=== PATIENT | female | born 1945 | race Caucasian/White ===

== ENCOUNTER 2020-01-11 14:45 | Outpatient (CLI) | payer MEDICARE, SELFPAY ==
--- NOTE | ~2020-01-11 | US_ITS ---
EXAMINATION: US retroperitoneal comp DATE: 01/11/2020 15:21 INDICATION: Hypertension, abnormal kidney function TECHNIQUE: Multiple grayscale and Doppler ultrasound images of the kidneys were obtained. COMPARISON: None. FINDINGS: The right kidney measures 9.7 x 4.0 x 4.5 cm. The left kidney measures 9.7 x 4.8 x 4.7 cm a nd contains a cyst. The kidneys demonstrate normal parenchymal echogenicity. There is no hydronephros is. The bladder is normal. IMPRESSION: 1. Normal kidneys without hydronephrosis. Reviewed, dictated and finalized at location A.
== END 2020-01-11 14:46 | disposition home or self-care (01) ==
PROVIDERS: PCP Emergency Medicine; Visit Provider Internal Medicine Nephrology
DX: I10 Essential (primary) hypertension (principal); R94.4 Abnormal results of kidney function studies; I73.9 Peripheral vascular disease, unspecified
CPT/HCPCS: 76770

== ENCOUNTER 2020-12-24 14:21 | Outpatient (CLI) | payer MEDICARE, SELFPAY ==
--- NOTE | ~2020-12-24 | XR_ITS ---
XR wrist LT 2V DATE: 12/24/2020 14:38 INDICATION: Lateral wrist pain following a fall 5 days ago TECHNIQUE: AP and lateral views COMPARISON: None FINDINGS: There is a subtle linear lucency of the lower aspect of the distal radial metaphyseal abhishek x suggesting a nondisplaced fracture. No other fracture or dislocation is evident. Osteopenia. IMPRESSION: Probable subtle linear nondisplaced distal radial anterior metaphyseal cortical fracture Reviewed, dictated and finalized at location A. IMPRESSION: Probable subtle linear nondisplaced distal radial anterior metaphys eal cortical fracture
== END 2020-12-24 14:22 | disposition home or self-care (01) ==
PROVIDERS: PCP Emergency Medicine; Visit Provider Emergency Medicine
DX: M85.832 Other specified disorders of bone density and structure, left forearm (principal)
CPT/HCPCS: 73100

== ENCOUNTER 2021-09-23 17:58 | Emergency (ER) | payer MEDICARE, SELFPAY ==
[2021-09-23] VITALS (7 sets, daily range): BP systolic 191–293; BP diastolic 63–95; PULSE 52–56; RESP 12–17; TEMP 36.8; O2SAT 98–100
--- NOTE | ~2021-09-23 | XR_ITS ---
XR chest 2V DATE: 09/23/2021 18:33 INDICATION: Hypertension spike for 3 days. Headache. TECHNIQUE: PA and lateral views COMPARISON: 04/08/2018 PA and lateral chest FINDINGS: Cardiac megaly. Aortic calcification and ectasia and unfolding. No hilar or mediastinal enl argement. There is old pulmonary granulomatous disease. Moderate hyperinflation. No pulmonary infiltrate or consolidation, pleural effusion or pulmonary vasc ular congestion or pneumothorax. There is degenerative spurring of the thoracic and lumbar spine. IMPRESSION: Bilateral hyperinflation, suggesting COPD Cardiac megaly Aortic atherosclerosis Old pulmonary granulomatous disease Reviewed, dictated and finalized at location A. MATCHER AND FITTER
--- NOTE | 2021-09-23 18:08 | ECG_ITS ---
Measurements Intervals [place] Rate: 56 P: 54 [place]: 156 QRS: -8 QRSD: 83 T: 72 QT: 433 QTc: 419 Interpretive Statements SINUS BRADYCARDIA DELAYED R-WAVE PROGRESSION POSSIBLE LEFT ATRIAL ENLARGEMENT [-0.1mV P WAVE IN V1/V2] NONSPECIFIC T-WAVE ABNORMALITY ABNORMAL EKG NO PREVIOUS ECG AVAILABLE FOR COMPARISON Electronically Signed On 09-24-2021 9:02:28 SAND CARRIER by Paco Castañeda M.D.
[2021-09-23 18:32] LABS: Basophils Percent Auto 0.5 % (0.2-1.2); Eosinophils Absolute Auto 0.4 K/mm3 (0-0.3); Eosinophils Percent Auto 4.2 % (0-4.4); Hematocrit 31.8 % (37.0-47.0); Immature Granulocyte Absolute 0.03 K/mm3 (0.00-0.031); Immature Granulocyte Percent A 0.4 % (0-0.5); Immature Platelet Fraction Pct 7.5 % (0.9-11.2); Lymphocytes Absolute Auto 2.25 K/mm3 (0.9-3.2); Lymphocytes Percent Auto 26.5 % (18.3-44.2); Mean Corpuscular HGB Conc 31.4 g/dl (32-36); Mean Corpuscular Hemoglobin 28.5 pg (26-34); Mean Corpuscular Volume 90.6 fl (80-100); Mean Platelet Volume 11.7 fl (7.4-10.4); Monocytes Absolute Auto 0.8 K/mm3 (0.1-0.6); Monocytes Percent Auto 9.8 % (2.6-8.5); Neutrophils Percent Auto 58.6 % (45.5-73.1); Platelet Count Result 143 k/mm3 (150-375); Red Blood Count 3.51 M/mm3 (4.2-5.4); Red Cell Distribution Width 15.1 % (11.5-14.5); White Blood Count 8.5 K/mm3 (4.5-10.0)
[2021-09-23 18:41] LABS: Prothrombin Time 12.8 Seconds (11.1-14.7)
[2021-09-23 18:42] LABS: Partial Thromboplastin Time 29.7 SECONDS (22.3-36.8)
[2021-09-23 18:53] LABS: Alanine Aminotransferase 18 U/L (4-35); Albumin Level 4.3 g/dL (3.5-5.1); Alkaline Phosphatase 84 U/L (38-126); Anion Gap 9 mmol/L (8-16); Aspartate Amino Transferase 32 U/L (14-36); Bilirubin,Total 0.5 mg/dL (0.2-1.3); Blood Urea Nitrogen 42 mg/dL (7-17); Calcium 9.3 mg/dL (8.4-10.2); Carbon Dioxide 22 mmol/L (22-30); Chloride 104 mmol/L (98-107); Estimated CRCL calculation 20 ml/min; Estimated Glomerular Filt Rate 24; Glucose 100 mg/dL (65-110); Lipase 284 U/L (23-300); Sodium 135 mmol/L (137-145)
[2021-09-23 19:05] LABS: Troponin I < 0.012 ng/mL (0.000-0.034)
[2021-09-23] MEDS: ASPIRIN 81 MG CHEWABLE TABLET 324 MG PO (19:24)
--- NOTE | 2021-09-23 20:12 | ED.RECABL ---
HPI - Recheck/Abnormal Lab/Rx General Chief Complaint: Recheck/Abnormal Lab/Rx Stated Complaint: high BP Time Seen by Provider: 09/23/21 19:41 Source: patient History of Present Illness HPI narrative: Patient presents with elevated blood pressure. Reports she checked it because she felt tense inside and noticed it was greater than 200. Reports her blood pressure fluctuates quite a bit from the 130 systolic to the 180s systolic. She denies any recent changes to her medication and reports she is diligent about taking her blood pressure medication. She currently reports a posterior headache denies any focal numbness or weakness denies any changes in vision or hearing denies any chest pain or shortness of breath Related Data Allergies Allergy/AdvReac Type Severity Reaction Status Date / Time No Known Allergies Allergy Verified 04/22/21 14:41 Review of Systems Review of Systems: CONSTITUTIONAL: Denies fever, chills, or sweats. EYES: Denies visual changes, redness, or discharge. ENT: Denies rhinorrhea, congestion, sore throat, or otalgia. CARDIOVASCULAR: Denies chest pain, palpitations, or edema. RESPIRATORY: Denies cough or dyspnea. GASTROINTESTINAL: Denies abdominal pain, nausea, vomiting, or diarrhea. GENITOURINARY: Denies dysuria or hematuria. SKIN: Denies rash or itching. MUSCULOSKELETAL: Denies back pain, joint pain, or myalgia. NEUROLOGIC: Denies numbness, dizziness, or weakness. PSYCHIATRIC: Denies anxiety or depression. All systems reviewed & are unremarkable except as noted in HPI and below PMFSH Past Medical History Medical History CKD (chronic kidney disease) stage 4, GFR 15-29 ml/min HLD (hyperlipidemia) Hypertension Kidney disease Wrist fracture, left Surgical History Surgical History History of intravascular stent placement History of surgery Right leg artery surgery Family History Family History Father Cerebrovascular accident, Onset Age: 49 Other Asthma Diabetes mellitus Hypertension Kidney disorder Social History Social History Smoking packs per day: 2 Smoking cigarettes per day: 40.0 Years smoked: 15 Smoking pack-years: 30.00 Smoking end date: 07/26/13 Alcohol intake: current Drinks per week: 4 Substance use: never Substance use type: does not use Gender identity (if verbalized by the patient): Female Exam Narrative: GENERAL: Well-appearing, well-nourished, and in no acute distress. HEAD: Normocephalic, atraumatic. EYES: PERRLA and EOMI. ENT: Nares clear, no rhinorrhea or epistaxis. Mucous membranes moist. NECK: Supple. No masses. No JVD CHEST: Clear to auscultation. No respiratory distress. No wheezes rales or rhonchi HEART: Regular rate and rhythm. No murmur heard. Normal peripheral pulses. ABDOMEN: Soft, nontender, nondistended, normal active bowel sounds. EXTREMITIES: Normal range of motion. No edema. SKIN: Warm, dry, no rash. NEURO: Cranial nerves II through XII are intact patient on 5 out of 5 strength in all extremities sensation intact to light touch in all extremities alert and oriented x3. PSYCH: Normal mood and affect. Course Reevaluation(s) Reevaluation #1: Patient is resting comfortably results reviewed with patient. Patient prefers outpatient management of her symptoms will increase her medication have her follow-up with her primary care provider. Time: 21:34 Vital Signs Vital signs: Vital Signs Temperature 36.8 C 09/23/21 18:08 Pulse Rate 56 L 09/23/21 18:08 Respiratory Rate 16 09/23/21 18:08 Blood Pressure 293/95 H 09/23/21 18:08 Pulse Oximetry 100 09/23/21 18:08 Temperature 36.8 C 09/23/21 18:08 Pulse Rate 56 L 09/23/21 22:05 Respiratory Rate 17 09/23/21 22:05 Blood Pressure 197/6
[2021-09-23 20:26] LABS: Add Urine Microscopic? NO; Appearance Urine Clear (Clear); Bilirubin Urine Negative (Negative); Blood Urine Negative (Negative); Color Urine Colorless (Yellow); Glucose Urine UA Negative (Negative); Ketones Urine Negative (Negative); Leukocyte Esterase Ur Negative LEU/UL (Negative); Nitrate Urine Negative (Negative); Protein Urine Negative (Negative); Specific Grav Ur 1.003 (1.001-1.035); Urobilinogen Urine Negative mg/dL (<2.0)
[2021-09-23] MEDS: hydrALAZINE HCL 20 MG/ML VIAL 10 MG IV PUSH (20:33)
[2021-09-23 21:12] LABS: Troponin I < 0.012 ng/mL (0.000-0.034)
== END 2021-09-23 22:07 | disposition home or self-care (01) ==
PROVIDERS: Emergency Medicine; Emergency Provider Emergency Medicine; PCP Emergency Medicine
DX: I12.9 Hypertensive chronic kidney disease with stage 1 through stage 4 chronic kidney disease, or unspecified chronic kidney disease (principal); N18.4 Chronic kidney disease, stage 4 (severe); Z87.891 Personal history of nicotine dependence; J44.9 Chronic obstructive pulmonary disease, unspecified
CPT/HCPCS: 36415; 71046; 80053; 81003; 83690; 84484; 85025; 85055; 85610; 85730; 93005; 96374; 99284; A9270; J0360

== ENCOUNTER 2021-09-30 16:17 | Outpatient (CLI) | payer MEDICARE, SELFPAY ==
--- NOTE | ~2021-09-30 | MM_ITS ---
EXAMINATION: MM screening arthur BI w arash HISTORY: Screening TECHNIQUE: Craniocaudal and mediolateral oblique 3-D tomosynthesis images were obtained and synthetic 2-D images were generated. CAD analysis was submitted and interpreted. COMPARISON: Comparison to multiple prior studies sequentially, with oldest reviewed study dated 05/26. BREAST PARENCHYMAL COMPOSITION: The breasts are extremely dense, which lowers the sensitivity of mamm ography FINDINGS: There is no evidence of suspicious mass, calcification, or architectural distortion to sugg est malignancy in either breast. There has been no suspicious interval change. IMPRESSION: 1. No mammographic evidence of malignancy. 2. Recommend routine screening mammography in one year. BI-RADS Category 1: Negative Reviewed, dictated and finalized at location A. ED PIPE MAKER
== END 2021-09-30 16:18 | disposition home or self-care (01) ==
PROVIDERS: PCP Emergency Medicine; Visit Provider Emergency Medicine
DX: Z12.31 Encounter for screening mammogram for malignant neoplasm of breast (principal)
CPT/HCPCS: 77063; 77067

== ENCOUNTER 2021-10-08 09:24 | Emergency (ER) | payer MEDICARE, SELFPAY ==
--- NOTE | ~2021-10-08 | XR_ITS ---
EXAMINATION: XR chest 2V DATE: 10/08/2021 11:29 INDICATION: Hypertension TECHNIQUE: PA and lateral views of the chest were obtained. COMPARISON: Chest radiograph dated 09/23/2021 FINDINGS: Multiple bilateral calcified pulmonary nodules along with calcified hilar and mediastinal lymph nodes consistent with old granulomatous disease. No other airspace opacities, pulmonary edema, pleural eff usion or pneumothorax. Cardiomegaly. Mild thoracic spondylosis. IMPRESSION: 1. Cardiomegaly. Reviewed, dictated and finalized at location A. IMPRESSION: 1. Cardiomegaly.
[2021-10-08 09:26] VITALS: BP 222/86; PULSE 55; RESP 16; TEMP 36.6; O2SAT 100
[2021-10-08 09:49] VITALS: BP 211/73; PULSE 52; RESP 13; O2SAT 100
--- NOTE | 2021-10-08 11:08 | ECG_ITS ---
Measurements Intervals [place] Rate: 51 P: 50 [place]: 132 QRS: -12 QRSD: 81 T: 65 QT: 436 QTc: 403 Interpretive Statements SINUS BRADYCARDIA SHORT MN INTERVAL, NO DELTA WAVE SEEN COMPARED TO ECG 09/23/2021 18:13:57 NO SIGNIFICANT CHANGES Electronically Signed On 10-08-2021 13:15:18 CDT by Domi Arroyo M.D.
[2021-10-08 11:25] VITALS: BP 197/71; PULSE 52; RESP 18; O2SAT 100
[2021-10-08 11:32] LABS: Basophils Percent Auto 0.3 % (0.2-1.2); Eosinophils Absolute Auto 0.1 K/mm3 (0-0.3); Eosinophils Percent Auto 1.3 % (0-4.4); Hematocrit 33.5 % (37.0-47.0); Hemoglobin 10.4 g/dL (12.0-15.0); Immature Granulocyte Absolute 0.02 K/mm3 (0.00-0.031); Immature Granulocyte Percent A 0.2 % (0-0.5); Lymphocytes Absolute Auto 1.21 K/mm3 (0.9-3.2); Lymphocytes Percent Auto 14.1 % (18.3-44.2); Mean Corpuscular Hemoglobin 28.6 pg (26-34); Mean Platelet Volume 11.4 fl (7.4-10.4); Monocytes Absolute Auto 0.5 K/mm3 (0.1-0.6); Monocytes Percent Auto 5.9 % (2.6-8.5); Neutrophils Absolute Auto 6.7 K/mm3 (1.3-6.7); Neutrophils Percent Auto 78.2 % (45.5-73.1); Platelet Count Result 180 k/mm3 (150-375); Red Blood Count 3.64 M/mm3 (4.2-5.4); Red Cell Distribution Width 15.5 % (11.5-14.5); White Blood Count 8.6 K/mm3 (4.5-10.0)
[2021-10-08 11:41] LABS: Alanine Aminotransferase 23 U/L (4-35); Albumin Level 4.4 g/dL (3.5-5.1); Alkaline Phosphatase 83 U/L (38-126); Anion Gap 8 mmol/L (8-16); Aspartate Amino Transferase 34 U/L (14-36); Bilirubin,Total 0.4 mg/dL (0.2-1.3); Blood Urea Nitrogen 38 mg/dL (7-17); Calcium 9.8 mg/dL (8.4-10.2); Carbon Dioxide 26 mmol/L (22-30); Chloride 107 mmol/L (98-107); Estimated CRCL calculation 20 ml/min; Estimated Glomerular Filt Rate 24; Glucose 115 mg/dL (65-110); Lipase 315 U/L (23-300); Potassium 4.8 mmol/L (3.4-5.0); Sodium 141 mmol/L (137-145)
[2021-10-08 11:45] LABS: INR 0.9; Prothrombin Time 11.9 Seconds (11.1-14.7)
[2021-10-08 11:55] LABS: Troponin I < 0.012 ng/mL (0.000-0.034)
[2021-10-08 13:12] VITALS: BP 215/74; PULSE 52; RESP 16; O2SAT 100
[2021-10-08] MEDS: hydrALAZINE HCL 20 MG/ML VIAL 10 MG IV PUSH (13:13)
[2021-10-08 13:54] VITALS: BP 183/67; PULSE 60; RESP 18; O2SAT 100
--- NOTE | 2021-10-08 14:33 | ED.GENADULT ---
HPI - General Adult General Chief complaint: Recheck/Abnormal Lab/Rx Stated complaint: HTN Time Seen by Provider: 10/08/21 11:09 Source: patient Mode of arrival: ambulatory Limitations: no limitations History of Present Illness HPI narrative: 76-year-old with a history of hypertension and CKD here with complaints of elevated blood pressure for last few days. Patient states that she has been taking all her medications as prescribed. She presently denies any headache, chest pain, blurred vision. Onset (ago): day(s) (1) Exacerbating factors: none Related Data Allergies Allergy/AdvReac Type Severity Reaction Status Date / Time No Known Allergies Allergy Verified 10/08/21 09:26 Review of Systems Review of Systems: All systems reviewed & are unremarkable except as noted in HPI and below Constitutional: Constitutional: Reports no additional constitutional complaints Eyes: Eyes: Reports no additional eye complaints ENT: Reports system reviewed and no additional complaints, except as documented Cardiovascular: Cardiovascular: Reports no additional cardiovascular complaints Respiratory: Respiratory: Reports no additional respiratory complaints Gastrointestinal: Gastrointestinal: Reports no additional gastrointestinal complaints Musculoskeletal: Musculoskeletal: Reports no additional musculoskeletal complaints Integumentary/Breasts: Skin/Breast: Reports system reviewed and no additional complaints, except as docu Neurologic: Reports system reviewed and no additional complaints, except as documented PMFSH Past Medical History Medical History CKD (chronic kidney disease) stage 4, GFR 15-29 ml/min HLD (hyperlipidemia) Hypertension Kidney disease Wrist fracture, left Surgical History Surgical History History of intravascular stent placement History of surgery Right leg artery surgery Family History Family History Father Cerebrovascular accident, Onset Age: 49 Other Asthma Diabetes mellitus Hypertension Kidney disorder Social History Social History Smoking packs per day: 2 Smoking cigarettes per day: 40.0 Years smoked: 15 Smoking pack-years: 30.00 Smoking end date: 07/26/13 Alcohol intake: current Drinks per week: 4 Substance use: never Substance use type: does not use Gender identity (if verbalized by the patient): Female Exam Narrative: GENERAL: Well-appearing, well-nourished, and in no acute distress. HEAD: Normocephalic, atraumatic. EYES: PERRLA and EOMI. NECK: Supple. CHEST: Clear to auscultation. No respiratory distress. HEART: Regular rate and rhythm. No murmur heard. Normal peripheral pulses. ABDOMEN: Soft, nontender, nondistended, normal active bowel sounds. EXTREMITIES: Normal range of motion. No edema. SKIN: Warm, dry, no rash. NEURO: No focal deficits. Alert and oriented x3. PSYCH: Normal mood and affect. Course Course Emergency Course: Patient presently is asymptomatic however her blood pressure was 222/86 after repeated checks I did give her IV hydralazine 10 mg which brought her blood pressure down to 176/72. She states she is feeling much better. Informed her to take her home medications, follow-up with her primary doctor. discussed with Dr. Brennan recommended to increase the dose of Losartan to 100 mg daily and will follow up in the office in 2 days. Vital Signs Vital signs: Vital Signs Temperature 36.6 C 10/08/21 09:26 Pulse Rate 55 L 10/08/21 09:26 Respiratory Rate 16 10/08/21 09:26 Blood Pressure 222/86 H 10/08/21 09:26 Pulse Oximetry 100 10/08/21 09:26 Temperature 36.6 C 10/08/21 09:26 Pulse Rate 60 10/08/21 13:54 Respiratory Rate 18 10/08/21 13:54 Blood Pressure 183/67 H 10/08/21 13:54 Pulse Oxi
[2021-10-08 14:41] LABS: Troponin I < 0.012 ng/mL (0.000-0.034)
[2021-10-08 14:53] VITALS: BP 182/61; PULSE 60; RESP 18; O2SAT 100
== END 2021-10-08 15:09 | disposition home or self-care (01) ==
PROVIDERS: Emergency Medicine; Emergency Provider Family Medicine; PCP Emergency Medicine
DX: I12.9 Hypertensive chronic kidney disease with stage 1 through stage 4 chronic kidney disease, or unspecified chronic kidney disease (principal); N18.4 Chronic kidney disease, stage 4 (severe); R00.1 Bradycardia, unspecified; F17.210 Nicotine dependence, cigarettes, uncomplicated; E78.5 Hyperlipidemia, unspecified
CPT/HCPCS: 36415; 71046; 80053; 83690; 84484; 85025; 85610; 85730; 93005; 96374; 99284; J0360

== ENCOUNTER 2022-06-20 20:05 | Inpatient (IN) | payer MEDICARE, SELFPAY ==
[2022-06-20] VITALS (9 sets, daily range): BP systolic 200–233; BP diastolic 74–107; PULSE 69–87; RESP 18–31; TEMP 36.6; O2SAT 90–96
--- NOTE | ~2022-06-20 | XR_ITS ---
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 RESULT: Lines, tubes, and devices: None. Lungs and pleura: Increased diffuse reticular opacities. Increased streaky bibasilar opacities. Cardiomediastinal silhouette: Stable. Other: No acute osseous or upper abdominal finding. IMPRESSION: Interstitial pulmonary edema, with bibasilar atelectasis. Reviewed, dictated and finalized at location K. M [employer] TURBINE ASSEMBLER
--- NOTE | 2022-06-20 20:39 | ECG_ITS ---
Measurements Intervals [place] Rate: 71 P: 51 [place]: 147 QRS: -16 QRSD: 79 T: 75 QT: 385 QTc: 419 Interpretive Statements SINUS RHYTHM POSSIBLE LEFT ATRIAL ENLARGEMENT NONSPECIFIC ST & T-WAVE ABNORMALITY- ANTEROLAT/HIGH LAT LEADS BASELINE ARTIFACT- II, AVF, V4-V5 BORDERLINE ECG COMPARED TO ECG 10/08/2021 11:52:52 SIN[address] NOW PRESENT ST-T WAVE ABNORMALITY NOW PRESENT Electronically Signed On 06-20-2022 22:15:10 ELECTRONIC PUBLISHER by Richard Padilla D.O.
--- NOTE | 2022-06-20 20:46 | ED.URI ---
HPI - URI/Sore Throat General Chief Complaint: Upper Respiratory Infection Stated Complaint: URI, dyspnea Time Seen by Provider: 06/20/22 20:42 History of Present Illness HPI Narrative: Patient is a 77-year-old female with a history of hypertension, CKD presenting with dyspnea. Patient states that she has had cold symptoms for the last several days. Today she was able to go to work but she felt increasingly short of breath throughout the day. By the time she got home she felt like she could not even walk around without getting extremely winded. States that she still has a cough and nasal congestion. She denies any chest pain. No leg swelling. No headache, abdominal pain, nausea or vomiting, diarrhea, dysuria. Related Data Home Medications Medication Instructions Recorded Confirmed aspirin 81 mg chewable tablet 81 mg PO DAILY 06/21/22 06/21/22 atorvastatin 20 mg tablet 20 mg PO DAILY 06/21/22 06/21/22 cholecalciferol (vitamin D3) 50 50 mcg PO DAILY 06/21/22 06/21/22 mcg (2,000 unit) tablet (Vitamin D3) nebivolol 20 mg tablet (Bystolic) 20 mg PO DAILY 06/21/22 06/21/22 Allergies Allergy/AdvReac Type Severity Reaction Status Date / Time No Known Allergies Allergy Verified 06/21/22 00:59 Review of Systems Review of Systems: All systems reviewed & are unremarkable except as noted in HPI and below PMFSH Past Medical History Medical History CKD (chronic kidney disease) stage 4, GFR 15-29 ml/min HLD (hyperlipidemia) Hypertension Kidney disease Wrist fracture, left Surgical History Surgical History History of intravascular stent placement History of surgery Right leg artery surgery Family History Family History Father Cerebrovascular accident, Onset Age: 49 History of blood clots Kidney disorder Hypertension Mother Asthma Diabetes mellitus Sibling Congestive heart failure Social History Social History Smoking packs per day: 2 Smoking cigarettes per day: 40.0 Years smoked: 25 Smoking pack-years: 50.00 Smoking status: Former smoker Tobacco type: cigarettes Second hand tobacco smoke exposure: No Smoking end date: 07/26/13 Alcohol intake: current Drinks per week: 4 Substance use: former Substance use type: marijuana Lack of Transportation: No Lack of Food: Never True Current Housing: I Have Housing Concerned About Future Housing: No Difficulty Paying Gas/Electric Bills: No Difficulty Paying for Meds: No Currently Unemployed: No Education: High School Diploma/GED Difficulty w/ Childcare or Family Care: No Gender identity (if verbalized by the patient): Female Spiritual care concerns: No Exam Narrative: GENERAL: Well-appearing, well-nourished, and in no acute distress. HEAD: Normocephalic, atraumatic. EYES: PERRLA and EOMI. ENT: Nares clear, no rhinorrhea or epistaxis. Mucous membranes moist. NECK: Supple. CHEST: Clear to auscultation. No respiratory distress. Tachypneic HEART: Regular rate and rhythm. No murmur heard. Normal peripheral pulses. ABDOMEN: Soft, nontender, nondistended, normal active bowel sounds. EXTREMITIES: Normal range of motion. No edema. SKIN: Warm, dry, no rash. NEURO: No focal deficits. Alert and oriented x3. PSYCH: Normal mood and affect. Course Vital Signs Vital signs: Vital Signs Temperature 97.8 F 06/20/22 20:07 Pulse Rate 80 06/20/22 20:07 Respiratory Rate 18 06/20/22 20:07 Blood Pressure 200/107 H 06/20/22 20:07 Pulse Oximetry 93 06/20/22 20:07 Oxygen Delivery Room Air 06/20/22 20:07 Temperature 98.5 F 06/21/22 21:39 Pulse Rate 91 06/21/22 21:39 Respiratory Rate 16 06/21/22 21:39 Blood Pressure 179/80 H 06/21/22 21:39 Pulse Oximetry 93 06/21/22 2
[2022-06-20 21:07] LABS: Basophils Percent Auto 0.3 % (0.2-1.2); Eosinophils Absolute Auto 0.3 K/mm3 (0-0.3); Hematocrit 29.2 % (37.0-47.0); Immature Granulocyte Absolute 0.06 K/mm3 (0.00-0.031); Immature Granulocyte Percent A 0.4 % (0-0.5); Lymphocytes Absolute Auto 1.46 K/mm3 (0.9-3.2); Lymphocytes Percent Auto 9.9 % (18.3-44.2); Mean Corpuscular HGB Conc 30.8 g/dl (32-36); Mean Corpuscular Hemoglobin 27.8 pg (26-34); Mean Corpuscular Volume 90.1 fl (80-100); Mean Platelet Volume 10.8 fl (7.4-10.4); Monocytes Absolute Auto 1.2 K/mm3 (0.1-0.6); Monocytes Percent Auto 8.1 % (2.6-8.5); Neutrophils Absolute Auto 11.7 K/mm3 (1.3-6.7); Neutrophils Percent Auto 79.3 % (45.5-73.1); Platelet Count Result 247 k/mm3 (150-375); Red Blood Count 3.24 M/mm3 (4.2-5.4); Red Cell Distribution Width 15.9 % (11.5-14.5); White Blood Count 14.8 K/mm3 (4.5-10.0)
[2022-06-20] MEDS: SODIUM CHLORIDE 0.9% IV 1,000 ML 999 ML IV CONT (21:07)
[2022-06-20 21:17] LABS: Alanine Aminotransferase 47 U/L (6-35); Albumin Level 3.9 g/dL (3.5-5.1); Alkaline Phosphatase 129 U/L (38-126); Anion Gap 7 mmol/L (8-16); Aspartate Amino Transferase 91 U/L (14-36); Bilirubin,Total 0.6 mg/dL (0.2-1.3); Blood Urea Nitrogen 25 mg/dL (7-17); Calcium 8.8 mg/dL (8.4-10.2); Carbon Dioxide 23 mmol/L (22-30); Chloride 109 mmol/L (98-107); Estimated CRCL calculation 26 ml/min; Estimated Glomerular Filt Rate 34; Glucose 146 mg/dL (65-110); Potassium 3.7 mmol/L (3.4-5.0); Sodium 139 mmol/L (137-145)
--- NOTE | 2022-06-20 21:24 | PC.NURSE ---
Liborio Sutton instructed this tech to walk with a pulse ox. started at 93% and dropped to 89 by the time pt got back to room. Pt. states that walking does make her increasingly short of breath. LIBORIO Sutton notified.
[2022-06-20 21:44] LABS: Influenza A QL RT-PCR Negative (Negative); Influenza B QL RT-PCR Negative (Negative); RSV RNA, RT-PCR Negative (Negative); SARS-CoV-2 RNA PCR Negative
[2022-06-20 21:48] LABS: Troponin I 0.122 ng/mL (0.000-0.034)
[2022-06-20] MEDS: hydrALAZINE HCL 20 MG/ML VIAL IV PUSH (21:56)
[2022-06-20 22:10] LABS: NT Pro B Type Natriuretic Pept 8220 pg/mL (5-100)
--- NOTE | 2022-06-20 22:11 | PM.IMHP ---
H&P: HPI History of Present Illness Date/Time: 06/20/22 22:11 Chief Complaint: Shortness of breath. [facility] Past Medical History Medical History CKD (chronic kidney disease) stage 4, GFR 15-29 ml/min HLD (hyperlipidemia) Hypertension Kidney disease Wrist fracture, left Surgical History Surgical History History of intravascular stent placement History of surgery Right leg artery surgery Family History Family History (Updated 06/21/22 @ 01:25 by Coretta Phillips RN) Father Cerebrovascular accident, Onset Age: 49 History of blood clots Kidney disorder Hypertension Mother Asthma Diabetes mellitus Sibling Congestive heart failure Social History Social History Smoking packs per day: 2 Smoking cigarettes per day: 40.0 Years smoked: 25 Smoking pack-years: 50.00 Smoking status: Former smoker Tobacco type: cigarettes Second hand tobacco smoke exposure: No Smoking end date: 07/26/13 Alcohol intake: current Drinks per week: 4 Substance use: former Substance use type: marijuana Lack of Transportation: No Lack of Food: Never True Current Housing: I Have Housing Concerned About Future Housing: No Difficulty Paying Gas/Electric Bills: No Difficulty Paying for Meds: No Currently Unemployed: No Education: High School Diploma/GED Difficulty w/ Childcare or Family Care: No Gender identity (if verbalized by the patient): Female Spiritual care concerns: No Meds Home Medications and Allergies Home Medications Medication Instructions Recorded Confirmed Type amlodipine 10 mg tablet (Norvasc) 10 mg PO DAILY #90 tabs 10/21/21 06/21/22 Rx clopidogrel 75 mg tablet 75 mg PO DAILY #90 tabs 05/19/22 06/21/22 Rx losartan 100 mg tablet 100 mg PO DAILY #90 tabs 05/19/22 06/21/22 Rx aspirin 81 mg chewable tablet 81 mg PO DAILY 06/21/22 06/21/22 History atorvastatin 20 mg tablet 20 mg PO DAILY 06/21/22 06/21/22 History cholecalciferol (vitamin D3) 50 50 mcg PO DAILY 06/21/22 06/21/22 History mcg (2,000 unit) tablet (Vitamin D3) nebivolol 20 mg tablet (Bystolic) 20 mg PO DAILY 06/21/22 06/21/22 History Allergies Allergy/AdvReac Type Severity Reaction Status Date / Time No Known Allergies Allergy Verified 06/21/22 00:59 Vital Signs Vital Signs - 24 hr 06/20/22 20:07 06/20/22 20:17 06/20/22 20:20 Temperature 97.8 F Pulse Rate 80 81 Respiratory Rate 18 31 H Blood Pressure 200/107 H Pulse Oximetry 93 90 93 Oxygen Delivery Room Air Room Air 06/20/22 20:39 06/20/22 21:32 Temperature Pulse Rate 69 Respiratory Rate 30 H Blood Pressure 233/80 H 223/83 H Pulse Oximetry 95 Oxygen Delivery H&P: Results Labs Labs: Short CBC 06/20/22 Range/Units 21:01 WBC 14.8 H (4.5-10.0) K/mm3 Hgb 9.0 L (12.0-15.0) g/dL Hct 29.2 L (37.0-47.0) % Plt Count 247 (150-375) k/mm3 BMP 06/20/22 21:01 Sodium 139 Potassium 3.7 Chloride 109 H Carbon Dioxide 23 BUN 25 H D Creatinine 1.50 H Glucose 146 H Calcium 8.8 Cardiac Enzymes 06/20/22 Range/Units 21:01 Troponin I 0.122 H* (0.000-0.034) ng/mL Liver Function 06/20/22 Range/Units 21:01 Total Bilirubin 0.6 (0.2-1.3) mg/dL AST 91 H (14-36) U/L ALT 47 H (6-35) U/L Alkaline Phosphatase 129 H (38-126) U/L Albumin 3.9 (3.5-5.1) g/dL Assessment and Plan Assessment and plan (1) CKD (chronic kidney disease) stage 4, GFR 15-29 ml/min: Code(s): N18.4 - Chronic kidney disease, stage 4 (severe) Status: Acute (2) Hypertension: Qualifiers: Hypertension type: primary hypertension Qualified Code(s): I10 - Essential (primary) hypertension Code(s): I10 - Essential (primary) hypertension Status: Acute (3) CHF (conge
[2022-06-20] MEDS: ASPIRIN 81 MG CHEWABLE TABLET 324 MG PO (22:23)
[2022-06-20] MEDS: LOSARTAN POTASSIUM 100 MG TABLET PO (22:24)
[2022-06-20] MEDS: amLODIPine BESYLATE 5 MG TABLET 10 MG PO (22:24)
[2022-06-20] MEDS: NEBIVOLOL HCL 5 MG TABLET 20 MG PO (22:25)
[2022-06-21] VITALS (26 sets, daily range): BP systolic 168–209; BP diastolic 61–86; PULSE 71–91; RESP 16–26; TEMP 36.7–37.1; O2SAT 92–99; BMI 28.3
--- NOTE | 2022-06-21 00:52 | ADMGEN ---
This patient, Veronica Bowles, was admitted to IMU Room 214-01 on 06/21/22 at 0050. Patient/family oriented to hospital policies and general routines including ID bracelet, bed and alarms, visiting hours, pain management, procedures, bathroom and other care routines, personal items, smoking policy, room service/diet, and visiting hours. Information on how to activate the Rapid Response Team has been discussed. Patient/Family are encouraged to report perceived risks to care and to ask questions if they do not understand what they are told or what they should do.
--- NOTE | 2022-06-21 02:46 | PM.IMHP ---
H&P: HPI History of Present Illness Date/Time: 06/21/22 02:46 Chief Complaint: shortness of breath Narrative: this is a 77-year-old female with past medical history significant for COPD / emphysema, former smoker, hypertension, chronic kidney disease, dyslipidemia, peripheral arterial disease, coronary artery disease. patient presents to the emergency room due to shortness of breath, cough productive of sputum which is yellowish which is different to her usual patient used to be a smoker but quit a number of years ago, patient denies any fevers, rigors, chills, nausea, vomiting, abdominal pain, diarrhea denies chest pain, palpitations, no leg swelling, no PND, no orthopnea, has had progressively worsening shortness of breath for the last 3 days with productive cough of sputum mentioned above. Preliminary workup was significant for presentation to emergency room with a systolic blood pressure in the 200s, brain natriuretic peptide of 8000, creatinine of 1.5, patient tested negative for COVID-19, influenza A, influenza B, and RSV, a chest x-ray showed interstitial edema. Patient is been admitted for further evaluation management and treatment. Review of Systems Review of Systems: Shortness of breath, cough productive of yellowish sputum. Constitutional: Constitutional: Reports fatigue, Reports fever(s), Reports lethargy, Denies night sweats, Reports poor appetite and Denies weakness Eyes: Eyes: Denies change in vision ENT: Denies dysphagia, Denies vertigo, Denies dizziness and Denies odynophagia Cardiovascular: Cardiovascular: Denies chest pain, Denies irregular heart rhythm, Denies leg edema, Denies lightheadedness and Denies palpitations Respiratory: Respiratory: Reports change in phlegm color, Reports chest congestion, Reports cough, Reports excessive phlegm production, Reports dyspnea, Reports dyspnea on exertion and Reports wheezing Gastrointestinal: Gastrointestinal: Denies abdominal pain, Denies dyspepsia, Denies heartburn, Denies diarrhea, Denies nausea and Denies vomiting Genitourinary: Genitourinary: Denies dysuria Musculoskeletal: Musculoskeletal: Reports myalgias Integumentary/Breasts: Skin/Breast: Denies rash Neurologic: Denies focal weakness and Denies Sensory deficit (Neuro) Psychiatric: Psychiatric: Reports no additional psychiatric complaints and Reports as per HPI Endocrine: Endocrine: Denies cold intolerance, Denies flushing, Denies heat intolerance, Denies polyphagia, Denies polydipsia and Denies palpitations Hematologic/Lymphatic: Hematologic/Lymphatic: Reports no additional hematologic/lymphatic complaints and Reports as per HPI Allergic/Immunologic: Allergic/Immunologic: Reports no additional allergic/immunologic complaints and Reports as per HPI [facility] Past Medical History Medical History CKD (chronic kidney disease) stage 4, GFR 15-29 ml/min HLD (hyperlipidemia) Hypertension Kidney disease Wrist fracture, left Surgical History Surgical History History of intravascular stent placement History of surgery Right leg artery surgery Family History Family History (Updated 06/21/22 @ 01:25 by Coretta Phillips RN) Father Cerebrovascular accident, Onset Age: 49 History of blood clots Kidney disorder Hypertension Mother Asthma Diabetes mellitus Sibling Congestive heart failure Social History Social History Smoking packs per day: 2 Smoking cigarettes per day: 40.0 Years smoked: 25 Smoking pack-years: 50.00 Smoking status: Former smoker Tobacco type: cigarettes Second hand tobacco smoke exposure: No Smoking end date: 07/26/13 Alcohol intake: current Drinks per week: 4 Substance use: former Substance use type: marijuana Lack of Transportation: No Lack of Food: Never True Curre
[2022-06-21 02:51] LABS: Troponin I 0.762 ng/mL (0.000-0.034)
[2022-06-21] MEDS: cefTRIAXone 2 GM in SODIUM CHLORIDE 0.9% IV 100 ML 200 ML IVPB ×2 (03:28→20:41)
[2022-06-21] MEDS: hydrALAZINE HCL 20 MG/ML VIAL 10 MG IV PUSH (03:28)
[2022-06-21] MEDS: IPRATROPIUM BR 0.02% INH SOLN 0.5 MG/2.5 ML VIAL INHALATION ×5 (04:55→19:56)
[2022-06-21] MEDS: ALBUTEROL SULFATE NEB 2.5 MG/3 ML INH INHALATION ×5 (04:55→19:56)
[2022-06-21] MEDS: methylPREDNISolone SOD SUCC 125 MG VIAL 60 MG IV PUSH ×3 (05:44→16:45)
[2022-06-21 05:45] LABS: Troponin I 0.727 ng/mL (0.000-0.034)
[2022-06-21 08:59] LABS: Hematocrit 29.5 % (37.0-47.0); Hemoglobin 9.1 g/dL (12.0-15.0); Mean Corpuscular HGB Conc 30.8 g/dl (32-36); Mean Corpuscular Hemoglobin 27.4 pg (26-34); Mean Corpuscular Volume 88.9 fl (80-100); Mean Platelet Volume 10.3 fl (7.4-10.4); Platelet Count Result 239 k/mm3 (150-375); Red Blood Count 3.32 M/mm3 (4.2-5.4); Red Cell Distribution Width 15.8 % (11.5-14.5); White Blood Count 17.3 K/mm3 (4.5-10.0)
[2022-06-21 09:11] LABS: Alanine Aminotransferase 41 U/L (6-35); Alkaline Phosphatase 137 U/L (38-126); Anion Gap 11 mmol/L (8-16); Aspartate Amino Transferase 52 U/L (14-36); Bilirubin,Total 0.6 mg/dL (0.2-1.3); Blood Urea Nitrogen 21 mg/dL (7-17); Calcium 9.5 mg/dL (8.4-10.2); Carbon Dioxide 18 mmol/L (22-30); Chloride 111 mmol/L (98-107); Estimated CRCL calculation 37 ml/min; Estimated Glomerular Filt Rate 44; Glucose 190 mg/dL (65-110); Magnesium 1.9 mg/dL (1.6-2.3); Potassium 3.4 mmol/L (3.4-5.0); Sodium 140 mmol/L (137-145)
--- NOTE | 2022-06-21 09:28 | ECG_ITS ---
Measurements Intervals [place] Rate: 87 P: 56 CO: 143 QRS: -15 QRSD: 84 T: 64 QT: 370 QTc: 447 Interpretive Statements SINUS RHYTHM WITH SINUS ARRHYTHMIA DELAYED PRECORDIAL R/S TRANSITION NONSPECIFIC ST & T-WAVE ABNORMALITY- DIFFUSE LEADS BORDERLINE ECG COMPARED TO ECG 06/20/2022 20:48:25 SINUS ARRHYTHMIA NOW PRESENT Electronically Signed On 06-21-2022 15:53:45 FARM ADVISER by Richard Padilla D.O.
[2022-06-21 10:03] LABS: Troponin I 0.485 ng/mL (0.000-0.034)
--- NOTE | 2022-06-21 11:01 | PM.CNCAR ---
Assessment and Plan Assessment and plan (1) CHF (congestive heart failure), NYHA class II: Code(s): I50.9 - Heart failure, unspecified Status: Acute (2) Elevated troponin: Code(s): R77.8 - Other specified abnormalities of plasma proteins Status: Acute Plan Elevated troponins and mild pulmonary edema in the setting of hypertensive emergency with SBP in the 220s on presentation is without ischemic changes. This does not appear to be a picture of ACS. She also does have reproducible chest wall tenderness upon palpation. She needs blood pressure control. Recommend continuing Amlodipine 10mg, Losartan 100mg. She is on Bystolic 20mg at home, which can be uptitrated to maximum dose of 40mg daily. Given pulmonary edema, agree with IV Lasix. TTE has been ordered, which will be done tomorrow; will follow up on the results. She is also being treated for a COPD exacerbation. History of Present Illness History of Present Illness Consult date/time: 06/21/22 11:01 Requesting physician: Allison Jordan MD Consult reason: congestive heart failure and Other (Elevated troponin) Reason For Visit: hypertensive emergency Narrative: We are being consulted for elevated troponin. Patient is a 77-year-old female with a history of hypertension, hyperlipidemia, CKD, peripheral vascular disease, COPD who presented who presented to the ER for shortness of breath with productive cough. She began having flu-like symptoms about a week ago. On admission yesterday, she did not report chest pain, but states she began having chest tightness this morning. BP on admission was as high as 233/80. This AM 206/67. ED evaluation shows WBC of 17. Troponin trend of 0.122 --> 0.762 --> 0.727 --> 0.485. NT pro BNP elevated at 8,220. CXR showing interstitial pulmonary edema. EKG on admission showing sinus rhythm with nonspecific STTW changes. Repeat EKG this AM is without significant changes. Review of Systems Review of Systems: 12-point ROS obtained. Negative, unless stated in HPI. [facility] Past Medical History Medical History CKD (chronic kidney disease) stage 4, GFR 15-29 ml/min HLD (hyperlipidemia) Hypertension Kidney disease Wrist fracture, left Surgical History Surgical History History of intravascular stent placement History of surgery Right leg artery surgery Family History Family History Father Cerebrovascular accident, Onset Age: 49 History of blood clots Kidney disorder Hypertension Mother Asthma Diabetes mellitus Sibling Congestive heart failure Social History Social History Smoking packs per day: 2 Smoking cigarettes per day: 40.0 Years smoked: 25 Smoking pack-years: 50.00 Smoking status: Former smoker Tobacco type: cigarettes Second hand tobacco smoke exposure: No Smoking end date: 07/26/13 Alcohol intake: current Drinks per week: 4 Substance use: former Substance use type: marijuana Lack of Transportation: No Lack of Food: Never True Current Housing: I Have Housing Concerned About Future Housing: No Difficulty Paying Gas/Electric Bills: No Difficulty Paying for Meds: No Currently Unemployed: No Education: High School Diploma/GED Difficulty w/ Childcare or Family Care: No Gender identity (if verbalized by the patient): Female Spiritual care concerns: No Meds Home Medications and Allergies Home Medications Medication Instructions Recorded Confirmed Type amlodipine 10 mg tablet (Norvasc) 10 mg PO DAILY #90 tabs 10/21/21 06/21/22 Rx clopidogrel 75 mg tablet 75 mg PO DAILY #90 tabs 05/19/22 06/21/22 Rx losartan 100 mg tablet 100 mg PO DAILY #90 tabs 05/19/22 06/21/22 Rx aspirin 81 mg chewable tablet 81 mg PO DAILY 06/21/22 06/21/22 History atorva
[2022-06-21] MEDS: NEBIVOLOL HCL 5 MG TABLET 20 MG PO ×2 (11:36→12:46)
[2022-06-21] MEDS: FUROSEMIDE INJ 40 MG/4 ML VIAL IV PUSH (11:36)
[2022-06-21] MEDS: ATORVASTATIN 20 MG TABLET PO (11:37)
[2022-06-21] MEDS: ASPIRIN 81 MG CHEWABLE TABLET PO (11:37)
[2022-06-21] MEDS: amLODIPine BESYLATE 5 MG TABLET 10 MG PO (11:37)
[2022-06-21] MEDS: LOSARTAN POTASSIUM 100 MG TABLET PO (11:38)
[2022-06-21] MEDS: CLOPIDOGREL BISULFATE 75 MG TABLET PO (11:38)
[2022-06-21] MEDS: CHOLECALCIFEROL 1,000 UNITS TABLET 2000 UNITS PO (11:38)
[2022-06-21] MEDS: traMADol HCL (*CRX) 50 MG TABLET PO ×2 (11:52→20:44)
[2022-06-21] MEDS: POTASSIUM CHLORIDE 20 MEQ TABLET 40 MEQ PO (11:52)
[2022-06-21] MEDS: hydrALAZINE 10 MG TABLET PO ×3 (12:46→20:40)
--- NOTE | 2022-06-21 13:17 | PC.NURSE ---
This patient, Veronica Bowles, was transferred to [facility] on 06/21/22 at 1314. Personal belongings sent with patient. Report given to Yumiko HELMS. Appropriate documentation sent with patient.
--- NOTE | 2022-06-21 16:06 | PM.IMPN ---
Progress Note: A&P Assessment and Plan (1) CHF (congestive heart failure), NYHA class II: Code(s): I50.9 - Heart failure, unspecified Status: Acute Assessment and Plan: admit to IMU aggressive diuresis echocardiogram in a.m. cardiology consult daily intake and output daily weights fluid restriction to 1500 cc daily 06/21/2022 interval history: 77-year-old female presented emergency department with shortness of upon arrival her systolic blood pressure was 220 and has elevated tropes, patient seen by commercial loan processor does not suspect acute coronary syndrome, commended blood pressure control, currently patient is on amlodipine 10 mg q.day, losartan 100 mg q.day and Bystolic 20 mg q.day commercial loan processor up the dose to 40 mg q.day, upon arrival patient BNP was 8000 and patient is being diuresed with IV Lasix, patient also has history COPD and contributing shortness of breath patient is being treated with methylprednisone and bronchodilator, will continue to monitor will have PT OT evaluate the patient. (2) Hypertension: Qualifiers: Hypertension type: primary hypertension Qualified Code(s): I10 - Essential (primary) hypertension Code(s): I10 - Essential (primary) hypertension Status: Acute Assessment and Plan: uncontrolled resume home meds cultures normalization of blood pressure hydralazine IV p.r.n. for systolic above 190 continue to monitor (3) COPD exacerbation: Code(s): J44.1 - Chronic obstructive pulmonary disease with (acute) exacerbation Status: Acute Assessment and Plan: patient with a change in sputum quality started on antibiotics breathing treatments systemic steroids (4) CKD (chronic kidney disease) stage 4, GFR 15-29 ml/min: Code(s): N18.4 - Chronic kidney disease, stage 4 (severe) Status: Acute Assessment and Plan: BUN and creatinine at patient's baseline continue to monitor daily BMP Subjective Date/time seen: 06/21/22 16:06 ?shortness of breath HPI-Narrative: ?this is a 77-year-old female with past medical history significant for COPD / emphysema, former smoker, hypertension, chronic kidney disease, dyslipidemia, peripheral arterial disease, coronary artery disease. patient presents to the emergency room due to shortness of breath, cough productive of sputum which is yellowish which is different to her usual patient used to be a smoker but quit a number of years ago,? patient denies any fevers, rigors, chills, nausea, vomiting, abdominal pain, diarrhea denies chest pain, palpitations, no leg swelling, no PND, no orthopnea, has had progressively worsening shortness of breath for the last 3 days with productive cough of sputum mentioned above.? Preliminary workup was significant for presentation to emergency room with a systolic blood pressure in the 200s, brain natriuretic peptide of 8000, creatinine of 1.5, patient tested negative for COVID-19, influenza A, influenza B, and RSV,? a chest x-ray showed interstitial edema.? Patient is been admitted for further evaluation management and treatment. 06/21/2022 interval history: 77-year-old female presented emergency department with shortness of upon arrival her systolic blood pressure was 220 and has elevated tropes, patient seen by commercial loan processor does not suspect acute coronary syndrome, commended blood pressure control, currently patient is on amlodipine 10 mg q.day, losartan 100 mg q.day and Bystolic 20 mg q.day commercial loan processor up the dose to 40 mg q.day, upon arrival patient BNP was 8000 and patient is being diuresed with IV Lasix, patient also has history COPD and contributing shortness of breath patient is being treated with methylprednisone and bronchodilator, will continue to monitor will have PT OT evaluate the patient. Review of Systems Review of Systems: 12-point ROS obtained. Negative, unless stated in HPI. Constitutional: Constitutional: Reports fatigue, Reports fever(s),
[2022-06-22] VITALS (16 sets, daily range): BP systolic 145–178; BP diastolic 56–69; PULSE 68–92; RESP 16–18; TEMP 36.3–36.9; O2SAT 92–99
--- NOTE | 2022-06-22 | ECHO_ITS ---
Patient Info Name: Veronica Bowles Age: 77 years : 1945 Gender: Female Ht: 65 in Wt: 170 lbs BSA: 1.90 m2 HR: 81 bpm BP: 178 / 66 mmHg Heart Rhythm: Sinus Rhythm Technical Quality: Good Exam Date: 06/22/2022 11:55 AM Exam Location: [facility] Patient Status: Inpatient Admit Date: 06/20/2022 Staff Ordering Physician: Genie Anaya MD Basket Sorter: Emeli Cook RDCS Attending Provider: Genie Anaya MD Referring Physician: Jaclyn SANTANA; Exam Type: CA echo doppler color flow Study Info Indications - CHF Complete two-dimensional, color flow and Doppler transthoracic echocardiogram is performed. Strain analysis performed. Summary 1. Complete two-dimensional, color flow and Doppler transthoracic echocardiogram is performed. 2. Strain analysis performed. 3. Left ventricular chamber dimension is normal. 4. Left ventricular systolic function is normal, estimated at 65-70%. 5. There is mildly increased left ventricular wall thickness. 6. The left ventricular diastolic function is grade II diastolic dysfunction. 7. Global longitudinal strain is normal at -19 %. 8. Left atrial chamber dimension is moderately enlarged. 9. There is mild mitral valve regurgitation. 10. There is mild tricuspid valve regurgitation. 11. Mild pulmonary hypertension, estimated pulmonary arterial systolic pressure is 43 mmHg. 12. There is mild pulmonic regurgitation. Left Ventricle Left ventricular chamber dimension is normal. Left ventricular systolic function is normal, estimated at 65-70%. There is mildly increased left ventricular wall thickness. The left ventricular diastolic function is grade II diastolic dysfunction. Global longitudinal strain is normal at -19 %. Right Ventricle Right ventricular chamber dimension is normal. Right ventricular systolic function is normal. Left Atria Left atrial chamber dimension is moderately enlarged. Right Atria Right atrial chamber dimension is normal. Atrial Septum Intact interatrial septum visualized by color flow imaging. Aortic Valve The aortic valve is trileaflet. There is mild aortic valve sclerosis. There is no aortic valve stenosis. There is trace aortic valve regurgitation. Pulmonic Valve The pulmonic valve is normal. There is no pulmonic valve stenosis. There is mild pulmonic regurgitation. Mitral Valve The mitral valve has normal leaflets. There is no mitral valve stenosis. There is mild mitral valve regurgitation. Tricuspid Valve The tricuspid valve leaflets are normal. There is no significant tricuspid valve stenosis. There is mild tricuspid valve regurgitation. Mild pulmonary hypertension, estimated pulmonary arterial systolic pressure is 43 mmHg. Pericardium/Pleural The pericardium appears normal. There is trivial pericardial effusion. Inferior Vena Cava Normal inferior vena cava with <50% collapse upon inspiration consistent with elevated right atrial pressure, 10 mmHg. Aorta The aortic root size at the sinus of Valsalva is normal. The prox ascending aorta size is normal. Left Ventricular Outflow Tract Name Value Normal LVOT 2D LVOT Diameter 2.0 cm LVO
[2022-06-22] MEDS: methylPREDNISolone SOD SUCC 125 MG VIAL 60 MG IV PUSH ×3 (00:53→12:36)
[2022-06-22] MEDS: ALBUTEROL SULFATE NEB 2.5 MG/3 ML INH INHALATION ×6 (00:58→21:20)
[2022-06-22] MEDS: IPRATROPIUM BR 0.02% INH SOLN 0.5 MG/2.5 ML VIAL INHALATION ×6 (00:58→21:20)
[2022-06-22 07:16] LABS: Hematocrit 26.2 % (37.0-47.0); Hemoglobin 8.3 g/dL (12.0-15.0); Mean Corpuscular HGB Conc 31.7 g/dl (32-36); Mean Corpuscular Hemoglobin 27.2 pg (26-34); Mean Corpuscular Volume 85.9 fl (80-100); Mean Platelet Volume 10.6 fl (7.4-10.4); Platelet Count Result 268 k/mm3 (150-375); Red Blood Count 3.05 M/mm3 (4.2-5.4); Red Cell Distribution Width 16.1 % (11.5-14.5); White Blood Count 17.3 K/mm3 (4.5-10.0)
[2022-06-22 07:40] LABS: Anion Gap 11 mmol/L (8-16); Blood Urea Nitrogen 32 mg/dL (7-17); Calcium 9.6 mg/dL (8.4-10.2); Carbon Dioxide 20 mmol/L (22-30); Chloride 109 mmol/L (98-107); Estimated CRCL calculation 25 ml/min; Estimated Glomerular Filt Rate 27; Glucose 153 mg/dL (65-110); Magnesium 1.9 mg/dL (1.6-2.3); Potassium 3.6 mmol/L (3.4-5.0); Sodium 140 mmol/L (137-145)
--- NOTE | 2022-06-22 08:34 | PM.PNCARD ---
Progress Note: A&P Assessment and Plan (1) CHF (congestive heart failure), NYHA class II: Code(s): I50.9 - Heart failure, unspecified Status: Acute (2) Elevated troponin: Code(s): R77.8 - Other specified abnormalities of plasma proteins Status: Acute Plan Elevated troponins and mild pulmonary edema in the setting of hypertensive emergency with SBP in the 220s on presentation is without ischemic changes. This does not appear to be a picture of ACS. She also does have reproducible chest wall tenderness upon palpation. BP improving but not yet at goal. Continue BP control TTE showed normal LVSF, EF 65 - 70&, grade II diastolic dysfunction. No significant valvular abnormalities. Cardiology will sign off please do not hesitate to contact us with any questions. Subjective Date/time seen: 06/22/22 08:34 Cardiology follow up for chest pain Not having any chest pain today. Feels better overall with less wheezing. does complain of productive cough. Review of Systems Review of Systems: All systems reviewed & are unremarkable except as noted in HPI and below Exam Const: General: comfortable and no acute distress HENMT: Mouth: Yes moist mucous membranes Eyes: General: appearance normal, both eyes and all related structures Sclera: sclerae normal Neck: Neck: supple Resp: Effort & Inspection: normal respiratory effort Auscultation: clear to auscultation bilaterally Cardio: Rate: regular rate Rhythm: regular rhythm Heart sounds: no murmurs Skin: General skin exam: normal color Neuro: Speech: normal speech Extrem: General: normal to inspection Psych: Mental Status: mental status grossly normal Affect: normal affect Objective Data Vital Signs Vital Signs: Vital Signs - 24 hr 06/21/22 08:39 06/21/22 09:20 06/21/22 09:20 Temperature Pulse Rate 84 73 Respiratory Rate 16 24 H 24 H Blood Pressure 206/67 H Pulse Oximetry 94 94 Oxygen Delivery Room Air Fraction of Inspired Oxygen 06/21/22 09:21 06/21/22 11:36 06/21/22 12:46 Temperature Pulse Rate 78 80 Respiratory Rate Blood Pressure 188/63 H Pulse Oximetry Oxygen Delivery Fraction of Inspired Oxygen 06/21/22 12:48 06/21/22 13:04 06/21/22 14:00 Temperature 36.7 C Pulse Rate 73 76 88 Respiratory Rate 16 16 20 Blood Pressure 182/64 H Pulse Oximetry 94 Oxygen Delivery Fraction of Inspired Oxygen 06/21/22 15:50 06/21/22 16:03 06/21/22 19:59 Temperature Pulse Rate 80 76 76 Respiratory Rate 16 16 18 Blood Pressure Pulse Oximetry 96 Oxygen Delivery Room Air Fraction of Inspired Oxygen 06/21/22 19:59 06/21/22 21:39 06/22/22 00:59 Temperature 36.9 C Pulse Rate 76 91 79 Respiratory Rate 18 16 18 Blood Pressure 179/80 H Pulse Oximetry 93 Oxygen Delivery Fraction of Inspired Oxygen 06/22/22 01:18 06/22/22 04:04 06/22/22 04:12 Temperature Pulse Rate 80 78 81 Respiratory Rate 18 18 18 Blood Pressure Pulse Oximetry Oxygen Delivery Fraction of Inspired Oxygen 06/22/22 06:06 06/22/22 07:50 06/22/22 07:55 Temperature 36.3 C L Pulse Rate 92 79 81 Respiratory Rate 16 18 Blood Pressure 178/66 H Pulse Oximetry 92 99 Oxygen Delivery Room Air Fraction of Inspired Oxygen 06/22/22 08:04 Temperature Pulse Rate 82 Respiratory Rate 18 Blood Pressure Pulse Oximetry Oxygen Delivery Fraction of Inspired Oxygen Intake/Output Intake/Output: Intake & Output 06/19/22 06/20/22 06/21/22 06/22/22 23:59 23:59 23:59 23:59 Intake Total 1000 620 200 Output Total 700 Balance 1000 -80 200 Meds/Results Medications: Active Medications Generic Name Dose Route Start Last Admin Trade Name Freq PRN Reason Stop Dose Admin Albuterol 2.5 mg 06/21/22 04:00 06/22/22 07:53 Albuterol Sulfate Neb 2.5 Mg/3 Ml Inh INHALATION 2.5 mg Q4HRT PUNEET Administration Amlodipine Besylate 10 mg 11
[2022-06-22] MEDS: NEBIVOLOL HCL 5 MG TABLET 40 MG PO (08:49)
[2022-06-22] MEDS: FUROSEMIDE INJ 40 MG/4 ML VIAL IV PUSH (08:49)
[2022-06-22] MEDS: hydrALAZINE 10 MG TABLET PO ×4 (08:50→20:13)
[2022-06-22] MEDS: LOSARTAN POTASSIUM 100 MG TABLET PO (08:50)
[2022-06-22] MEDS: amLODIPine BESYLATE 5 MG TABLET 10 MG PO (08:50)
[2022-06-22] MEDS: CHOLECALCIFEROL 1,000 UNITS TABLET 2000 UNITS PO (08:50)
[2022-06-22] MEDS: CLOPIDOGREL BISULFATE 75 MG TABLET PO (08:50)
[2022-06-22] MEDS: ASPIRIN 81 MG CHEWABLE TABLET PO (08:50)
[2022-06-22] MEDS: ATORVASTATIN 20 MG TABLET PO (08:51)
--- NOTE | 2022-06-22 13:28 | P.CDI_ITS ---
CDI Query Clarified Diagnosis Clarified Diagnosis: CHF noted on problem list. BNP elevated on 06/20/22 Patient with complaints of dyspnea. Patient receiving IV Lasix. Please specify type and acuity of heart failure if known. * Acute * Chronic * Acute on Chronic * Unknown * Systolic * Diastolic * Combined Systolic and Diastolic * Unknown <Allie Flores RN - Last Filed: 06/22/22 13:32> Provider Comments Patient had acute on chronic diastolic congestive heart failure with grade 3 diastolic dysfunction <Edy Ramsey MD - Last Filed: 07/13/22 15:26>
--- NOTE | 2022-06-22 16:03 | PM.IMPN ---
Progress Note: A&P Assessment and Plan (1) CHF (congestive heart failure), NYHA class II: Code(s): I50.9 - Heart failure, unspecified Status: Acute Assessment and Plan: admit to IMU aggressive diuresis echocardiogram in a.m. cardiology consult daily intake and output daily weights fluid restriction to 1500 cc daily 06/22/2022 interval history: 77-year-old female presented emergency department with shortness of breath upon arrival her systolic blood pressure was 220 and has elevated tropes, patient was seen by tower switch operator does not suspect acute coronary syndrome, recommended blood pressure control, currently patient is on amlodipine 10 mg q.day, losartan 100 mg q.day and Bystolic 20 mg q.day tower switch operator up the dose to 40 mg q.day, upon arrival patient BNP was 8000 and patient is being diuresed with IV Lasix, cardiac echo showed preserved LV function with ejection fraction of 65% and grade 3 diastolic dysfunction, patient also has history COPD and contributing shortness of breath patient is being treated with methylprednisone and bronchodilator, will stop the methylprednisone and tapered to prednisone as patient's symptoms are improving will continue to monitor will have PT OT evaluate the patient. (2) Hypertension: Qualifiers: Hypertension type: primary hypertension Qualified Code(s): I10 - Essential (primary) hypertension Code(s): I10 - Essential (primary) hypertension Status: Acute Assessment and Plan: uncontrolled resume home meds cultures normalization of blood pressure hydralazine IV p.r.n. for systolic above 190 continue to monitor (3) COPD exacerbation: Code(s): J44.1 - Chronic obstructive pulmonary disease with (acute) exacerbation Status: Acute Assessment and Plan: patient with a change in sputum quality started on antibiotics breathing treatments systemic steroids (4) CKD (chronic kidney disease) stage 4, GFR 15-29 ml/min: Code(s): N18.4 - Chronic kidney disease, stage 4 (severe) Status: Acute Assessment and Plan: BUN and creatinine at patient's baseline continue to monitor daily BMP Subjective Date/time seen: 06/22/22 16:03 06/22/2022 interval history: 77-year-old female presented emergency department with shortness of breath upon arrival her systolic blood pressure was 220 and has elevated tropes, patient was seen by tower switch operator does not suspect acute coronary syndrome, recommended blood pressure control, currently patient is on amlodipine 10 mg q.day, losartan 100 mg q.day and Bystolic 20 mg q.day tower switch operator up the dose to 40 mg q.day, upon arrival patient BNP was 8000 and patient is being diuresed with IV Lasix, cardiac echo showed preserved LV function with ejection fraction of 65% and grade 3 diastolic dysfunction, patient also has history COPD and contributing shortness of breath patient is being treated with methylprednisone and bronchodilator, will stop the methylprednisone and tapered to prednisone as patient's symptoms are improving will continue to monitor will have PT OT evaluate the patient. Exam Narrative: Patient is comfortable, NAD HEENT: eyes are clear and none icteric LUNGS: normal respiratory effort ABD: not distended Lower extremities: no edema SKIN: nonjaundiced Neuro: grossly intact. Objective Data Vital Signs Vital Signs: Vital Signs - 24 hr 06/21/22 19:59 06/21/22 19:59 06/21/22 21:39 Temperature 98.5 F Pulse Rate 76 76 91 Respiratory Rate 18 18 16 Blood Pressure 179/80 H Pulse Oximetry 96 93 Oxygen Delivery Room Air Fraction of Inspired Oxygen 06/22/22 00:59 06/22/22 01:18 06/22/22 04:04 Temperature Pulse Rate 79 80 78 Respiratory Rate 18 18 18 Blood Pressure Pulse Oximetry Oxygen Delivery Fraction of Inspired Oxygen 06/22/22 04:12 06/22/22 06:06 06/22/22 07:50 Temperature 97.4 F L Pulse Rate 81 92 79 Respiratory
[2022-06-22] MEDS: cefTRIAXone 2 GM in SODIUM CHLORIDE 0.9% IV 100 ML 200 ML IVPB (20:15)
--- NOTE | 2022-06-23 01:53 | PCRCNOTE ---
Window of time for administration has passed. See next scheduled administration.
[2022-06-23 04:46] VITALS: PULSE 77; RESP 18
[2022-06-23] MEDS: ALBUTEROL SULFATE NEB 2.5 MG/3 ML INH INHALATION ×2 (04:46→11:37)
[2022-06-23] MEDS: IPRATROPIUM BR 0.02% INH SOLN 0.5 MG/2.5 ML VIAL INHALATION ×2 (04:46→11:37)
[2022-06-23 04:56] VITALS: PULSE 79; RESP 18
[2022-06-23 06:00] VITALS: BP 160/69; PULSE 77; RESP 16; TEMP 36.9; O2SAT 97
[2022-06-23 06:11] LABS: Hematocrit 25.8 % (37.0-47.0); Mean Corpuscular Hemoglobin 26.8 pg (26-34); Mean Corpuscular Volume 86.6 fl (80-100); Mean Platelet Volume 10.4 fl (7.4-10.4); Platelet Count Result 275 k/mm3 (150-375); Red Blood Count 2.98 M/mm3 (4.2-5.4); Red Cell Distribution Width 16.2 % (11.5-14.5); White Blood Count 20.3 K/mm3 (4.5-10.0)
[2022-06-23 06:22] LABS: Anion Gap 9 mmol/L (8-16); Blood Urea Nitrogen 47 mg/dL (7-17); Calcium 9.4 mg/dL (8.4-10.2); Carbon Dioxide 22 mmol/L (22-30); Chloride 109 mmol/L (98-107); Estimated CRCL calculation 22 ml/min; Estimated Glomerular Filt Rate 23; Glucose 131 mg/dL (65-110); Potassium 3.8 mmol/L (3.4-5.0); Sodium 140 mmol/L (137-145)
[2022-06-23] MEDS: ATORVASTATIN 20 MG TABLET PO (08:45)
[2022-06-23] MEDS: FUROSEMIDE INJ 40 MG/4 ML VIAL IV PUSH (08:45)
[2022-06-23] MEDS: hydrALAZINE 10 MG TABLET PO (08:45)
[2022-06-23] MEDS: CHOLECALCIFEROL 1,000 UNITS TABLET 2000 UNITS PO (08:45)
[2022-06-23] MEDS: predniSONE 20 MG TABLET 60 MG PO (08:45)
[2022-06-23] MEDS: NEBIVOLOL HCL 5 MG TABLET 40 MG PO (08:46)
[2022-06-23] MEDS: amLODIPine BESYLATE 5 MG TABLET 10 MG PO (08:46)
[2022-06-23] MEDS: CLOPIDOGREL BISULFATE 75 MG TABLET PO (08:46)
[2022-06-23] MEDS: ASPIRIN 81 MG CHEWABLE TABLET PO (08:46)
[2022-06-23] MEDS: LOSARTAN POTASSIUM 100 MG TABLET PO (09:02)
--- NOTE | 2022-06-23 11:00 | PM.DS ---
DS: Admitting Diagnosis Discharge Date 06/23/2022 Admitting Diagnosis short of breath DS: Discharge Diagnosis Discharge Diagnosis (1) CHF (congestive heart failure), NYHA class II: Code(s): I50.9 - Heart failure, unspecified Status: Acute Assessment and Plan: admit to IMU aggressive diuresis echocardiogram in a.m. cardiology consult daily intake and output daily weights fluid restriction to 1500 cc daily 06/22/2022 interval history: 77-year-old female presented emergency department with shortness of breath upon arrival her systolic blood pressure was 220 and has elevated tropes, patient was seen by construction foreman does not suspect acute coronary syndrome, recommended blood pressure control, currently patient is on amlodipine 10 mg q.day, losartan 100 mg q.day and Bystolic 20 mg q.day construction foreman up the dose to 40 mg q.day, upon arrival patient BNP was 8000 and patient is being diuresed with IV Lasix, cardiac echo showed preserved LV function with ejection fraction of 65% and grade 3 diastolic dysfunction, patient also has history COPD and contributing shortness of breath patient is being treated with methylprednisone and bronchodilator, will stop the methylprednisone and tapered to prednisone as patient's symptoms are improving will continue to monitor will have PT OT evaluate the patient. (2) Hypertension: Qualifiers: Hypertension type: primary hypertension Qualified Code(s): I10 - Essential (primary) hypertension Code(s): I10 - Essential (primary) hypertension Status: Acute Assessment and Plan: uncontrolled resume home meds cultures normalization of blood pressure hydralazine IV p.r.n. for systolic above 190 continue to monitor (3) COPD exacerbation: Code(s): J44.1 - Chronic obstructive pulmonary disease with (acute) exacerbation Status: Acute Assessment and Plan: patient with a change in sputum quality started on antibiotics breathing treatments systemic steroids (4) CKD (chronic kidney disease) stage 4, GFR 15-29 ml/min: Code(s): N18.4 - Chronic kidney disease, stage 4 (severe) Status: Acute Assessment and Plan: BUN and creatinine at patient's baseline continue to monitor daily BMP DS: Summary Hospital Course Reason for hospitalization: ?shortness of breath Narrative: ?this is a 77-year-old female with past medical history significant for COPD / emphysema, former smoker, hypertension, chronic kidney disease, dyslipidemia, peripheral arterial disease, coronary artery disease. patient presents to the emergency room due to shortness of breath, cough productive of sputum which is yellowish which is different to her usual patient used to be a smoker but quit a number of years ago,? patient denies any fevers, rigors, chills, nausea, vomiting, abdominal pain, diarrhea denies chest pain, palpitations, no leg swelling, no PND, no orthopnea, has had progressively worsening shortness of breath for the last 3 days with productive cough of sputum mentioned above.? Preliminary workup was significant for presentation to emergency room with a systolic blood pressure in the 200s, brain natriuretic peptide of 8000, creatinine of 1.5, patient tested negative for COVID-19, influenza A, influenza B, and RSV,? a chest x-ray showed interstitial edema.? Patient is been admitted for further evaluation management and treatment. Hospital Course: 7-year-old female presented emergency department with shortness of breath upon arrival her systolic blood pressure was 220 and has elevated tropes, patient was seen by construction foreman does not suspect acute coronary syndrome, recommended blood pressure control,? currently patient is on amlodipine 10 mg q.day, losartan 100 mg q.day and Bystolic 20 mg q.day construction foreman up the dose to 40 mg q.day, upon arrival patient BNP was 8000 and patient is being diuresed with IV Lasix,? cardiac echo showed preserved LV funct
[2022-06-23 11:37] VITALS: PULSE 64; RESP 18
[2022-06-23 11:40] VITALS: PULSE 64; RESP 18; O2SAT 97
[2022-06-23 11:47] VITALS: PULSE 70; RESP 18
== END 2022-06-23 12:50 | disposition home or self-care (01) | DRG 291 ==
LOC: ANHED 20:42 → ANHIMU 06-21 00:16 → ANH3MEDSUR 06-21 12:44
PROVIDERS: Admitting Provider Internal Medicine; Emergency Provider Emergency Medicine; PCP Emergency Medicine; Visit Provider Family Medicine
DX: I13.0 Hypertensive heart and chronic kidney disease with heart failure and stage 1 through stage 4 chronic kidney disease, or unspecified chronic kidney disease (principal); I50.33 Acute on chronic diastolic (congestive) heart failure; I16.1 Hypertensive emergency; J44.1 Chronic obstructive pulmonary disease with (acute) exacerbation; N18.4 Chronic kidney disease, stage 4 (severe); Z20.822 Contact with and (suspected) exposure to COVID-19; E78.5 Hyperlipidemia, unspecified; I73.9 Peripheral vascular disease, unspecified; Z95.820 Peripheral vascular angioplasty status with implants and grafts; Z87.891 Personal history of nicotine dependence
CPT/HCPCS: 36415; 71045; 80048; 80053; 83735; 83880; 84484; 85025; 85027; 87637; 93005; 93306; 94640; 96361; 96374; 99285; A9270; J0360; J0456; J0696; J1940; J2930; J7030; J7512

== ENCOUNTER 2022-07-30 21:21 | Observation (INO) | payer MEDICARE, SELFPAY ==
[2022-07-30 21:26] VITALS: BP 210/108; PULSE 64; RESP 16; TEMP 36.7; O2SAT 99
[2022-07-30 23:38] LABS: Basophils Percent Auto 0.5 % (0.2-1.2); Eosinophils Absolute Auto 0.2 K/mm3 (0-0.3); Eosinophils Percent Auto 2.1 % (0-4.4); Hematocrit 34.7 % (37.0-47.0); Hemoglobin 10.6 g/dL (12.0-15.0); Immature Granulocyte Absolute 0.02 K/mm3 (0.00-0.031); Immature Granulocyte Percent A 0.3 % (0-0.5); Lymphocytes Absolute Auto 1.41 K/mm3 (0.9-3.2); Lymphocytes Percent Auto 19.3 % (18.3-44.2); Mean Corpuscular HGB Conc 30.5 g/dl (32-36); Mean Corpuscular Hemoglobin 27.2 pg (26-34); Mean Platelet Volume 10.3 fl (7.4-10.4); Monocytes Absolute Auto 0.8 K/mm3 (0.1-0.6); Neutrophils Absolute Auto 4.9 K/mm3 (1.3-6.7); Neutrophils Percent Auto 66.8 % (45.5-73.1); Platelet Count Result 248 k/mm3 (150-375); Red Cell Distribution Width 15.9 % (11.5-14.5); White Blood Count 7.3 K/mm3 (4.5-10.0)
[2022-07-31] VITALS (9 sets, daily range): BP systolic 161–241; BP diastolic 59–87; PULSE 53–66; RESP 12–20; TEMP 36.5–36.6; O2SAT 97–100; BMI 25.8
[2022-07-31 00:07] LABS: Anion Gap 5 mmol/L (8-16); Blood Urea Nitrogen 39 mg/dL (7-17); Calcium 9.7 mg/dL (8.4-10.2); Carbon Dioxide 25 mmol/L (22-30); Chloride 107 mmol/L (98-107); Estimated CRCL calculation 20 ml/min; Estimated Glomerular Filt Rate 24; Glucose 98 mg/dL (65-110); Potassium 4.5 mmol/L (3.4-5.0); Sodium 137 mmol/L (137-145)
[2022-07-31 00:15] LABS: Troponin I 0.017 ng/mL (0.000-0.034)
--- NOTE | 2022-07-31 01:04 | ED.RECABL ---
HPI - Recheck/Abnormal Lab/Rx General Chief Complaint: Recheck/Abnormal Lab/Rx Stated Complaint: blood pressure 220/110 Time Seen by Provider: 07/31/22 00:51 History of Present Illness HPI narrative: This is a 77-year-old female with past medical history of chronic kidney disease, peripheral vascular disease and hypertension, presenting the emergency department with elevated blood pressure. Patient states she took her blood pressure medications as normal. She was checking blood pressures at home which are elevated. She had it rechecked at a fire department and was 220/110. She denies headache, change/loss of vision, chest pain, difficulty breathing or other symptoms. Related Data Home Medications Medication Instructions Recorded Confirmed aspirin 81 mg chewable tablet 81 mg PO DAILY 06/21/22 06/21/22 atorvastatin 20 mg tablet 20 mg PO DAILY 06/21/22 06/21/22 cholecalciferol (vitamin D3) 50 50 mcg PO DAILY 06/21/22 06/21/22 mcg (2,000 unit) tablet (Vitamin D3) Allergies Allergy/AdvReac Type Severity Reaction Status Date / Time No Known Allergies Allergy Verified 07/13/22 13:58 Review of Systems Review of Systems: CONSTITUTIONAL: Denies fever, chills, or sweats. EYES: Denies visual changes, redness, or discharge. ENT: Denies rhinorrhea, congestion, sore throat, or otalgia. CARDIOVASCULAR: Denies chest pain, palpitations, or edema. RESPIRATORY: Denies cough or dyspnea. GASTROINTESTINAL: Denies abdominal pain, nausea, vomiting, or diarrhea. GENITOURINARY: Denies dysuria or hematuria. SKIN: Denies rash or itching. MUSCULOSKELETAL: Denies back pain, joint pain, or myalgia. NEUROLOGIC: Denies headache, numbness, dizziness, or weakness. PSYCHIATRIC: Denies anxiety or depression. [facility] Past Medical History Medical History CKD (chronic kidney disease) stage 4, GFR 15-29 ml/min HLD (hyperlipidemia) Hypertension Kidney disease Wrist fracture, left Surgical History Surgical History History of intravascular stent placement History of surgery Right leg artery surgery Family History Family History Father Cerebrovascular accident, Onset Age: 49 History of blood clots Kidney disorder Hypertension Mother Asthma Diabetes mellitus Sibling Congestive heart failure Social History Social History Smoking packs per day: 2 Smoking cigarettes per day: 40.0 Years smoked: 25 Smoking pack-years: 50.00 Smoking status: Former smoker Tobacco type: cigarettes Second hand tobacco smoke exposure: No Smoking end date: 07/26/13 Alcohol intake: current Drinks per week: 4 Substance use: former Substance use type: marijuana Lack of Transportation: No Lack of Food: Never True Current Housing: I Have Housing Concerned About Future Housing: No Difficulty Paying Gas/Electric Bills: No Difficulty Paying for Meds: No Currently Unemployed: No Education: High School Diploma/GED Difficulty w/ Childcare or Family Care: No Gender identity (if verbalized by the patient): Female Spiritual care concerns: No Exam Narrative: GENERAL: Well-developed, well-nourished, and in no acute distress. HEAD: Normocephalic, atraumatic. EYES: PERRLA and EOMI. ENT: Nares clear, no rhinorrhea or epistaxis. Mucous membranes moist. Oropharynx without tonsillar hypertrophy exudate or other lesions. NECK: Supple. No adenopathy or masses. No carotid bruits or JVD CHEST: Clear to auscultation. No respiratory distress. No wheezes rales or rhonchi HEART: Regular rate and rhythm. No murmur heard. Normal peripheral pulses. ABDOMEN: Soft, nontender, nondistended, normal active bowel sounds. EXTREMITIES: Normal range of motion. No edema. SKIN: Warm, dry, no rash. NEURO: No
[2022-07-31] MEDS: amLODIPine BESYLATE 5 MG TABLET PO ×2 (01:11→08:43)
--- NOTE | 2022-07-31 01:22 | ECG_ITS ---
Measurements Intervals [place] Rate: 52 P: 52 MT: 161 QRS: -36 QRSD: 84 T: 79 QT: 449 QTc: 419 Interpretive Statements SINUS BRADYCARDIA LEFT AXIS DEVIATION LEFT VENTRICULAR HYPERTROPHY AND ST-T CHANGE BORDERLINE R WAVE PROGRESSION, ANTERIOR LEADS BASELINE ARTIFACT- I, II, III, AVR, AVL, AVF BORDERLINE ECG COMPARED TO ECG 06/21/2022 09:42:45 SINUS BRADYCARDIA NOW PRESENT LEFT-AXIS DEVIATION NOW PRESENT LEFT VENTRICULAR HYPERTROPHY NOW PRESENT Electronically Signed On 07-31-2022 8:06:57 MOVIE THEATER MANAGER by Richard Padilla D.O.
[2022-07-31] MEDS: hydrALAZINE HCL 20 MG/ML VIAL 10 MG IV PUSH ×4 (01:24→14:19)
[2022-07-31 02:53] LABS: Troponin I 0.031 ng/mL (0.000-0.034)
[2022-07-31] MEDS: hydrALAZINE HCL 50 MG TABLET 100 MG PO (03:50)
--- NOTE | 2022-07-31 06:11 | ECG_ITS ---
Measurements Intervals [place] Rate: 56 P: 30 ME: 151 QRS: -33 QRSD: 80 T: 76 QT: 447 QTc: 435 Interpretive Statements SINUS BRADYCARDIA WITH MARKED SINUS ARRHYTHMIA LEFT AXIS DEVIATION LEFT VENTRICULAR HYPERTROPHY WITH ST-T CHANGE BORDERLINE R WAVE PROGRESSION, ANTERIOR LEADS BORDERLINE ECG COMPARED TO ECG 07/31/2022 01:22:29 SINUS ARRHYTHMIA NOW PRESENT Electronically Signed On 07-31-2022 9:38:17 VACATION GUIDE by Richard Padilla D.O.
[2022-07-31 06:12] LABS: Troponin I 0.043 ng/mL (0.000-0.034)
[2022-07-31 08:16] LABS: Influenza A QL RT-PCR Negative (Negative); Influenza B QL RT-PCR Negative (Negative); SARS-CoV-2 RNA PCR Negative
--- NOTE | 2022-07-31 08:21 | PC.NURSE ---
heart healthy breakfast tray ordered
[2022-07-31] MEDS: ASPIRIN 81 MG CHEWABLE TABLET (08:43)
--- NOTE | 2022-07-31 12:45 | PM.IMHP ---
H&P: HPI History of Present Illness Date/Time: 07/31/22 12:45 Chief Complaint: Elevated blood pressure Narrative: This is a 77-year-old female patient who has a history of chronic kidney disease, peripheral vascular disease with stents and hypertension. The patient tells me that her blood pressure is always high. Patient takes her blood pressure medication Fedder prescribed on a daily basis. The patient stated she checked her blood pressures last night and they were elevated she had recheck to the fire department and her blood pressure was 220/110. She denied any headaches or dizziness no visual changes. No chest pain or difficulty breathing. Her H&H is 10.6 and 34.7 which is her baseline. Her creatinine is 2 which is her baseline as well. Her initial troponins were nonreactive. The last 1 was 0.043. The patient denies any chest pain. She was negative for influenza A/B and COVID. Patient's EKG was read as sinus bradycardia with marked sinus arrhythmia. Chest x-ray was read as interstitial pulmonary edema with bibasilar atelectasis. The patient was given hydralazine 5 times. She was given Norvasc 2 times and an aspirin as well. The patient is being admitted to observation status on the date of service of 07/31/2022. Review of Systems Review of Systems: See HPI All systems reviewed & are unremarkable except as noted in HPI and below Constitutional: Constitutional: Reports as per HPI and Reports no additional constitutional complaints Eyes: Eyes: Reports as per HPI and Reports no additional eye complaints ENT: Reports system reviewed and no additional complaints, except as documented and Reports Normal hearing present Cardiovascular: Cardiovascular: Reports no additional cardiovascular complaints Respiratory: Respiratory: Reports no additional respiratory complaints and Reports no additional respiratory complaints Gastrointestinal: Gastrointestinal: Reports as per HPI and Reports no additional gastrointestinal complaints Musculoskeletal: Musculoskeletal: Reports no additional musculoskeletal complaints Integumentary/Breasts: Skin/Breast: Reports system reviewed and no additional complaints, except as docu and Reports as per HPI Neurologic: Reports system reviewed and no additional complaints, except as documented, Reports as per HPI and Reports Normal hearing present Psychiatric: Psychiatric: Reports no additional psychiatric complaints and Reports as per HPI Endocrine: Endocrine: Reports no additional endocrine complaints Hematologic/Lymphatic: Hematologic/Lymphatic: Reports no additional hematologic/lymphatic complaints Allergic/Immunologic: Allergic/Immunologic: Reports no additional allergic/immunologic complaints PMFSH Past Medical History Medical History (Updated 07/31/22 @ 13:59 by Rohini Hart NP) Anxiety Breast cancer screening by mammogram CHF (congestive heart failure), NYHA class II Chronic GERD CKD (chronic kidney disease) stage 4, GFR 15-29 ml/min Close exposure to COVID-19 virus HLD (hyperlipidemia) HLD (hyperlipidemia) Hypertension Kidney disease Peripheral vascular disease Wrist fracture, left Wrist pain Wrist pain Surgical History Surgical History H/O cataract extraction History of intravascular stent placement History of surgery Right leg artery surgery Family History Family History Father Cerebrovascular accident, Onset Age: 49 History of blood clots Kidney disorder Hypertension Mother Asthma Diabetes mellitus Sibling Congestive heart failure Social History Social History (Updated 07/31/22 @ 13:45 by Rohini Hart NP) Social History: She lives with her son and she is . 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 Sh
[2022-07-31 14:08] LABS: Troponin I 0.018 ng/mL (0.000-0.034)
--- NOTE | 2022-07-31 17:14 | PC.NURSE ---
heart healthy dinner diet ordered
--- NOTE | 2022-07-31 17:26 | ECG_ITS ---
Measurements Intervals [place] Rate: 56 P: 15 MA: 168 QRS: -33 QRSD: 81 T: 84 QT: 443 QTc: 428 Interpretive Statements SINUS BRADYCARDIA WITH SINUS ARRHYTHMIA LEFT AXIS DEVIATION BORDERLINE R WAVE PROGRESSION, ANTERIOR LEADS BORDERLINE ST-T WAVE ABNORMALITY- HIGH LATERAL LEADS BORDERLINE ECG COMPARED TO ECG 07/31/2022 09:19:59 NO SIGNIFICANT CHANGES Electronically Signed On 08-01-2022 9:42:28 MAINTENANCE PORTER by Richard Padilla D.O.
[2022-07-31] MEDS: hydrALAZINE 10 MG TABLET PO ×2 (17:50→22:43)
--- NOTE | 2022-07-31 19:06 | PM.CNCAR ---
Assessment and Plan Assessment and plan (1) Hypertension, uncontrolled: Code(s): I10 - Essential (primary) hypertension Status: Acute Assessment and Plan: Her blood pressure is improving on a regimen of losartan 100 mg daily, amlodipine 10 mg daily, Bystolic 40 mg daily, clonidine 0.1 mg q.12 hours, and 10 mg of hydralazine Q 6 hours. Unsure if she has ever has workup for pheochromocytoma, we can work her up for this Due to her resistant hypertension. Will order 24 hour urine metanephrine and catecholamines and plasma metanephrines if available. We will follow-up on these results. Cardiology will follow along on an as-needed basis. Please do not hesitate to contact us with any questions. Thank you. History of Present Illness History of Present Illness Consult date/time: 07/31/22 19:06 Reason For Visit: Hypertensive Emergency Narrative: This is a patient with longstanding [id number] hypertension who presented to the emergency department after attempting to take her blood pressure at home but the reading was too high for the machine to register. She states that her primary care doctor had recently made some adjustments to her antihypertensive regimen. When she arrived in the emergency department here her systolic blood pressure was 210 mmHg. Review of Systems Review of Systems: All systems reviewed & are unremarkable except as noted in HPI and below PMFSH Past Medical History Medical History (Updated 07/31/22 @ 13:59 by Rohini Hart NP) Anxiety Breast cancer screening by mammogram CHF (congestive heart failure), NYHA class II Chronic GERD CKD (chronic kidney disease) stage 4, GFR 15-29 ml/min Close exposure to COVID-19 virus HLD (hyperlipidemia) HLD (hyperlipidemia) Hypertension Kidney disease Peripheral vascular disease Wrist fracture, left Wrist pain Wrist pain Surgical History Surgical History H/O cataract extraction History of intravascular stent placement History of surgery Right leg artery surgery Family History Family History Father Cerebrovascular accident, Onset Age: 49 History of blood clots Kidney disorder Hypertension Mother Asthma Diabetes mellitus Sibling Congestive heart failure Social History Social History (Updated 07/31/22 @ 13:45 by Rohini Hart NP) Social History: She lives with her son and she is . 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 She has no power vice president education. Code status full code Smoking packs per day: 2 Smoking cigarettes per day: 40.0 Years smoked: 25 Smoking pack-years: 50.00 Smoking status: Former smoker Tobacco type: cigarettes Second hand tobacco smoke exposure: No Smoking end date: 07/26/13 Alcohol intake: current Drinks per week: 4 Substance use: former Substance use type: marijuana Lack of Transportation: No Lack of Food: Never True Current Housing: I Have Housing Concerned About Future Housing: No Difficulty Paying Gas/Electric Bills: No Difficulty Paying for Meds: No Currently Unemployed: No Education: High School Diploma/GED Difficulty w/ Childcare or Family Care: No Gender identity (if verbalized by the patient): Female Spiritual care concerns: No Meds Home Medications and Allergies Home Medications Medication Instructions Recorded Confirmed Type amlodipine 10 mg tablet (Norvasc) 10 mg PO DAILY #90 tabs 10/21/21 06/21/22 Rx clopidogrel 75 mg tablet 75 mg PO DAILY #90 tabs 05/19/22 06/21/22 Rx losartan 100 mg tablet 100 mg PO DAILY #90 tabs 05/19/22 06/21/22 Rx aspirin 81 mg chewable tablet 81 mg PO DAILY 06/21/22 06/21/22 History atorvastatin 20 mg tablet 20 mg PO DAILY 06/21/22 06/21/22 History
--- NOTE | 2022-07-31 19:32 | PC.NURSE ---
report received from Steven HELMS including history and physical and plan of care
[2022-07-31] MEDS: cloNIDine HCL 0.1 MG TABLET PO (22:14)
--- NOTE | 2022-07-31 22:25 | ADMGEN ---
This patient, Veronica Bowles, was admitted to Medical Room 249-01. Patient/family oriented to hospital policies and general routines including ID bracelet, bed and alarms, visiting hours, pain management, procedures, bathroom and other care routines, personal items, smoking policy, room service/diet, and visiting hours. Information on how to activate the Rapid Response Team has been discussed. Patient/Family are encouraged to report perceived risks to care and to ask questions if they do not understand what they are told or what they should do.
[2022-08-01] VITALS (7 sets, daily range): BP systolic 128–177; BP diastolic 46–76; PULSE 48–56; RESP 18; TEMP 36.6; O2SAT 97–98
[2022-08-01 06:02] LABS: Basophils Percent Auto 0.3 % (0.2-1.2); Eosinophils Absolute Auto 0.2 K/mm3 (0-0.3); Eosinophils Percent Auto 3.1 % (0-4.4); Hemoglobin 9.9 g/dL (12.0-15.0); Immature Granulocyte Absolute 0.03 K/mm3 (0.00-0.031); Immature Granulocyte Percent A 0.5 % (0-0.5); Lymphocytes Absolute Auto 1.64 K/mm3 (0.9-3.2); Lymphocytes Percent Auto 28.5 % (18.3-44.2); Mean Corpuscular HGB Conc 30.9 g/dl (32-36); Mean Corpuscular Hemoglobin 27.3 pg (26-34); Mean Corpuscular Volume 88.4 fl (80-100); Mean Platelet Volume 10.6 fl (7.4-10.4); Monocytes Absolute Auto 0.8 K/mm3 (0.1-0.6); Monocytes Percent Auto 14.6 % (2.6-8.5); Platelet Count Result 224 k/mm3 (150-375); Red Blood Count 3.62 M/mm3 (4.2-5.4); Red Cell Distribution Width 16.6 % (11.5-14.5); White Blood Count 5.8 K/mm3 (4.5-10.0)
[2022-08-01 06:25] LABS: Alanine Aminotransferase 19 U/L (6-35); Albumin Level 3.4 g/dL (3.5-5.1); Alkaline Phosphatase 75 U/L (38-126); Anion Gap 2 mmol/L (8-16); Aspartate Amino Transferase 30 U/L (14-36); Bilirubin,Total 0.5 mg/dL (0.2-1.3); Blood Urea Nitrogen 25 mg/dL (7-17); Calcium 8.9 mg/dL (8.4-10.2); Carbon Dioxide 25 mmol/L (22-30); Chloride 113 mmol/L (98-107); Estimated CRCL calculation 22 ml/min; Estimated Glomerular Filt Rate 27; Glucose 86 mg/dL (65-110); Magnesium 2.2 mg/dL (1.6-2.3); Potassium 4.2 mmol/L (3.4-5.0); Sodium 140 mmol/L (137-145)
[2022-08-01] MEDS: CHOLECALCIFEROL 1,000 UNITS TABLET 2000 UNITS PO (08:58)
[2022-08-01] MEDS: amLODIPine BESYLATE 5 MG TABLET 10 MG PO (08:59)
[2022-08-01] MEDS: FLUTICASONE PROPIONATE 0.05% NA SPR 16 GM BTL (*BKC) 1 SPRAY NASAL (08:59)
[2022-08-01] MEDS: hydrALAZINE 10 MG TABLET PO ×2 (08:59→12:24)
[2022-08-01] MEDS: LOSARTAN POTASSIUM 100 MG TABLET PO (08:59)
[2022-08-01] MEDS: ATORVASTATIN 20 MG TABLET PO ×2 (08:59→09:00)
[2022-08-01] MEDS: CLOPIDOGREL BISULFATE 75 MG TABLET PO (09:00)
[2022-08-01] MEDS: cloNIDine HCL 0.1 MG TABLET PO (09:00)
[2022-08-01] MEDS: ASPIRIN 81 MG ENTERIC TABLET PO (09:00)
[2022-08-01] MEDS: FUROSEMIDE 40 MG TABLET PO (09:00)
[2022-08-01] MEDS: NEBIVOLOL HCL 5 MG TABLET 40 MG PO (09:01)
[2022-08-01 09:02] LABS: Thyroid Stimulating Hormone Reflex 0.736 uIU/mL (0.465-4.68)
--- NOTE | 2022-08-01 14:45 | PM.DS ---
DS: Admitting Diagnosis Discharge Date August 01, 2022 Admitting Diagnosis hypertensive emergency DS: Discharge Diagnosis Discharge Diagnosis (1) Hypertensive emergency: Code(s): I16.1 - Hypertensive emergency Status: Acute Assessment and Plan: -the patient stated that her blood pressure is a leads elevated and has led to chronic renal failure. -the patient has had several doses of hydralazine. She is also on clonidine which I will continue with that -continue with Lasix -continue Bystolic -continue with Norvasc -continue with losartan -continue clonidine -added routine hydralazine. (2) CHF (congestive heart failure): Code(s): I50.9 - Heart failure, unspecified Status: Acute Assessment and Plan: -continue with Bystolic, losartan and Lasix. -echo 06/22/2022. ?1. Complete two-dimensional, color flow and Doppler transthoracic echocardiogram is performed. ? 2. Strain analysis performed. ? 3. Left ventricular chamber dimension is normal. ? 4. Left ventricular systolic function is normal, estimated at 65-70%. ? 5. There is mildly increased left ventricular wall thickness. ? 6. The left ventricular diastolic function is grade II diastolic dysfunction. ? 7. Global longitudinal strain is normal at -19 %. ? 8. Left atrial chamber dimension is moderately enlarged. ? 9. There is mild mitral valve regurgitation. ? 10. There is mild tricuspid valve regurgitation. ? 11. Mild pulmonary hypertension, estimated pulmonary arterial systolic pressure is 43 mmHg. ? 12. There is mild pulmonic regurgitation. (3) Elevated troponin: Code(s): R77.8 - Other specified abnormalities of plasma proteins Status: Acute Assessment and Plan: -the patient has no complaints of chest pain. -elevated BP and CKD are likely causes (4) CKD (chronic kidney disease) stage 4, GFR 15-29 ml/min: Code(s): N18.4 - Chronic kidney disease, stage 4 (severe) Status: Acute Assessment and Plan: -the patient is her baseline. (5) Chronic GERD: Code(s): K21.9 - Gastro-esophageal reflux disease without esophagitis Status: Acute Assessment and Plan: PPI while in the hospital. (6) HLD (hyperlipidemia): Qualifiers: Hyperlipidemia type: mixed hyperlipidemia Qualified Code(s): E78.2 - Mixed hyperlipidemia Code(s): E78.5 - Hyperlipidemia, unspecified Status: Acute Assessment and Plan: -continue with atorvastatin (7) Peripheral vascular disease: Code(s): I73.9 - Peripheral vascular disease, unspecified Status: Acute Assessment and Plan: -the patient has had peripheral bypass -continue with aspirin and Plavix. DS: Summary Hospital Course Reason for hospitalization: elevated blood pressure reading of 220/110 Hospital Course: patient had asymptomatic home blood pressure reading in the 220/110 range. She had a recheck to the fire department. She him to the hospital because the elevated blood pressure. She was asymptomatic. She had no chest pain or increased shortness of breath and no mental status changes or headache or visual changes. No focal weakness or numbness. She was treated with hydralazine IV and amlodipine p.o.. Blood pressure improved to the 170s over 70s by the morning of discharge in 120s systolic on the afternoon of discharge. She was asymptomatic during hospitalization. Telemetry showed sinus rhythm with sinus arrhythmia. Hydralazine q.i.d. was added to her regimen. She tolerated this well without orthostatic dizziness. Initial chest x-ray did show pulmonary vascular congestion however the patient was not short of breath noted she require oxygen. Electrocardiogram showed no ischemic abnormalities and showed sinus arrhythmia. Creatinine was relatively stable at 1.8 and hemoglobin 9.9 consistent with her known chronic kidney disease stage 3 and anemia of chronic kidney disease. Urine for catecholamines was colle
== END 2022-08-01 15:17 | disposition home or self-care (01) ==
LOC: ANHED 07-31 07:23 → ANH2MED 08-01 14:56 → ANHIMU 08-03 13:52
PROVIDERS: Emergency Medicine; Nurse Practitioner; Admitting Provider Hospitalist; Emergency Provider Preventive Medicine Aerospace Medicine; PCP Emergency Medicine; Visit Provider Internal Medicine
DX: I16.1 Hypertensive emergency (principal); I13.0 Hypertensive heart and chronic kidney disease with heart failure and stage 1 through stage 4 chronic kidney disease, or unspecified chronic kidney disease; N18.4 Chronic kidney disease, stage 4 (severe); I50.9 Heart failure, unspecified; R77.8 Other specified abnormalities of plasma proteins; K21.9 Gastro-esophageal reflux disease without esophagitis; E78.5 Hyperlipidemia, unspecified; I73.9 Peripheral vascular disease, unspecified; F10.90 Alcohol use, unspecified, uncomplicated; F12.90 Cannabis use, unspecified, uncomplicated; Z20.822 Contact with and (suspected) exposure to COVID-19; R00.1 Bradycardia, unspecified; R94.31 Abnormal electrocardiogram [ECG] [EKG]; Z95.820 Peripheral vascular angioplasty status with implants and grafts; Z87.891 Personal history of nicotine dependence; Z79.82 Long term (current) use of aspirin; Z79.51 Long term (current) use of inhaled steroids; Z79.02 Long term (current) use of antithrombotics/antiplatelets; Z79.899 Other long term (current) drug therapy; Z82.49 Family history of ischemic heart disease and other diseases of the circulatory system
CPT/HCPCS: 36415; 80048; 80053; 83735; 84443; 84484; 85025; 87636; 93005; 96374; 96376; 99285; A9270; G0378; J0360

== ENCOUNTER 2022-08-19 10:56 | Outpatient (CLI) | payer MEDICARE, SELFPAY ==
[2022-08-19 20:09] LABS: Hepatitis C Virus Antibody Negative (Negative)
[2022-08-25 10:43] LABS: PRA 0.75 ng/mL/h (0.25-5.82)
== END 2022-08-19 10:57 | disposition home or self-care (01) ==
LOC: ANHGOSHLAB 11:01
PROVIDERS: PCP Internal Medicine; Visit Provider Internal Medicine
DX: I12.9 Hypertensive chronic kidney disease with stage 1 through stage 4 chronic kidney disease, or unspecified chronic kidney disease (principal); N18.4 Chronic kidney disease, stage 4 (severe)
CPT/HCPCS: 36415; 82088; 84244; 86803

== ENCOUNTER 2022-08-27 08:20 | Outpatient (NON) | payer MEDICARE, SELFPAY ==
[2022-08-31 14:53] LABS: Metanephrine, Total Urine 587 mcg/24 h (224-832); Metanephrine, Urine 129 mcg/24 h (90-315); Normetanephrine, Urine 458 mcg/24 h (122-676)
[2022-09-01 16:52] LABS: Calculated Total (E+NE) 18 mcg/24 h (26-121); Dopamine, 24hr Urine 67 mcg/24 h (52-480); Norepinephrine, 24hr Urine 18 mcg/24 h (15-100)
== END 2022-08-27 08:21 | disposition home or self-care (01) ==
LOC: ANHGOSHLAB 08:22
PROVIDERS: PCP Internal Medicine; Visit Provider Internal Medicine
DX: I12.9 Hypertensive chronic kidney disease with stage 1 through stage 4 chronic kidney disease, or unspecified chronic kidney disease (principal); N18.4 Chronic kidney disease, stage 4 (severe)
CPT/HCPCS: 82384; 83835

== ENCOUNTER 2022-09-03 07:50 | Outpatient (CLI) | payer MEDICARE, SELFPAY ==
--- NOTE | ~2022-09-03 | US_ITS ---
EXAMINATION: US retroperitoneal duplex ltd DATE: 09/03/2022 08:55 INDICATION: Hypertension. TECHNIQUE: Multiple grayscale, color Doppler, and pulsed Doppler images of the kidneys and renal chin feli were obtained. COMPARISON: Kidney ultrasound 01/11/2020 FINDINGS: The aorta peak systolic velocity was not measured. The right renal artery peak systolic velocity is 1 23 cm/s in the proximal segment, 57 cm/s in the mid segment, and 47 cm/s in the distal segment. The l eft renal artery peak systolic velocity is not measured in the proximal segment, 109 cm/s in the mid segment, and 46 cm/s in the distal segment. There is a 2.2 cm cyst in left kidney. IMPRESSION: 1. No Doppler evidence of renal artery stenosis. Reviewed, dictated and finalized at location A. MEL CUTTER HELPER
--- NOTE | ~2022-09-03 | US_ITS ---
Ultrasound of the Abdominal Aorta INDICATION: Cardiovascular disorder, abdominal aortic aneurysm TECHNIQUE: Grayscale, color Doppler, and pulsed Doppler images of the aorta and common iliac arteries were obtained. COMPARISON: None. FINDINGS: Maximum vascular dimensions are as follows: Proximal aorta: 2.0 cm Mid aorta: 1.5 cm Distal aorta: 1.4 cm Right common iliac artery: 0.7 cm Left common iliac artery: 0.7 cm There is no evidence of abdominal aortic aneurysm. There is probable mild atherosclerotic calcificati on of the aorta. IMPRESSION: No abdominal aortic aneurysm. Reviewed, dictated and finalized at location . ING MECHANIC
== END 2022-09-03 07:51 | disposition home or self-care (01) ==
PROVIDERS: PCP Internal Medicine; Visit Provider Internal Medicine
DX: I73.9 Peripheral vascular disease, unspecified (principal); N18.4 Chronic kidney disease, stage 4 (severe); I12.9 Hypertensive chronic kidney disease with stage 1 through stage 4 chronic kidney disease, or unspecified chronic kidney disease; Z13.6 Encounter for screening for cardiovascular disorders; Z87.891 Personal history of nicotine dependence
CPT/HCPCS: 76706; 93976

== ENCOUNTER 2022-11-25 21:25 | Observation (INO) | payer MEDICARE, SELFPAY ==
[2022-11-25] VITALS (16 sets, daily range): BP systolic 125–163; BP diastolic 53–72; PULSE 55–74; RESP 12–19; TEMP 36.6; O2SAT 94–100
--- NOTE | ~2022-11-25 | NM_ITS ---
EXAMINATION: NM sterling stress w perfusion DATE: 11/26/2022 16:29 INDICATION: Chest pain. TECHNIQUE: Rest images were obtained following intravenous administration of 10.2 mCi Tc99m tetrofosm in (Myoview). The patient was infused intravenously with Lexiscan (regadenoson). Then, 33.1 mCi Tc99m tetrofosmin (Myoview) was administered intravenously, and stress images were obtained. Data was rm nstructed into short axis and horizontal and vertical long axis SPECT images. Gated SPECT images were also obtained. COMPARISON: None. FINDINGS: There is no definite reversible or fixed perfusion abnormality to suggest ischemia or infar ction. There is no segmental wall motion abnormality. Left ventricular ejection fraction measures 6 8%. IMPRESSION: 1. No definite ischemia or infarct. 2. Normal left ventricular ejection fraction measuring 68%. Reviewed, dictated and finalized at location A.
--- NOTE | ~2022-11-25 | XR_ITS ---
EXAMINATION: XR chest 2V Exam Date/Time: 11/25/2022 21:30 CDT HISTORY: chest pain FOR 1 DAY, NO OTHER COMPLAINTS Comparison: 06/20/2022. RESULT: Lines, tubes, and devices: None. Lungs and pleura: Multiple calcified granulomas. Senescent changes. Cardiomediastinal silhouette: Stable. Calcified hilar nodes. Dilated central pulmonary arteries as c an be seen with pulmonary arterial hypertension. Other: No acute osseous or upper abdominal finding. IMPRESSION: No acute cardiopulmonary process. Reviewed, dictated and finalized at location K.
--- NOTE | 2022-11-25 21:26 | ECG_ITS ---
Measurements Intervals [place] Rate: 66 P: 68 [place]: 168 QRS: -17 QRSD: 92 T: 77 QT: 406 QTc: 427 Interpretive Statements SINUS RHYTHM DELAYED PRECORDIAL R/S TRANSITION NONSPECIFIC ST & T-WAVE ABNORMALITY- DIFFUSE LEADS BORDERLINE ECG COMPARED TO ECG 07/31/2022 21:37:00 SINUS RHYTHM NOW PRESENT Electronically Signed On 11-26-2022 13:44:11 CDT by Richard Padilla D.O.
[2022-11-25 21:42] LABS: Basophils Percent Auto 0.4 % (0.2-1.2); Eosinophils Absolute Auto 0.3 K/mm3 (0-0.3); Eosinophils Percent Auto 2.8 % (0-4.4); Hematocrit 33.6 % (37.0-47.0); Hemoglobin 10.8 g/dL (12.0-15.0); Immature Granulocyte Absolute 0.04 K/mm3 (0.00-0.031); Immature Granulocyte Percent A 0.4 % (0-0.5); Lymphocytes Absolute Auto 2.88 K/mm3 (0.9-3.2); Lymphocytes Percent Auto 25.8 % (18.3-44.2); Mean Corpuscular HGB Conc 32.1 g/dl (32-36); Mean Corpuscular Hemoglobin 28.3 pg (26-34); Mean Platelet Volume 10.5 fl (7.4-10.4); Monocytes Absolute Auto 1.2 K/mm3 (0.1-0.6); Monocytes Percent Auto 11.1 % (2.6-8.5); Neutrophils Absolute Auto 6.7 K/mm3 (1.3-6.7); Neutrophils Percent Auto 59.5 % (45.5-73.1); Platelet Count Result 258 k/mm3 (150-375); Red Blood Count 3.82 M/mm3 (4.2-5.4); Red Cell Distribution Width 15.4 % (11.5-14.5); White Blood Count 11.2 K/mm3 (4.5-10.0)
[2022-11-25 21:52] LABS: Alanine Aminotransferase 22 U/L (6-35); Albumin Level 4.9 g/dL (3.5-5.1); Alkaline Phosphatase 99 U/L (38-126); Anion Gap 13 mmol/L (8-16); Aspartate Amino Transferase 33 U/L (14-36); Bilirubin,Total 0.6 mg/dL (0.2-1.3); Blood Urea Nitrogen 74 mg/dL (7-17); Calcium 10.1 mg/dL (8.4-10.2); Carbon Dioxide 25 mmol/L (22-30); Chloride 101 mmol/L (98-107); Estimated CRCL calculation 13 ml/min; Estimated Glomerular Filt Rate 15; Glucose 118 mg/dL (65-110); Lipase 504 U/L (23-300); Potassium 3.6 mmol/L (3.4-5.0); Sodium 139 mmol/L (137-145)
[2022-11-25 21:53] LABS: Prothrombin Time 13.1 Seconds (11.1-14.7)
[2022-11-25 21:54] LABS: Partial Thromboplastin Time 29.6 SECONDS (22.3-36.8)
[2022-11-25 22:04] LABS: Troponin I 0.017 ng/mL (0.000-0.034)
[2022-11-26] VITALS (33 sets, daily range): BP systolic 130–178; BP diastolic 50–66; PULSE 50–76; RESP 11–24; TEMP 36.6–37.1; O2SAT 95–100; BMI 20.3
--- NOTE | 2022-11-26 | ECHO_ITS ---
Patient Info Name: Veronica Bowles Age: 77 years : 1945 Gender: Female Ht: 65 in Wt: 122 lbs BSA: 1.59 m2 HR: 52 bpm BP: 178 / 66 mmHg Technical Quality: Good Exam Date: 11/26/2022 1:39 PM Exam Location: [facility] Patient Status: Inpatient Admit Date: 11/26/2022 Staff Ordering Physician: Richard Padilla DO Ceo: Vicky Gallagher RDCS Attending Provider: Genie Anaya MD Referring Physician: Randy CAMPOS; Exam Type: CA echo doppler color flow Study Info Indications R07.9 - Chest pain, unspecified Complete two-dimensional, color flow and Doppler transthoracic echocardiogram is performed. Summary 1. Complete two-dimensional, color flow and Doppler transthoracic echocardiogram is performed. 2. Left ventricular chamber dimension is normal. 3. Left ventricular systolic function is normal, estimated at 60-65%. 4. The left ventricular diastolic function is grade I diastolic dysfunction. 5. E/e' 15 is elevated. 6. Global longitudinal strain is normal at -21.8%. 7. Left atrial chamber dimension is moderately enlarged. 8. Right atrial chamber dimension is mildly enlarged. 9. There is mild aortic valve sclerosis. 10. There is trace tricuspid valve regurgitation. 11. No pulmonary hypertension, estimated pulmonary arterial systolic pressure is 36 mmHg. 12. There is trace pulmonic regurgitation. Left Ventricle E/e' 15 is elevated. Global longitudinal strain is normal at -21.8%. Left ventricular chamber dimension is normal. Left ventricular systolic function is normal, estimated at 60-65%. The left ventricular diastolic function is grade I diastolic dysfunction. Right Ventricle Right ventricular chamber dimension is normal. Right ventricular systolic function is normal. Left Atria Left atrial chamber dimension is moderately enlarged. Right Atria Right atrial chamber dimension is mildly enlarged. Aortic Valve The aortic valve is trileaflet. There is mild aortic valve sclerosis. There is no aortic valve stenosis. There is no aortic valve regurgitation. Pulmonic Valve There is trace pulmonic regurgitation. Mitral Valve There is no mitral valve stenosis. There is no mitral valve regurgitation. Tricuspid Valve There is trace tricuspid valve regurgitation. No pulmonary hypertension, estimated pulmonary arterial systolic pressure is 36 mmHg. Pericardium/Pleural There is no pericardial effusion. Inferior Vena Cava Normal inferior vena cava with >50% collapse upon inspiration consistent with normal right atrial pressure, 5 mmHg. Aorta The aortic root size at the sinus of Valsalva is normal. Left Ventricular Outflow Tract Name Value Normal LVOT 2D LVOT Diameter 2.0 cm LVOT Doppler LVOT Peak Gradient 10 mmHg LVOT Mean Gradient 5 mmHg LVOT VTI 38 cm LVOT VTI/AV VTI Ratio 0.9 LVOT Stroke Volume 119 ml LVOT CO 18.2 l/min LVOT CI 11.4 l/min/m2 Pulmonic Valve Name
[2022-11-26 01:31] LABS: Troponin I 0.026 ng/mL (0.000-0.034)
--- NOTE | 2022-11-26 02:15 | ED.GENADULT ---
HPI - General Adult General Chief complaint: Chest Pain Stated complaint: chest pain Time Seen by Provider: 11/25/22 21:55 History of Present Illness HPI narrative: This is a 77-year-old female with history of vascular disease presenting with chest pain. Originally she had chest pain approximately 2 nights ago that lasted for 15 minutes. It then reoccurred tonight and is scribed as a pressure in the center for chest that radiates up to her jaw. It is 7/10 in intensity and lasted approximately 1 hour before it resolved. She has never experienced pain like this before there were no exacerbating or alleviating factors. It is not associated with vomiting diaphoresis or exertion. She has no fever chills productive cough. Latin Dance Instructor is Dr. Jorge. Related Data Home Medications Medication Instructions Recorded Confirmed aspirin 81 mg chewable tablet 81 mg PO DAILY 06/21/22 09/22/22 cholecalciferol (vitamin D3) 50 50 mcg PO DAILY 06/21/22 09/22/22 mcg (2,000 unit) tablet (Vitamin D3) Allergies Allergy/AdvReac Type Severity Reaction Status Date / Time No Known Allergies Allergy Verified 11/25/22 21:46 [facility] Past Medical History Medical History Anxiety Breast cancer screening by mammogram CHF (congestive heart failure), NYHA class II Chronic GERD CKD (chronic kidney disease) stage 4, GFR 15-29 ml/min Close exposure to COVID-19 virus Essential hypertension HLD (hyperlipidemia) HLD (hyperlipidemia) Hypertension Kidney disease Peripheral vascular disease Wrist fracture, left Wrist pain Wrist pain Surgical History Surgical History H/O cataract extraction History of intravascular stent placement History of surgery Right leg artery surgery Family History Family History Father Cerebrovascular accident, Onset Age: 49 History of blood clots Kidney disorder Hypertension Mother Asthma Diabetes mellitus Sibling Congestive heart failure Social History Social History Social History: She lives with her son and she is . 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 She has no power finance attorney. Code status full code Smoking packs per day: 2 Smoking cigarettes per day: 40.0 Years smoked: 25 Smoking pack-years: 50.00 Smoking status: Former smoker Tobacco type: cigarettes Second hand tobacco smoke exposure: No Smoking end date: 07/26/13 Alcohol intake: current Drinks per week: 4 Substance use: former Substance use type: marijuana Lack of Transportation: No Lack of Food: Never True Current Housing: I Have Housing Concerned About Future Housing: No Difficulty Paying Gas/Electric Bills: No Difficulty Paying for Meds: No Currently Unemployed: No Education: High School Diploma/GED Difficulty w/ Childcare or Family Care: No Gender identity (if verbalized by the patient): Female Spiritual care concerns: No Exam Narrative: APPEARANCE: No apparent distress. Head: atraumatic. EYES: EOMI, NOSE: Atraumatic NECK: Trachea midline RESPIRATORY: No increased rate of breathing, clear to auscultation CARDIOVASCULAR: RRR, no peripheral edema ABDOMINAL: Non-distended, soft nontender no guarding or rebound MUSCULOSKELETAl: No obvious deformities NEURO: Alert. Moving 4/4 extremities SKIN:: Warm, dry. Normal color PSYCHIATRIC: Normal affect Course Vital Signs Vital signs: Vital Signs Temperature 98 F 11/25/22 21:37 Pulse Rate 74 11/25/22 21:37 Respiratory Rate 18 11/25/22 21:37 Blood Pressure 163/58 H 11/25/22 21:37 Pulse Oximetry 98 11/25/22 21:37 Oxygen Delivery Room Air 11/25/22
[2022-11-26] MEDS: SODIUM CHLORIDE 0.9% IV 1,000 ML 999 ML IV CONT (02:51)
--- NOTE | 2022-11-26 03:30 | PM.IMHP ---
H&P: HPI History of Present Illness Date/Time: 11/26/22 03:30 Chief Complaint: Chest pain Narrative: This is a 77-year-old female with past medical history significant for chronic kidney disease, GERD, hypertension, peripheral neuropathy, dyslipidemia, diastolic dysfunction. Patient presents to the emergency room due to chest pain localized to the retrosternal area with radiation to the neck and jaw rates it at 7 and to of 10 in intensity, patient denies any accompanying symptoms no lightheadedness, no syncope no near syncope, no nausea, no vomiting, no palpitations, no shortness of breath, no cough, no sputum production. Patient has been in her usual state of health. Preliminary workup was significant for BUN 59 creatinine 3.1 a chest x-ray was reported as: EXAMINATION:? XR chest 2V Exam Date/Time:? 11/25/2022 21:30 CDT HISTORY: chest pain FOR 1 DAY, NO OTHER COMPLAINTS ? Comparison:? 06/20/2022. RESULT: Lines, tubes, and devices:? None. Lungs and pleura:? Multiple calcified granulomas. Senescent changes. Cardiomediastinal silhouette:? Stable. Calcified hilar nodes. Dilated central pulmonary arteries as can be seen with pulmonary arterial hypertension. Other:? No acute osseous or upper abdominal finding. ? IMPRESSION: No acute cardiopulmonary process. Patient is being placed in observation for further evaluation management and treatment. Review of Systems Review of Systems: Retrosternal chest pain Constitutional: Constitutional: Denies chills, Denies fever(s), Denies malaise, Denies night sweats, Denies poor appetite and Denies weakness Eyes: Eyes: Denies change in vision ENT: Denies dysphagia and Denies odynophagia Cardiovascular: Cardiovascular: Reports chest pain, Reports chest pain at rest, Denies leg edema, Denies lightheadedness, Reports radiating jaw, neck or arm pain, Denies palpitations and Denies dyspnea Respiratory: Respiratory: Denies cough and Denies excessive phlegm production Gastrointestinal: Gastrointestinal: Denies abdominal pain, Denies dyspepsia, Denies heartburn, Denies diarrhea, Denies nausea and Denies vomiting Genitourinary: Genitourinary: Denies dysuria Musculoskeletal: Musculoskeletal: Denies back pain, Denies joint swelling and Denies muscle weakness Integumentary/Breasts: Skin/Breast: Denies rash Neurologic: Denies focal weakness and Denies Sensory deficit (Neuro) Psychiatric: Psychiatric: Reports no additional psychiatric complaints and Reports as per HPI Endocrine: Endocrine: Denies cold intolerance, Denies flushing, Denies heat intolerance, Denies polyphagia, Denies polydipsia and Denies palpitations Hematologic/Lymphatic: Hematologic/Lymphatic: Reports no additional hematologic/lymphatic complaints and Reports as per HPI Allergic/Immunologic: Allergic/Immunologic: Reports no additional allergic/immunologic complaints and Reports as per HPI PMFSH Past Medical History Medical History Anxiety Breast cancer screening by mammogram CHF (congestive heart failure), NYHA class II Chronic GERD CKD (chronic kidney disease) stage 4, GFR 15-29 ml/min Close exposure to COVID-19 virus Essential hypertension HLD (hyperlipidemia) HLD (hyperlipidemia) Hypertension Kidney disease Peripheral vascular disease Wrist fracture, left Wrist pain Wrist pain Surgical History Surgical History H/O cataract extraction History of intravascular stent placement History of surgery Right leg artery surgery Family History Family History Father Cerebrovascular accident, Onset Age: 49 History of blood clots Kidney disorder Hypertension Mother Asthma Diabetes mellitus Sibling Congestive heart failure Social History Social History Social History: She lives
--- NOTE | 2022-11-26 04:11 | EST_ITS ---
Patient Info Name: Veronica Bowles Age: 77 years : 1945 Gender: Female Ht: 65 in Wt: 137 lbs BSA: 1.69 m2 HR: 52 bpm BP: 160 / 71 mmHg Heart Rhythm: Sinus Rhythm Exam Date: 11/26/2022 3:19 PM Exam Location: [facility] Patient Status: Inpatient Admit Date: 11/26/2022 Staff Ordering Physician: Genie Anaya MD Attending Provider: Genie Anaya MD Exercise Technologist: Rosie Pedroza CT Exam Type: CA stress sterling w NM Study Info Indications R07.89 - Other chest pain A regadenoson stress test was performed. Summary 1. 1. Negative lexiscan stress test for ischemic ST changes by ECG criteria. 2. 2. Baseline hypertension. 3. 3. Nuclear scan to follow and will be reported separately. Please correlate with it. 4. 4. Patient informed of the above results. Protocol: Lexiscan Stress ECG Details Stage: REST Duration (min): 1 min : 57 sec HR (bpm): 52 SBP (mmHg): 160 DBP (mmHg): 71 Stage: REST Duration (min): 15 min : 39 sec HR (bpm): 54 SBP (mmHg): 160 DBP (mmHg): 71 Stage: STAGE 1 Duration (min): 0 min : 59 sec HR (bpm): 67 SBP (mmHg): 178 DBP (mmHg): 52 Stage: RECOVERY Duration (min): 1 min : 0 sec HR (bpm): 74 SBP (mmHg): 178 DBP (mmHg): 52 Stage: RECOVERY Duration (min): 2 min : 0 sec HR (bpm): 65 SBP (mmHg): 178 DBP (mmHg): 52 Stage: RECOVERY Duration (min): 3 min : 0 sec HR (bpm): 65 SBP (mmHg): 178 DBP (mmHg): 52 Stage: RECOVERY Duration (min): 3 min : 27 sec HR (bpm): 64 SBP (mmHg): 139 DBP (mmHg): 56 Rest HR: 54 bpm Peak HR: 74 bpm Rest Sys BP: 160 mmHg Peak Sys BP: 178 mmHg Max Pred HR: 145 bpm % Max Pred HR: 51 % Target HR: 123 bpm Max RPP: 13,172 bpm*mmHg Termination Reason: Completed protocol Cardiac Symptoms: Shortness of breath Total Time: 1 min : 0 sec Rest Gallagher BP: 71 mmHg Peak Gallagher BP: 52 mmHg Total Dose: 0.4 mg Resting ECG Sinus bradycardia. Stress ECG No ST changes. Arrhythmias None. Report Signatures
[2022-11-26 08:58] LABS: Troponin I 0.025 ng/mL (0.000-0.034)
--- NOTE | 2022-11-26 09:40 | PM.IMPN ---
Progress Note: A&P Assessment and Plan (1) Chest pain radiating to jaw: Code(s): R07.9 - Chest pain, unspecified Status: Acute Assessment and Plan: Lexiscan stress test in a.m. Cardiology consult H/o longstanding refractory hypertension, followed by cardio + nephrology (2) Acute kidney injury superimposed on chronic kidney disease: Code(s): N17.9 - Acute kidney failure, unspecified; N18.9 - Chronic kidney disease, unspecified Status: Acute Assessment and Plan: Significant bump in creatinine, 3.1, unsure of etiology, repeat pending, check FeNA (3) Benign hypertension with chronic kidney disease: Code(s): I12.9 - Hypertensive chronic kidney disease with stage 1 through stage 4 chronic kidney disease, or unspecified chronic kidney disease Status: Acute (4) Chronic kidney disease, stage IV (severe): Code(s): N18.4 - Chronic kidney disease, stage 4 (severe) Status: Acute Assessment and Plan: Baseline creatinine unknown, was 1.8 in Jul 2022 (5) PAD (peripheral artery disease): Code(s): I73.9 - Peripheral vascular disease, unspecified Status: Acute (6) Chronic GERD: Code(s): K21.9 - Gastro-esophageal reflux disease without esophagitis Status: Acute Assessment and Plan: On no meds at home, tums and H2 blockers as needed Plan DVT prophylaxis with SCDs GI prophylaxis not indicated Code status full code Subjective Date/time seen: 11/26/22 09:40 Interval history: No overnight events noted. No chest pain or shortness of breath. No nausea, vomiting or diarrhea. No fevers or chills. Review of Systems Review of Systems: 12 point review of systems was assessed and was negative except as noted in the HPI Exam Narrative: General: No acute distress, alert and oriented per baseline HEENT: Atraumatic, normocephalic, mucous membranes moist CV: Regular rate and rhythm, S1, S2 Lungs: Clear to auscultation bilaterally, no rales or crackles noted, no wheezes, good air entry Abdomen: Soft, nontender, nondistended Extremities: Normal to inspection Skin: No rashes noted, no lesions or wounds seen Psych: Euthymic, normal affect Objective Data Vital Signs Vital Signs: Vital Signs - 24 hr 11/25/22 21:37 11/25/22 21:47 11/25/22 21:59 Temperature 98 F Pulse Rate 74 68 62 Respiratory Rate 18 16 14 Blood Pressure 163/58 H 162/72 H Pulse Oximetry 98 100 98 Oxygen Delivery Room Air 11/25/22 22:00 11/25/22 22:01 11/25/22 22:15 Temperature Pulse Rate 62 64 60 Respiratory Rate 14 15 15 Blood Pressure 142/54 H Pulse Oximetry 98 98 98 Oxygen Delivery 11/25/22 22:16 11/25/22 22:33 11/25/22 22:50 Temperature Pulse Rate 64 58 L 58 L Respiratory Rate 17 13 13 Blood Pressure 137/54 L Pulse Oximetry 97 96 96 Oxygen Delivery 11/25/22 23:00 11/25/22 23:01 11/25/22 23:20 Temperature Pulse Rate 58 L 58 L 57 L Respiratory Rate 14 16 13 Blood Pressure 125/53 L Pulse Oximetry 96 97 94 Oxygen Delivery 11/25/22 23:31 11/25/22 23:33 11/25/22 23:45 Temperature Pulse Rate 55 L 55 L 61 Respiratory Rate 13 13 19 Blood Pressure 131/56 L Pulse Oximetry 95 95 99 Oxygen Delivery 11/25/22 23:46 11/26/22 00:01 11/26/22 00:02 Temperature Pulse Rate 60 58 L 76 Respiratory Rate 12 19 16 Blood Pressure 157/64 H 144/59 H Pulse Oximetry 98 98 100 Oxygen Delivery 11/26/22 00:46 11/26/22 01:00 11/26/22 01:29 Temperature Pulse Rate 65 54 L 52 L Respiratory Rate 24 H 13 12 Blood Pressure 130/50 L Pulse Oximetry 98 97 Oxygen Delivery 11/26/22 01:36 11/26/22 01:45 11/26/22 02:00 Temperature Pulse Rate 51 L 51 L 57 L Respiratory Rate 13 14 17 Blood Pressure Pulse Oximetry 97 97 98 Oxygen Delivery 11/26/22 02:19 11/26/22 02:31 11/26/22 02:35 Temperature Pulse Rate 56 L 55 L 55 L Respiratory Rate 12 11 L 1
[2022-11-26 10:49] LABS: Basophils Percent Auto 0.6 % (0.2-1.2); Eosinophils Absolute Auto 0.2 K/mm3 (0-0.3); Hematocrit 33.2 % (37.0-47.0); Hemoglobin 10.6 g/dL (12.0-15.0); Immature Granulocyte Absolute 0.02 K/mm3 (0.00-0.031); Immature Granulocyte Percent A 0.3 % (0-0.5); Lymphocytes Absolute Auto 1.46 K/mm3 (0.9-3.2); Lymphocytes Percent Auto 20.6 % (18.3-44.2); Mean Corpuscular HGB Conc 31.9 g/dl (32-36); Mean Corpuscular Hemoglobin 28.3 pg (26-34); Mean Corpuscular Volume 88.8 fl (80-100); Mean Platelet Volume 10.8 fl (7.4-10.4); Monocytes Absolute Auto 0.6 K/mm3 (0.1-0.6); Monocytes Percent Auto 8.3 % (2.6-8.5); Neutrophils Absolute Auto 4.8 K/mm3 (1.3-6.7); Neutrophils Percent Auto 67.2 % (45.5-73.1); Platelet Count Result 252 k/mm3 (150-375); Red Blood Count 3.74 M/mm3 (4.2-5.4); Red Cell Distribution Width 15.4 % (11.5-14.5); White Blood Count 7.1 K/mm3 (4.5-10.0)
[2022-11-26 11:08] LABS: Alanine Aminotransferase 21 U/L (6-35); Albumin Level 4.1 g/dL (3.5-5.1); Alkaline Phosphatase 85 U/L (38-126); Anion Gap 8 mmol/L (8-16); Aspartate Amino Transferase 29 U/L (14-36); Bilirubin,Total 0.5 mg/dL (0.2-1.3); Blood Urea Nitrogen 59 mg/dL (7-17); Calcium 9.5 mg/dL (8.4-10.2); Carbon Dioxide 27 mmol/L (22-30); Chloride 106 mmol/L (98-107); Estimated CRCL calculation 17 ml/min; Estimated Glomerular Filt Rate 20; Glucose 96 mg/dL (65-110); Sodium 141 mmol/L (137-145)
[2022-11-26] MEDS: CHOLECALCIFEROL 1,000 UNITS TABLET 2000 UNITS PO (11:53)
[2022-11-26] MEDS: ATORVASTATIN 20 MG TABLET PO (11:54)
[2022-11-26] MEDS: cloNIDine HCL 0.1 MG TABLET PO ×2 (11:54→17:38)
[2022-11-26] MEDS: amLODIPine BESYLATE 5 MG TABLET 10 MG PO (11:55)
[2022-11-26] MEDS: CLOPIDOGREL BISULFATE 75 MG TABLET PO (11:56)
[2022-11-26] MEDS: FUROSEMIDE 40 MG TABLET PO (11:56)
[2022-11-26] MEDS: ASPIRIN 81 MG CHEWABLE TABLET PO (11:56)
[2022-11-26] MEDS: hydrALAZINE HCL 25 MG TABLET PO ×2 (11:57→17:38)
[2022-11-26] MEDS: NEBIVOLOL HCL 5 MG TABLET BY MOUTH (11:59)
[2022-11-26 12:27] LABS: Creatinine Urine 65.9 mg/dL
[2022-11-26 12:31] LABS: Sodium Urine Random 73 meq/L
--- NOTE | 2022-11-26 14:20 | PC.NURSE ---
DOWN VIA WC FOR STRESS TEST.
--- NOTE | 2022-11-26 14:21 | PM.CNNEP ---
Assessment and Plan Assessment and plan (1) BELEN (acute kidney injury): Code(s): N17.9 - Acute kidney failure, unspecified Status: Acute Assessment and Plan: suspect volume depletion/mild dehydration s/p 1 liter of IVFs in ER and creatinine better by AM labs follow trend of repeat labs and UOP (2) Chronic kidney disease, stage IV (severe): Code(s): N18.4 - Chronic kidney disease, stage 4 (severe) Status: Chronic Assessment and Plan: baseline creatinine runs around 1.6 - 2.0mg/dl however, she has fluctuated to extremes in the past due to hypertension, severe vascular disease, and age-related change (3) Chest pain: Code(s): R07.9 - Chest pain, unspecified Status: Acute Assessment and Plan: as noted by symptoms on presentation Cardiology consulted stress test this AM (4) Essential hypertension: Code(s): I10 - Essential (primary) hypertension Status: Chronic Assessment and Plan: notoriously difficult to control at baseline work-up for secondary causes has been negative (although I do not think PAVAN has been ruled out) could consider changing amlodipine to nifedipine XL but will defer this to the outpatient setting follow trend of hemodynamics I will continue the follow up patient with you while she remains hospitalized to make further recommendations during her hospital course. Thank you for allowing me to participate in the care of this patient. History of Present Illness Reason for Consult Consult date: 11/26/22 Reason for consult: acute renal failure (on chronic kidney disease) Chief Complaint Chief complaint: Chest Pain, BELEN History of Present Illness Narrative: The patient is a 77-year-old female with extensive past medical history as outlined below who presented to [facility] Emergency room with complaints of chest pain. The patient reports that she had chest pain approximately 2 nights ago that lasted about 15 minutes. It seems to resolve on its own without any specific intervention. This same chest pain occurred once again the evening of admission which she described as a pressure sensation in the center of the chest that radiated up to her jaw. The pain was 7/10 in intensity and lasted about an hour before eventually resolved. No reported exacerbating or alleviating factors and she reports that she has never had chest pain like this before. No apparent associated nausea, vomiting, diaphoresis, shortness of breath, fevers, chills, palpitations, dizziness, or lightheadedness. Given these constellation of symptoms, she presented to the emergency room for further assessment. Workup and evaluation emergency room demonstrated the patient be hemodynamically stable if not hypertensive and in no acute distress. Routine blood tests were only significant for an elevated BUN and creatinine above her baseline chronic kidney disease. EKG did not show any significant ischemic changes and her initial troponin was within normal limits. Given her risk factors for coronary artery disease as well as her elevated creatinine above baseline, she received a L of IV fluids in the emergency room and was subsequent admitted [facility] for further evaluation and therapy. Renal consultation was requested due to her acute kidney injury on top of her baseline kidney disease. The patient is well familiar to me as I take care of her outpatient management of her chronic kidney disease. Her baseline creatinine normally runs around 1.6 - 2.0 mg/dL although she has fluctuated to extremes in the past. Her outpatient evaluation with regard to her chronic kidney disease has led to the conclusion that the etiology of her renal insufficiency is secondary to her hypertension, severe peripheral vascular disease, and age-related change. Interestingly, her repeat labs this morning show improvement in her renal function without any significant changes
--- NOTE | 2022-11-26 14:26 | PM.CNCAR ---
Assessment and Plan Assessment and plan (1) Chest pain radiating to jaw: Code(s): R07.9 - Chest pain, unspecified Status: Acute Assessment and Plan: SC r/o by serial troponin and EKG. Obtain Lexiscan myoview stress test and echo. If both tests are unremarkable no further cardiac workup is needed. (2) Essential hypertension: Code(s): I10 - Essential (primary) hypertension Status: Acute Assessment and Plan: Stable. (3) HLD (hyperlipidemia): Qualifiers: Hyperlipidemia type: unspecified Qualified Code(s): E78.5 - Hyperlipidemia, unspecified Code(s): E78.5 - Hyperlipidemia, unspecified Status: Acute Assessment and Plan: On Atorvastatin. (4) PAD (peripheral artery disease): Code(s): I73.9 - Peripheral vascular disease, unspecified Status: Acute Assessment and Plan: Stable. (5) Diastolic dysfunction: Code(s): I51.89 - Other ill-defined heart diseases Status: Acute Assessment and Plan: Stable. (6) Acute kidney injury superimposed on chronic kidney disease: Code(s): N17.9 - Acute kidney failure, unspecified; N18.9 - Chronic kidney disease, unspecified Status: Acute Assessment and Plan: Monitor. History of Present Illness History of Present Illness Consult date/time: 11/26/22 14:26 Reason For Visit: Chest Pain, BELEN Narrative: 77 yr old woman who is my regular cardiology patient and a patient of Dr. Brennan presents to ER with chest pain. She has a history of PAD, hypertension, dyslipidemia, COPD, CKD stage IV, diastolic dysfunction, PAD (now followed by [facility] vascular), former smoking. Reports she went to bed last night and had chest pressure intermittently so she drove to ER. Currently no chest pain. She is limited at walking 1 block due to right leg pain. Denies chest pain, sob, orthopnea, PND, edema, dizziness, palpitations. 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 in 2007 in [place] vascular. Echo/MUGA:: 06/22/22 Echo: EF 65-70%, mild LVH, grade II diastolic dysfunction, mod LAE, mild MR/TR, RVSP 43 mmHg. Electrophysiology:: 07/31/22 EKG: Sinus bradycardia at 56 bpm, LAD, BRWP, borderline ST-T wave in high lateral leads. Review of Systems Review of Systems: All systems reviewed & are unremarkable except as noted in HPI and below Constitutional: Constitutional: Reports as per HPI, Denies chills and Denies fever(s) Cardiovascular: Cardiovascular: Reports as per HPI, Reports chest pain, Denies irregular heart rhythm, Denies leg edema and Denies lightheadedness Respiratory: Respiratory: Reports as per HPI and Reports dyspnea on exertion Gastrointestinal: Gastrointestinal: Reports as per HPI and Denies abdominal pain Genitourinary: Genitourinary: Reports as per HPI and Denies dysuria Musculoskeletal: Musculoskeletal: Reports as per HPI Neurologic: Reports as per HPI, Denies dizziness and Denies syncope PMF Past Medical History Medical History Anxiety Breast cancer screening by mammogram CHF (congestive heart failure), NYHA class II Chronic GERD CKD (chronic kidney disease) stage 4, GFR 15-29 ml/min Close exposure to COVID-19 virus Essential hypertension HLD (hyperlipidemia) HLD (hyperlipidemia) Hypertension Kidney disease Peripheral vascular disease Wrist fracture, left Wrist pain Wrist pain Surgical History Surgical History H/O cataract extraction History of intravascular stent placement History of surgery Right leg artery surgery Family History Family History Father Cerebrovascular accident, Onset Age: 49 History of blood clots Kidney disorder Hypertension Mother Asthma Diabetes mellitus Sibling Congestive h
--- NOTE | 2022-11-26 14:50 | PC.NURSE ---
DR. MAYNARD CAME BY TO SEE PT, BUT SHE IS OFF UNIT IN STRESS TEST. WILL NOTIFY HIM WHEN PT. RETURNS TO UNIT FROM STRESS TEST.
--- NOTE | 2022-11-26 16:15 | PC.NURSE ---
RETURNS TO [facility] 2 FROM STRESS TEST. WILL NOTIFY DR. MAYNARD THAT PT. HAS RETURNED.
--- NOTE | 2022-11-26 16:59 | PC.NURSE ---
DR. MAYNARD HERE TO SEE PT AT BEDSIDE.
--- NOTE | 2022-11-26 17:05 | PC.NURSE ---
NOTIFIED DR. JOHNSON OF RESULTS OF BOTH PARTS OF LEXISCAN NUCLEAR STRESS TEST. GAVE CONDITION UPDATE. OK FOR DISCHARGE HOME FROM HIS STANDPOINT. NOTIFIED OF DR. MAYNARD'S VISIT.
--- NOTE | 2022-11-26 17:10 | PC.NURSE ---
HOSPITALIST, DR. BETH, HERE TO SEE PT AT BEDSIDE. UPDATED ON RESULTS OF TESTING TODAY. UPDATED ON DR. MAYNARD'S AND DR. JOHNSON'S VISITS. PLAN FOR DISCHARGE HOME FROM HOSPITALIST. SHE WILL UPDATE DR. MAYNARD OF SUCH.
[2022-11-26] MEDS: SODIUM CHLORIDE 0.9% IV 500 ML 50 ML IV CONT (17:44)
--- NOTE | 2022-11-26 17:45 | PC.NURSE ---
PT. STATES HER RIDE WILL NOT BE HERE UNTIL ABOUT 1930. IVF'S STARTED ORDERED BY DR. MAYNARD TO RUN UNTIL DISCHARGED.
--- NOTE | 2022-11-26 18:00 | PM.DS ---
DS: Admitting Diagnosis Discharge Date 11/26/22 Admitting Diagnosis chest pain DS: Discharge Diagnosis Discharge Diagnosis (1) Chest pain radiating to jaw: Code(s): R07.9 - Chest pain, unspecified Status: Acute Assessment and Plan: Lexiscan stress test in a.m. Cardiology consult H/o longstanding refractory hypertension, followed by cardio + nephrology (2) Acute kidney injury superimposed on chronic kidney disease: Code(s): N17.9 - Acute kidney failure, unspecified; N18.9 - Chronic kidney disease, unspecified Status: Acute Assessment and Plan: Significant bump in creatinine, 3.1, unsure of etiology, repeat pending, check FeNA (3) Benign hypertension with chronic kidney disease: Code(s): I12.9 - Hypertensive chronic kidney disease with stage 1 through stage 4 chronic kidney disease, or unspecified chronic kidney disease Status: Acute (4) Chronic kidney disease, stage IV (severe): Code(s): N18.4 - Chronic kidney disease, stage 4 (severe) Status: Chronic Assessment and Plan: Baseline creatinine unknown, was 1.8 in Jul 2022 (5) PAD (peripheral artery disease): Code(s): I73.9 - Peripheral vascular disease, unspecified Status: Acute (6) Chronic GERD: Code(s): K21.9 - Gastro-esophageal reflux disease without esophagitis Status: Acute Assessment and Plan: On no meds at home, tums and H2 blockers as needed Plan DVT prophylaxis with SCDs GI prophylaxis not indicated Code status full code DS: Summary Hospital Course Hospital Course: 77-year-old female with past medical history significant for chronic kidney disease, GERD, hypertension, peripheral neuropathy, dyslipidemia, diastolic dysfunction.? Patient presents to the emergency room due to chest pain localized to the retrosternal area with radiation to the neck and jaw rates it at? 7 and to of 10 in intensity, patient denies any accompanying symptoms no lightheadedness, no syncope no near syncope, no nausea, no vomiting, no palpitations, no shortness of breath, no cough, no sputum production.? Patient has been in her usual state of health. Nephrology was consulted and thought patient had prerenal acute kidney injury which improved with IV fluid administration. Cardiology was consulted and recommended discharge after Lexiscan stress test came back negative for ischemia. Please see above and med rec for details. Time Spent with Patient Time attestation: Total time spent providing and/or coordinating discharge services: Exam Narrative: General: No acute distress, alert and oriented per baseline HEENT: Atraumatic, normocephalic, mucous membranes moist CV: Regular rate and rhythm, S1, S2 Lungs: Clear to auscultation bilaterally, no rales or crackles noted, no wheezes, good air entry Abdomen: Soft, nontender, nondistended Extremities: Normal to inspection Skin: No rashes noted, no lesions or wounds seen Psych: Euthymic, normal affect DS: Data Data Completed and Pending Labs on day of discharge: Labs from last 24 hours 11/26/22 11/26/22 11/26/22 12:09 10:18 08:22 WBC 7.1 RBC 3.74 L Hgb 10.6 L Hct 33.2 L MCV 88.8 MCH 28.3 MCHC 31.9 L RDW 15.4 H Plt Count 252 MPV 10.8 H Immature Gran % (Auto) 0.3 Neut % (Auto) 67.2 Lymph % (Auto) 20.6 [place] % (Auto) 8.3 Eos % (Auto) 3.0 Baso % (Auto) 0.6 Lymph # (Auto) 1.46 [place] # (Auto) 0.6 Eos # (Auto) 0.2 Baso # (Auto) 0.0 Abs Immat Gran (auto) 0.02 Absolute Neuts (auto) 4.8 Absolute Nucleated RBC 0.0 Nucleated RBC % 0.0 PT INR APTT Sodium 141 Potassium 4.0 Chloride 106 Carbon Dioxide 27 Anion Gap 8 BUN 59 H D Creatinine 2.40 H Estim Creat Clear Calc 17 Estimated GFR 20 L Glucose 96 Calcium 9.5 Total Bilirubin 0.5 AST 29 ALT 21 Alkaline Phosphatase 85
--- NOTE | 2022-11-26 19:25 | PC.NURSE ---
DISCHARGE INSTRUCTIONS, LAB ORDERS, FOLLOW UP CARE DISCUSSED W/ PT. QUESTIONS ANSWERED TO SATISFACTION. V/U OF ALL. DISCHARGE PACKET GIVEN. IV SITE DISCONTINUED AND ALL MONITORING EQUIPMENT REMOVED. TOLERATED WELL. UP TO BATHROOM AND DRESSING FOR DISCHARGE HOME.
--- NOTE | 2022-11-26 19:45 | PC.NURSE ---
DISCHARGED HOME, OUT VIA WC TO FRONT LOBBY TO WAIT FOR ARRIVAL OF FAMILY ON WAY. ALL BELONGINGS AND DISCHARGE PACKET IN POSSESSION. VOICES NO C/O. NO DISTRESS NOTED. DENIES PAIN.
== END 2022-11-26 19:45 | disposition home or self-care (01) ==
LOC: ANHED 11-26 02:34 → ANHCPC 11-26 10:54 → ANHIMU 11-27 11:01
PROVIDERS: Emergency Medicine; Admitting Provider Internal Medicine; Emergency Provider Emergency Medicine; PCP Internal Medicine; Visit Provider Student in an Organized Health Care Education/Training Program
DX: R07.9 Chest pain, unspecified (principal); I13.0 Hypertensive heart and chronic kidney disease with heart failure and stage 1 through stage 4 chronic kidney disease, or unspecified chronic kidney disease; I50.9 Heart failure, unspecified; N18.4 Chronic kidney disease, stage 4 (severe); F41.9 Anxiety disorder, unspecified; I73.9 Peripheral vascular disease, unspecified; E78.5 Hyperlipidemia, unspecified; K21.9 Gastro-esophageal reflux disease without esophagitis; I35.8 Other nonrheumatic aortic valve disorders; G62.9 Polyneuropathy, unspecified; F10.90 Alcohol use, unspecified, uncomplicated; Z87.891 Personal history of nicotine dependence; Z79.82 Long term (current) use of aspirin; Z79.02 Long term (current) use of antithrombotics/antiplatelets; Z79.899 Other long term (current) drug therapy; Z84.1 Family history of disorders of kidney and ureter; Z82.49 Family history of ischemic heart disease and other diseases of the circulatory system
CPT/HCPCS: 36415; 71046; 78452; 80053; 82570; 83690; 84300; 84484; 85025; 85610; 85730; 93005; 93017; 93306; 96360; 96361; 99285; A9270; A9502; G0378; J2785; J7030; J7040

== ENCOUNTER 2022-11-30 12:38 | Outpatient (CLI) | payer MEDICARE, SELFPAY ==
[2022-11-30 18:38] LABS: Anion Gap 10 mmol/L (8-16); Blood Urea Nitrogen 69 mg/dL (7-17); Calcium 9.8 mg/dL (8.4-10.2); Carbon Dioxide 28 mmol/L (22-30); Chloride 98 mmol/L (98-107); Estimated Glomerular Filt Rate 16; Glucose 118 mg/dL (65-110); Potassium 3.5 mmol/L (3.4-5.0); Sodium 136 mmol/L (137-145)
[2022-11-30 18:47] LABS: Albumin Level 4.5 g/dL (3.5-5.1); Anion Gap 11 mmol/L (8-16); Blood Urea Nitrogen 69 mg/dL (7-17); Calcium 9.8 mg/dL (8.4-10.2); Carbon Dioxide 26 mmol/L (22-30); Chloride 98 mmol/L (98-107); Estimated Glomerular Filt Rate 16; Glucose 116 mg/dL (65-110); Phosphorus 4.6 mg/dL (2.5-4.5); Potassium 3.5 mmol/L (3.4-5.0); Sodium 135 mmol/L (137-145)
[2022-11-30 18:50] LABS: Parathyroid Intact 118.1 pg/mL (7.5-53.5)
[2022-11-30 19:02] LABS: Vitamin D 25 Hydroxy 87.3 ng/mL
[2022-11-30 19:04] LABS: Creatinine Urine 77.7 mg/dL; Total Protein Urine Random 9 mg/dL; Ur Ttl Prot Creatinine Ratio 0.12 mg/mg (0-0.20)
== END 2022-11-30 12:39 | disposition home or self-care (01) ==
LOC: ANHGOSHLAB 12:39
PROVIDERS: Internal Medicine Nephrology; PCP Internal Medicine; Visit Provider Student in an Organized Health Care Education/Training Program
DX: I12.9 Hypertensive chronic kidney disease with stage 1 through stage 4 chronic kidney disease, or unspecified chronic kidney disease (principal); N25.81 Secondary hyperparathyroidism of renal origin; N18.4 Chronic kidney disease, stage 4 (severe); E55.9 Vitamin D deficiency, unspecified; N17.9 Acute kidney failure, unspecified
CPT/HCPCS: 36415; 80048; 80069; 82306; 82570; 83970; 84156

== ENCOUNTER 2023-01-13 10:22 | Outpatient (CLI) | payer MEDICARE, SELFPAY ==
[2023-01-13 20:27] LABS: Albumin Level 3.7 g/dL (3.5-5.1); Anion Gap 2 mmol/L (8-16); Blood Urea Nitrogen 42 mg/dL (7-17); Calcium 9.3 mg/dL (8.4-10.2); Carbon Dioxide 30 mmol/L (22-30); Chloride 106 mmol/L (98-107); Estimated Glomerular Filt Rate 24; Glucose 91 mg/dL (65-110); Phosphorus 3.8 mg/dL (2.5-4.5); Sodium 138 mmol/L (137-145)
== END 2023-01-13 10:23 | disposition home or self-care (01) ==
LOC: ANHGOSHLAB 10:23
PROVIDERS: PCP Internal Medicine; Visit Provider Internal Medicine Nephrology
DX: N18.4 Chronic kidney disease, stage 4 (severe) (principal)
CPT/HCPCS: 36415; 80069

== ENCOUNTER 2023-02-24 08:54 | Outpatient (CLI) | payer MEDICARE, SELFPAY ==
[2023-02-24 19:16] LABS: Alanine Aminotransferase 22 U/L (6-35); Alkaline Phosphatase 83 U/L (38-126); Anion Gap 7 mmol/L (8-16); Aspartate Amino Transferase 68 U/L (14-36); Bilirubin,Total 0.4 mg/dL (0.2-1.3); Blood Urea Nitrogen 56 mg/dL (7-17); Calcium 9.7 mg/dL (8.4-10.2); Carbon Dioxide 27 mmol/L (22-30); Chloride 105 mmol/L (98-107); Cholesterol 177 mg/dL (0-200); Estimated Glomerular Filt Rate 17; Glucose 81 mg/dL (65-110); HDL Direct 80 mg/dL; Potassium 4.3 mmol/L (3.4-5.0); Sodium 139 mmol/L (137-145); Triglycerides 58 mg/dL (<150)
[2023-02-24 19:34] LABS: LDL Cholesterol Direct 40 mg/dL
== END 2023-02-24 08:55 | disposition home or self-care (01) ==
LOC: ANHGOSHLAB 08:55
PROVIDERS: PCP Internal Medicine; Visit Provider Internal Medicine Cardiovascular Disease
DX: E78.5 Hyperlipidemia, unspecified (principal)
CPT/HCPCS: 36415; 80053; 80061

== ENCOUNTER 2023-04-12 12:55 | Outpatient (CLI) | payer MEDICARE, SELFPAY ==
[2023-04-12 20:26] LABS: Albumin Level 4.1 g/dL (3.5-5.1); Anion Gap 7 mmol/L (8-16); Blood Urea Nitrogen 47 mg/dL (7-17); Carbon Dioxide 29 mmol/L (22-30); Chloride 95 mmol/L (98-107); Estimated Glomerular Filt Rate 20; Glucose 133 mg/dL (65-110); Phosphorus 4.3 mg/dL (2.5-4.5); Sodium 131 mmol/L (137-145)
[2023-04-12 20:33] LABS: Creatinine Urine 59.1 mg/dL; Total Protein Urine Random 13 mg/dL; Ur Ttl Prot Creatinine Ratio 0.22 mg/mg (0-0.20)
== END 2023-04-12 12:56 | disposition home or self-care (01) ==
PROVIDERS: PCP Internal Medicine; Visit Provider Internal Medicine Nephrology
DX: I12.9 Hypertensive chronic kidney disease with stage 1 through stage 4 chronic kidney disease, or unspecified chronic kidney disease (principal); N18.4 Chronic kidney disease, stage 4 (severe)
CPT/HCPCS: 36415; 80069; 82570; 84156

== ENCOUNTER 2023-05-28 08:23 | Outpatient (CLI) | payer MEDICARE, SELFPAY ==
[2023-05-28 18:42] LABS: Alanine Aminotransferase 19 U/L (6-35); Alkaline Phosphatase 83 U/L (38-126); Anion Gap 7 mmol/L (8-16); Aspartate Amino Transferase 49 U/L (14-36); Bilirubin,Total 0.5 mg/dL (0.2-1.3); Blood Urea Nitrogen 47 mg/dL (7-17); Calcium 9.9 mg/dL (8.4-10.2); Carbon Dioxide 30 mmol/L (22-30); Chloride 102 mmol/L (98-107); Cholesterol 205 mg/dL (0-200); Estimated Glomerular Filt Rate 18; Glucose 92 mg/dL (65-110); HDL Direct 87 mg/dL; Potassium 3.8 mmol/L (3.4-5.0); Sodium 139 mmol/L (137-145); Triglycerides 110 mg/dL (<150)
[2023-05-28 18:53] LABS: LDL Cholesterol Direct 48 mg/dL
== END 2023-05-28 08:24 | disposition home or self-care (01) ==
LOC: ANHGOSHLAB 08:24
PROVIDERS: PCP Internal Medicine; Visit Provider Internal Medicine Cardiovascular Disease
DX: E78.5 Hyperlipidemia, unspecified (principal)
CPT/HCPCS: 36415; 80053; 80061

== ENCOUNTER 2023-08-23 13:42 | Outpatient (CLI) | payer MEDICARE, SELFPAY ==
[2023-08-23 18:51] LABS: Parathyroid Intact 191.2 pg/mL (7.5-53.5)
[2023-08-23 19:16] LABS: Albumin Level 4.4 g/dL (3.5-5.1); Anion Gap 11 mmol/L (8-16); Blood Urea Nitrogen 54 mg/dL (7-17); Calcium 9.8 mg/dL (8.4-10.2); Carbon Dioxide 26 mmol/L (22-30); Chloride 99 mmol/L (98-107); Estimated Glomerular Filt Rate 20; Glucose 98 mg/dL (65-110); Phosphorus 4.5 mg/dL (2.5-4.5); Potassium 4.1 mmol/L (3.4-5.0); Sodium 136 mmol/L (137-145)
[2023-08-23 19:46] LABS: Vitamin D 25 Hydroxy 65.7 ng/mL
[2023-08-23 19:59] LABS: Creatinine Urine 149.4 mg/dL; Total Protein Urine Random 8 mg/dL; Ur Ttl Prot Creatinine Ratio 0.05 mg/mg (0-0.20)
== END 2023-08-23 13:43 | disposition home or self-care (01) ==
LOC: ANHGOSHLAB 13:44
PROVIDERS: PCP Internal Medicine; Visit Provider Internal Medicine Nephrology
DX: I12.9 Hypertensive chronic kidney disease with stage 1 through stage 4 chronic kidney disease, or unspecified chronic kidney disease (principal); N18.4 Chronic kidney disease, stage 4 (severe); N25.81 Secondary hyperparathyroidism of renal origin; E55.9 Vitamin D deficiency, unspecified
CPT/HCPCS: 36415; 80069; 82306; 82570; 83970; 84156

== ENCOUNTER 2023-10-28 19:35 | Emergency (ER) | payer MEDICARE, SELFPAY ==
--- NOTE | ~2023-10-28 | XR_ITS ---
EXAMINATION: XR toe 3rd RT min 2V DATE: 10/28/2023 21:54 INDICATION: Swelling at the right third toe TECHNIQUE: Dorsal plantar, lateral and 2 oblique views of the right third were obtained. COMPARISON: None FINDINGS: Bone alignment is normal. There is prominent osteolysis involving the central portion of the third mi ddle phalanx suspicious for osteomyelitis. There is an indistinct cortical margin at the dorsal aspec t of the tuft of the distal phalanx and could not exclude additional osteomyelitis. No fractures. Mil d polyarticular osteoarthritis at multiple joints in the visualized mid and forefoot. There are promi nent soft tissue swelling of the third digit. No evident soft tissue gas or radiopaque foreign bodies . IMPRESSION: Prominent osteolysis involving the right third middle phalanx consistent with osteomyelitis. 2. Possible additional osteolysis/osteomyelitis at the tuft of the distal phalanx. Reviewed, dictated and finalized at location A. IMPRESSION: Prominent osteolysis involving the right third middle phalanx consistent with o steomyelitis. 2. Possible additional osteolysis/osteomyelitis at the tuft of the distal phala nx.
[2023-10-28 19:39] VITALS: BP 174/55; PULSE 59; RESP 20; TEMP 36.1; O2SAT 99
--- NOTE | 2023-10-28 20:58 | ED.LOWEXIN ---
HPI - Extremity Injury (Lower) General Chief Complaint: Extremity Injury, Lower Stated Complaint: toe pain Time Seen by Provider: 10/28/23 20:15 Source: patient Mode of arrival: ambulatory Limitations: no limitations History of Present Illness HPI Narrative: 78 yo female presents with toe pain, right foot 3rd digit, for approximately 1 month. She has seen her PCP about this and been on 2 courses of oral antibiotics. No trauma. She states she can't take ibuprofen because of her hypertension (?) and underlying kidney issues. No history of diabetes. Non smoker. She describes it as being sore and shooting pain. Related Data Home Medications Medication Instructions Recorded Confirmed aspirin 81 mg chewable tablet 81 mg PO DAILY 06/21/22 10/21/23 cholecalciferol (vitamin D3) 50 50 mcg PO DAILY 06/21/22 10/21/23 mcg (2,000 unit) tablet (Vitamin D3) Allergies Allergy/AdvReac Type Severity Reaction Status Date / Time No Known Allergies Allergy Verified 10/28/23 19:44 [facility] Past Medical History Medical History (Updated 11/01/23 @ 10:22 by Zarina Malik MD) Anxiety Breast cancer screening by mammogram CHF (congestive heart failure), NYHA class II Chronic GERD CKD (chronic kidney disease) stage 4, GFR 15-29 ml/min Close exposure to COVID-19 virus COPD (chronic obstructive pulmonary disease) Essential hypertension HLD (hyperlipidemia) Hypertension Kidney disease Peripheral vascular disease Wrist fracture, left Wrist pain Surgical History Surgical History H/O cataract extraction History of intravascular stent placement History of surgery Right leg artery surgery Family History Family History Father Cerebrovascular accident, Onset Age: 49 History of blood clots Kidney disorder Hypertension Mother Asthma Diabetes mellitus Sibling Congestive heart failure Social History Social History (Updated 10/21/23 @ 14:40 by Linda Luna [facility]) Social History: She lives with her son and she is . 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 She has no power senior trial attorney. Code status full code Smoking packs per day: 2 Smoking cigarettes per day: 40.0 Years smoked: 30 Smoking pack-years: 60.00 Smoking status: Former smoker Tobacco type: cigarettes Second hand tobacco smoke exposure: Yes Smoking end date: 07/26/13 Alcohol intake: current Drinks per week: 0 Substance use: never Substance use type: marijuana Gender identity (if verbalized by the patient): Female Spiritual care concerns: No Exam Narrative: GENERAL: Well-appearing, well-nourished, and in no acute distress. HEAD: Normocephalic, atraumatic. EYES: Non injected, non icteric ENT: Nares clear, no rhinorrhea or epistaxis. NECK: Supple. CHEST: non labored, speaking in full sentences. No respiratory distress. HEART: Regular rate and rhythm. Palpable DP pulse. ABDOMEN: Soft, nondistended. EXTREMITIES: Normal range of motion. No pedal edema. 3rd digit of right foot is edematous with bluish discoloration. No bulla. No palpable tophi but TTP. SKIN: Warm, dry, no rash. NEURO: No focal deficits. Alert and oriented x3. PSYCH: Normal mood and affect. Course Vital Signs Vital signs: Vital Signs Temperature 97.0 F L 10/28/23 19:39 Pulse Rate 59 L 10/28/23 19:39 Respiratory Rate 20 10/28/23 19:39 Blood Pressure 174/55 H 10/28/23 19:39 Pulse Oximetry 99 10/28/23 19:39 Oxygen Delivery Room Air 10/28/23 19:39 Temperature 98 F 10/28/23 22:49 Pulse Rate 68 10/28/23 22:49 Respiratory Rate 15 10/28/23 22:49 Blood Pressure 126/72 10/28/23 22:49 Pulse Oximetry 99 10/28/23 22:49 Oxygen Delivery Room Air 10/28/23 19:39
[2023-10-28] MEDS: ACETAMINOPHEN 500 MG TABLET 1000 MG PO (21:35)
[2023-10-28 22:30] LABS: Uric Acid 12.7 mg/dL (2.5-7.5)
[2023-10-28 22:49] VITALS: BP 126/72; PULSE 68; RESP 15; TEMP 36.6; O2SAT 99
[2023-10-29] MEDS: ACETAMINOPHEN 325 MG TABLET 650 MG PO (00:15)
[2023-10-29] MEDS: COLCHICINE 0.6 MG TABLET 1.2 MG PO (00:16)
== END 2023-10-29 00:26 | disposition home or self-care (01) ==
PROVIDERS: Emergency Provider Student in an Organized Health Care Education/Training Program; PCP Internal Medicine
DX: M10.9 Gout, unspecified (principal); I50.9 Heart failure, unspecified; I13.0 Hypertensive heart and chronic kidney disease with heart failure and stage 1 through stage 4 chronic kidney disease, or unspecified chronic kidney disease; N18.4 Chronic kidney disease, stage 4 (severe); I73.9 Peripheral vascular disease, unspecified; J44.9 Chronic obstructive pulmonary disease, unspecified; E78.5 Hyperlipidemia, unspecified; Z87.891 Personal history of nicotine dependence; Z98.49 Cataract extraction status, unspecified eye; Z79.82 Long term (current) use of aspirin; M89.571 Osteolysis, right ankle and foot
CPT/HCPCS: 36415; 73660; 84550; 99283; A9270

== ENCOUNTER 2023-12-23 08:01 | Outpatient (CLI) | payer MEDICARE, SELFPAY ==
[2023-12-23 13:19] LABS: Albumin Level 3.8 g/dL (3.5-5.1); Anion Gap 3 mmol/L (4-12); Blood Urea Nitrogen 42 mg/dL (7-17); Calcium 9.5 mg/dL (8.4-10.2); Carbon Dioxide 32 mmol/L (22-30); Chloride 101 mmol/L (98-107); Estimated Glomerular Filt Rate 22; Glucose 83 mg/dL (65-110); Phosphorus 3.5 mg/dL (2.5-4.5); Potassium 3.9 mmol/L (3.4-5.0); Sodium 136 mmol/L (137-145)
[2023-12-23 13:27] LABS: Creatinine Urine 32.2 mg/dL; Total Protein Urine Random 9 mg/dL; Ur Ttl Prot Creatinine Ratio 0.28 mg/mg (0-0.20)
[2023-12-23 13:30] LABS: Parathyroid Intact 111.4 pg/mL (7.5-53.5)
== END 2023-12-23 08:02 | disposition home or self-care (01) ==
LOC: ANHGOSHLAB 08:03
PROVIDERS: PCP Internal Medicine; Visit Provider Internal Medicine Nephrology
DX: N25.81 Secondary hyperparathyroidism of renal origin (principal); N18.4 Chronic kidney disease, stage 4 (severe); I12.9 Hypertensive chronic kidney disease with stage 1 through stage 4 chronic kidney disease, or unspecified chronic kidney disease
CPT/HCPCS: 36415; 80069; 82570; 83970; 84156

== ENCOUNTER 2023-12-24 06:46 | Emergency (ER) | payer MEDICARE, SELFPAY ==
--- NOTE | ~2023-12-24 | XR_ITS ---
Left elbow Technique: AP, oblique, and lateral views were obtained. Clinical History: Pain Findings: No acute fracture or dislocation is seen. Osseous alignment is anatomic. Joint spaces are p reserved. There is no displacement of the fat pads, and soft tissues are unremarkable. Impression: No significant abnormality seen. Reviewed, dictated and finalized at [facility]. Impression: No significant abnormality seen.
[2023-12-24 06:57] VITALS: BP 166/66; PULSE 63; RESP 15; TEMP 36.6; O2SAT 99
[2023-12-24 07:16] VITALS: BP 145/56; PULSE 55; RESP 16; O2SAT 98
[2023-12-24 07:35] VITALS: BP 138/56; PULSE 56; RESP 16; TEMP 36.7; O2SAT 97
[2023-12-24 07:46] VITALS: BP 140/66; PULSE 66; RESP 16; O2SAT 98
[2023-12-24] MEDS: HYDROcodone/acetaminophen (*CRX) 5-325 MG TABLET 1 TAB PO (07:46)
[2023-12-24 07:59] LABS: Basophils Percent Auto 0.2 % (0.2-1.2); Eosinophils Absolute Auto 0.2 K/mm3 (0-0.3); Eosinophils Percent Auto 1.3 % (0-4.4); Hematocrit 33.8 % (37.0-47.0); Hemoglobin 10.8 g/dL (12.0-15.0); Immature Granulocyte Absolute 0.13 K/mm3 (0.00-0.031); Immature Granulocyte Percent A 1.1 % (0-0.5); Lymphocytes Absolute Auto 0.89 K/mm3 (0.9-3.2); Lymphocytes Percent Auto 7.7 % (18.3-44.2); Mean Corpuscular Hemoglobin 28.9 pg (26-34); Mean Corpuscular Volume 90.4 fl (80-100); Mean Platelet Volume 9.7 fl (7.4-10.4); Monocytes Absolute Auto 1.3 K/mm3 (0.1-0.6); Monocytes Percent Auto 11.3 % (2.6-8.5); Neutrophils Absolute Auto 9.1 K/mm3 (1.3-6.7); Neutrophils Percent Auto 78.4 % (45.5-73.1); Platelet Count Result 230 k/mm3 (150-375); Red Blood Count 3.74 M/mm3 (4.2-5.4); Red Cell Distribution Width 17.2 % (11.5-14.5); White Blood Count 11.6 K/mm3 (4.5-10.0)
[2023-12-24 08:10] LABS: Anion Gap 4 mmol/L (4-12); Blood Urea Nitrogen 37 mg/dL (7-17); CRP 2.7 mg/dL (<1.0); Calcium 9.7 mg/dL (8.4-10.2); Carbon Dioxide 30 mmol/L (22-30); Chloride 105 mmol/L (98-107); Estimated CRCL calculation 20 ml/min; Estimated Glomerular Filt Rate 24; Glucose 113 mg/dL (65-110); Potassium 3.9 mmol/L (3.4-5.0); Sodium 139 mmol/L (137-145); Uric Acid 11.2 mg/dL (2.5-7.5)
[2023-12-24 08:16] VITALS: BP 141/58; PULSE 64; RESP 16; O2SAT 96
[2023-12-24 08:31] VITALS: BP 136/78; PULSE 64; RESP 16; TEMP 36.6; O2SAT 98
--- NOTE | 2023-12-24 08:32 | ED.GENADULT ---
HPI - General Adult General Chief complaint: Extremity Injury, Upper Stated complaint: pain to left arm Time Seen by Provider: 12/24/23 07:04 Source: patient Mode of arrival: ambulatory Limitations: no limitations History of Present Illness HPI narrative: 78-year-old with a history of hypertension, CKD, gout here with complaints of left elbow and shoulder pain for past 3 days. She denies any trauma. No history of fever or chills. Onset (ago): day(s) (3) Location: upper extremity (Left) Severity: moderate Quality: aching Pain Consistency: constant Relieving factors: none Exacerbating factors: movement Associated symptoms: denies other symptoms Treatments prior to arrival: none Related Data Home Medications Medication Instructions Recorded Confirmed aspirin 81 mg chewable tablet 81 mg PO DAILY 06/21/22 10/21/23 cholecalciferol (vitamin D3) 50 50 mcg PO DAILY 06/21/22 10/21/23 mcg (2,000 unit) tablet (Vitamin D3) Allergies Allergy/AdvReac Type Severity Reaction Status Date / Time No Known Allergies Allergy Verified 10/28/23 19:44 Review of Systems Review of Systems: All systems reviewed & are unremarkable except as noted in HPI and below Constitutional: Constitutional: Reports no additional constitutional complaints Eyes: Eyes: Reports no additional eye complaints ENT: Reports system reviewed and no additional complaints, except as documented Cardiovascular: Cardiovascular: Reports no additional cardiovascular complaints Respiratory: Respiratory: Reports no additional respiratory complaints Gastrointestinal: Gastrointestinal: Reports no additional gastrointestinal complaints Musculoskeletal: Musculoskeletal: Reports as per HPI Integumentary/Breasts: Skin/Breast: Reports system reviewed and no additional complaints, except as docu PMFSH Past Medical History Medical History Anxiety Breast cancer screening by mammogram CHF (congestive heart failure), NYHA class II Chronic GERD CKD (chronic kidney disease) stage 4, GFR 15-29 ml/min Close exposure to COVID-19 virus COPD (chronic obstructive pulmonary disease) Essential hypertension HLD (hyperlipidemia) Hypertension Kidney disease Peripheral vascular disease Wrist fracture, left Wrist pain Surgical History Surgical History H/O cataract extraction History of intravascular stent placement History of surgery Right leg artery surgery Family History Family History Father Cerebrovascular accident, Onset Age: 49 History of blood clots Kidney disorder Hypertension Mother Asthma Diabetes mellitus Sibling Congestive heart failure Social History Social History Social History: She lives with her son and she is . 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 Code status full code Smoking packs per day: 2 Smoking cigarettes per day: 40.0 Years smoked: 30 Smoking pack-years: 60.00 Smoking status: Former smoker Tobacco type: cigarettes Second hand tobacco smoke exposure: Yes Smoking end date: 07/26/13 Alcohol intake: current Drinks per week: 0 Substance use: never Substance use type: marijuana Gender identity (if verbalized by the patient): Female Spiritual care concerns: No Exam Narrative: GENERAL: Well-appearing, well-nourished, and in no acute distress. HEAD: Normocephalic, atraumatic. EYES: PERRLA and EOMI. ENT: Nares clear, no rhinorrhea or epistaxis. Mucous membranes moist. NECK: Supple. CHEST: Clear to auscultation. No respiratory distress. HEART: Regular rate and rhythm. No murmur heard. Normal peripheral pulses.
== END 2023-12-24 08:52 | disposition home or self-care (01) ==
PROVIDERS: Emergency Provider Family Medicine; PCP Internal Medicine
DX: M10.9 Gout, unspecified (principal); M25.522 Pain in left elbow; M25.512 Pain in left shoulder; I13.0 Hypertensive heart and chronic kidney disease with heart failure and stage 1 through stage 4 chronic kidney disease, or unspecified chronic kidney disease; I50.9 Heart failure, unspecified; N18.4 Chronic kidney disease, stage 4 (severe); E78.5 Hyperlipidemia, unspecified; J44.9 Chronic obstructive pulmonary disease, unspecified; I73.9 Peripheral vascular disease, unspecified; F41.9 Anxiety disorder, unspecified; K21.9 Gastro-esophageal reflux disease without esophagitis; Z79.82 Long term (current) use of aspirin
CPT/HCPCS: 36415; 73080; 80048; 84550; 85025; 86140; 99283; A9270

== ENCOUNTER 2024-01-30 17:02 | Emergency (ER) | payer MEDICARE, SELFPAY ==
--- NOTE | ~2024-01-30 | XR_ITS ---
EXAM: XR ankle RT min 3V DATE: 01/30/2024 18:26 HISTORY: swelling, erythema ankle joint . COMPARISON: None available. FINDINGS: Decreased mineralization. No fracture or dislocation. No lytic or blastic lesion. Achilles enthesopathy. Mild degenerative change at the ankle joint. No erosion or periosteal change. Soft tis daniel swelling about the ankle joint. IMPRESSION: No acute osseous finding in the right ankle. Reviewed, dictated and finalized at location K.
[2024-01-30 17:09] VITALS: BP 141/85; PULSE 85; RESP 18; TEMP 37.1; O2SAT 98
--- NOTE | 2024-01-30 18:14 | ED.GENADULT ---
HPI - General Adult General Chief complaint: Wound/Laceration Stated complaint: right foot pain Time Seen by Provider: 01/30/24 17:46 Source: patient Mode of arrival: ambulatory Limitations: no limitations History of Present Illness HPI narrative: This is a 78-year-old female with PMH of gout, HTN, stage 4 kidney disease who presents to the ED with chief complaint of right ankle pain, swelling and redness for the past 2 days. Reports that she noticed some pain to the right ankle joint initially 2 days ago. The pain is progressed and she feels that she cannot bear weight at this point. She also noticed some redness spreading to the lateral right ankle joint today. Denies any recent bug bite or wounds to the foot. Denies recent injection or medical procedure. No immuno compromising condition. Denies fevers, chills, nausea, vomiting, patient reports that she has had 3 of 4 separate flares of gout and her toe, shoulder and other joints this year. She has tried fixing her diet but does not take any to kind of daily allopurinol or other gout preventive. She states today's presentation is very similar to recent presentations of gout. Related Data Home Medications Medication Instructions Recorded Confirmed aspirin 81 mg chewable tablet 81 mg PO DAILY 06/21/22 12/28/23 cholecalciferol (vitamin D3) 50 50 mcg PO DAILY 06/21/22 12/28/23 mcg (2,000 unit) tablet (Vitamin D3) nebivolol 5 mg tablet 5 mg PO DAILY 12/28/23 12/28/23 Allergies Allergy/AdvReac Type Severity Reaction Status Date / Time No Known Allergies Allergy Verified 01/30/24 17:03 Review of Systems Review of Systems: All systems as dictated in [facility] Past Medical History Medical History Anxiety Breast cancer screening by mammogram CHF (congestive heart failure), NYHA class II Chronic GERD CKD (chronic kidney disease) stage 4, GFR 15-29 ml/min Close exposure to COVID-19 virus COPD (chronic obstructive pulmonary disease) Essential hypertension HLD (hyperlipidemia) Hypertension Kidney disease Peripheral vascular disease Wrist fracture, left Wrist pain Surgical History Surgical History H/O cataract extraction History of intravascular stent placement History of surgery Right leg artery surgery Family History Family History Father Cerebrovascular accident, Onset Age: 49 History of blood clots Kidney disorder Hypertension Mother Asthma Diabetes mellitus Sibling Congestive heart failure Social History Social History Social History: She lives with her son and she is . 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 She has no power trust and estates attorney. Code status full code Smoking packs per day: 2 Smoking cigarettes per day: 40.0 Years smoked: 30 Smoking pack-years: 60.00 Smoking status: Former smoker Tobacco type: cigarettes Second hand tobacco smoke exposure: Yes Smoking end date: 07/26/13 Alcohol intake: current Drinks per week: 0 Substance use: never Substance use type: marijuana Gender identity (if verbalized by the patient): Female Spiritual care concerns: No Exam Narrative: GENERAL: Well-appearing, well-nourished, and in no acute distress. HEAD: Normocephalic, atraumatic. EYES: PERRLA and EOMI. ENT: Nares clear, no rhinorrhea or epistaxis. Mucous membranes moist. Oropharynx without tonsillar hypertrophy exudate or other lesions. NECK: Supple. No adenopathy or masses. CHEST: No respiratory distress. Clear to auscultation. No wheezes rales or rhonchi HEART: Regular rate and rhythm. No murmur heard. Normal peripheral pulses. ABDOMEN: So
[2024-01-30 18:37] LABS: Basophils Percent Auto 0.3 % (0.2-1.2); Eosinophils Absolute Auto 0.1 K/mm3 (0-0.3); Eosinophils Percent Auto 0.5 % (0-4.4); Hematocrit 33.2 % (37.0-47.0); Hemoglobin 10.7 g/dL (12.0-15.0); Immature Granulocyte Absolute 0.16 K/mm3 (0.00-0.031); Immature Granulocyte Percent A 1.2 % (0-0.5); Lymphocytes Absolute Auto 1.19 K/mm3 (0.9-3.2); Lymphocytes Percent Auto 9.2 % (18.3-44.2); Mean Corpuscular HGB Conc 32.2 g/dl (32-36); Mean Corpuscular Hemoglobin 28.7 pg (26-34); Mean Platelet Volume 10.3 fl (7.4-10.4); Monocytes Absolute Auto 1.5 K/mm3 (0.1-0.6); Monocytes Percent Auto 11.7 % (2.6-8.5); Neutrophils Absolute Auto 9.9 K/mm3 (1.3-6.7); Neutrophils Percent Auto 77.1 % (45.5-73.1); Platelet Count Result 243 k/mm3 (150-375); Red Blood Count 3.73 M/mm3 (4.2-5.4); Red Cell Distribution Width 16.8 % (11.5-14.5); White Blood Count 12.9 K/mm3 (4.5-10.0)
[2024-01-30 18:50] LABS: Alanine Aminotransferase 15 U/L (6-35); Alkaline Phosphatase 90 U/L (38-126); Anion Gap 7 mmol/L (4-12); Aspartate Amino Transferase 26 U/L (14-36); Bilirubin,Total 0.7 mg/dL (0.2-1.3); Blood Urea Nitrogen 32 mg/dL (7-17); Calcium 9.7 mg/dL (8.4-10.2); Carbon Dioxide 29 mmol/L (22-30); Chloride 104 mmol/L (98-107); Estimated Glomerular Filt Rate 24; Glucose 139 mg/dL (65-110); Potassium 3.5 mmol/L (3.4-5.0); Sodium 140 mmol/L (137-145); Uric Acid 11.3 mg/dL (2.5-7.5)
[2024-01-30] MEDS: methylPREDNISolone SOD SUCC 125 MG VIAL IV PUSH (18:53)
[2024-01-30 18:56] VITALS: BP 143/62; PULSE 61; RESP 17; O2SAT 100
[2024-01-30 19:00] LABS: CRP 21.6 mg/dL (<1.0)
--- NOTE | 2024-01-30 19:31 | PC.NURSE ---
Report received from ANALIA Hall. Assumed care of patient at this time.
== END 2024-01-30 20:02 | disposition home or self-care (01) ==
PROVIDERS: Emergency Provider Physician Assistant; PCP Internal Medicine
DX: M10.9 Gout, unspecified (principal); I12.9 Hypertensive chronic kidney disease with stage 1 through stage 4 chronic kidney disease, or unspecified chronic kidney disease; N18.4 Chronic kidney disease, stage 4 (severe); I13.0 Hypertensive heart and chronic kidney disease with heart failure and stage 1 through stage 4 chronic kidney disease, or unspecified chronic kidney disease; I50.9 Heart failure, unspecified; J44.9 Chronic obstructive pulmonary disease, unspecified; E78.5 Hyperlipidemia, unspecified; I73.9 Peripheral vascular disease, unspecified; Z98.49 Cataract extraction status, unspecified eye; Z87.891 Personal history of nicotine dependence; Z79.82 Long term (current) use of aspirin; Z79.899 Other long term (current) drug therapy
CPT/HCPCS: 36415; 73610; 80053; 84550; 85025; 86140; 96374; 99284; J2919

== ENCOUNTER 2024-04-17 08:09 | Outpatient (CLI) | payer MEDICARE, SELFPAY ==
[2024-04-17 15:08] LABS: Anion Gap 9 mmol/L (4-12); Blood Urea Nitrogen 36 mg/dL (7-17); Calcium 9.8 mg/dL (8.4-10.2); Carbon Dioxide 28 mmol/L (22-30); Chloride 97 mmol/L (98-107); Estimated Glomerular Filt Rate 26; Glucose 70 mg/dL (65-110); Phosphorus 3.4 mg/dL (2.5-4.5); Potassium 3.3 mmol/L (3.4-5.0); Sodium 134 mmol/L (137-145)
[2024-04-17 15:23] LABS: Vitamin D 25 Hydroxy 71.9 ng/mL
[2024-04-17 15:29] LABS: Creatinine Urine 21.9 mg/dL; Total Protein Urine Random 14 mg/dL; Ur Ttl Prot Creatinine Ratio 0.64 mg/mg (0-0.20)
[2024-04-17 16:06] LABS: Parathyroid Intact 70.1 pg/mL (14.5-75.2)
== END 2024-04-17 08:10 | disposition home or self-care (01) ==
PROVIDERS: PCP Internal Medicine; Visit Provider Internal Medicine Nephrology
DX: I12.9 Hypertensive chronic kidney disease with stage 1 through stage 4 chronic kidney disease, or unspecified chronic kidney disease (principal); N18.4 Chronic kidney disease, stage 4 (severe); N25.81 Secondary hyperparathyroidism of renal origin; E55.9 Vitamin D deficiency, unspecified
CPT/HCPCS: 36415; 80069; 82306; 82570; 83970; 84156

== ENCOUNTER 2024-08-21 08:19 | Outpatient (CLI) | payer MEDICARE, SELFPAY ==
--- OUTSIDE RECORDS SUMMARY | 2024-08-21 08:31 | XMS_ITS | Continuity of Care Document ---
Author Name [facility] Address [address] [place] [address] [facility] Care Team Providers Care Intranet Developer Name Role Phone [facility] Unavailable Unavailable Problems Problem Status Onset Date Problem Type Date of Resolution Comme nts Source Peripheral vascular disease (disorder) Active Condition Carotid artery stenosis (disorder) Active Condition Hypertensive disorder, systemic arterial (disorder) Active Condition Encounters Location Location Details Encounter Type Encounter Number Reason For Visit Attending Provider ADM Date DC Date Status Source [facility] NO TECHBILL [id number] MTH FU/CAROTI D,KANG 11:30 PM/SHIRLEY 11:50 Ye Morse Cancel [facility] NO TECHBILL [id number] MTH FU/CAROTI D,KANG 11:30 PM/SHIRLEY 11:50 Shirley Crowley Cancel [facility] NO TECHBILL [id number] MTH FU/CAROTI D,KANG 11:30 PM Shirley Crowley Cancel [facility] SCU [facility] NO TECHBILL [id number] MTH FU/CAROTI D,KANG 11:30 PM Ye Morse Cancel [facility] [place] [facility] NO TECHBILL [id number] month carotid Shirley Crowley Cancel [facility] SCU [facility] NO TECHBILL [id number] 6 month carotid, KANG see Shirleywilma Saldaña Cancel [facility]U [facility] NO TECHBILL [id number] MO FU CAROTID Shirley Crowley Cancel [facility]U [facility] NO TECHBILL [id number] MO FU CAROTID Ye Morse Cancel [facility]U [facility] NO TECHBILL [id number] MO FU CAROTID Shirley Crowley [facility]ancel [facility] [place] [facility] NO TECHBILL [id number] MO FU CAROTID Ye Morse Cancel [facility] SCU SCU [facility] NO TECHBILL [id number] 6 MO FU CAROTID Shirley Keo [facility] NO TECHBILL [id number] [place] FU CAROTID Ye [facility] NO [facility]CH[facility]LL [id number] 6 MTH FU/CAROTI D,KANG 11:30 PM/SHIRLEY 11:50 Shirley Crowley [facility] NO TECHBILL [id number] 6 MTH FU/CAROTI D,KANG 11:30 PM/SHIRLEY 11:50 Ye Morse [facility] NO TECHBILL [id number] YR FU ABIS,GILLILAND TID,LLE ARTERIAL DUPLEX Shirley Crow[facility]CH[facility]LL [id number] YR FU CAROTID/A BIS/LLE ARTERIAL Ye Morse [facility]
--- OUTSIDE RECORDS SUMMARY | 2024-08-21 08:31 | XMS_ITS | Patient Health Record ---
Author Organization [facility] Address [address] [facility] [address] [place], [place] [address] Care Team Providers Care Senior Interactive Developer Name Role Phone [facility] Rafita Unavailable Unavailable ADOLFO FORD Unavailable [phone] Allergies No Known Allergies Reason For Referral No Information Medications Medication SIG (Take, Route, Frequency, Duration) Notes Start Date End Date Status Furosemide 40 MG 1 tablet Orally Once a day Active Atorvastatin Calcium 20 MG 1 tablet Oral ly Once a day Active Calcitriol 0.25 MCG 1 capsule Orally Thr ee times a Week Active Clopidogrel Bisulfate 75 MG 1 tablet Ora lly Once a day Active hydrALAZINE HCl 25 MG 1 tablet with food Orally Three times a day Active Nebivolol HCl 10 MG 1 tablet Orally Once a day Active cloNIDine 0.1 MG/24HR 1 patch to skin Transdermal Active Norvasc 10 MG 1 tablet Orally Once a day Active Vital Signs Height-cm 165.1 cm 02/07/2024 Weight-kg 63.5 kg 02/07/2024 Height 65 in 02/07/2024 Weight 140 lbs 02/07/2024 BMI 23.29 kg/m2 02/07/2024 Encounters Encounter Location Date Provider Diagnosis [facility] [place] [address] [place] [address] [id number] 11/08/2023 ADOLFO FORD Idiopathic gout, 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 ; Plantar fascial fibromatosis M72.2 ; Pain in right foot M79.671 and Left foot pain M79.672 [facility] [place] [address] [place] [address] [id number] 11/22/2023 ADOLFO SNOOK Idiopathic gout, 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 ; Plantar fascial fibromatosis M72.2 and Left foot pain M79.672 [facility] [place] [address] [place] [address] [id number] 12/06/2023 ADOLFO SNOOK Plantar fascial fibromatosis M72.2 and Left foot pain M79.672 [facility] [place] [address] [place] [address] [id number] 01/10/2024 ADOLFO SNOOK Acquired keratosis [keratoderma] palmaris et plantaris L85.1 ; Plantar fascial fibromatosis M72.2 and Pain in right foot M79.671 [facility] [place] [address] [place] [address] [id number] 02/07/2024 ADOLFO SNOOK Acquired keratosis [keratoderma] palmaris et plantaris L85.1 ; Pain in right foot M79.671 and Other hammer toe(s) (acquired), right foot M20.41 Assessments Encounter Date Diagnosis (ICD Code) Assessment Notes Treatment Notes Treatment Clinical Notes Section Notes 11/08/2023 Idiopathic gout, 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 I stressed the importance of staying hydrated and avoiding food rich in purines. I provided the patient with gout information education sheet and a purine restricted diet. Kenalog Injection: Following skin prep, a total of 3 ccs of a 1-1-1 mix of 0.5% marcaine plain, 1% lidocaine plain, and Kenalog was injected to the right 3rd digit 11/08/2023 Plantar fascial fibromatosis (ICD-10 - M72.2) Plantar Fascitis: I discussed anti-inflammatory treatment options and various means of pronation control with the patient. I educated the patient on icing and stretching, supportive shoegear, and the use of orthotic devices. Kenalog Injection: Following skin prep, a total of 3 ccs of a 1-1-1 mix of 0.5% marcaine plain, 1% lidocaine plain, and Kenalog was injected to the left heel. Orthotic Recommendation: I recommended functional orthotics for the patient. PowerStep Inserts: The patient was dispensed and fitted with over the counter arch supports. The patient was educated on their use and effect. All questions were answered. 12/06/2023 Plantar fascial fibromatosis (ICD-10 - M72.2) Plantar Fascitis: I discussed anti-inflammatory treatment options and various means of pronation control with the patient. I educated the patient on icing and stretching, supportive shoegear, and the use of orthotic devices. Kenalog Injection: Following skin prep, a total of 3 ccs of a 1-1-1 mix of 0.5% marcaine plain, 1% lidocaine plain, and Kenalog was injected to the left heel. Continue PowerStep Inserts 12/06/2023 Left foot pain (ICD-10 - M79.672) 01/10/2024 Acquired keratosis [keratoderma] palmaris et plantaris (ICD-10 - L85.1) Hyperkeratosis: The skin was prepped with isopropyl alcohol. Using a 15-blade scalpel, the hyperkeratotic skin lesions were sharply debrided down to healthy appearing skin. Padding: Application of accomodative padding to offload pressure from area. 01/10/2024 Plantar fascial fibromatosis (ICD-10 - M72.2) Plantar Fascitis: I discussed anti-inflammatory treatment options and various means of pronation control with the patient. I educated the patient on icing and stretching, supportive shoegear, and the use of orthotic devices. 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 I stressed the importance of staying hydrated and avoiding food rich in purines. I provided the patient with gout information education sheet and a purine restricted diet. Water: Advised patient to drink plenty of water and stay hydrated. 11/22/2023 Plantar fascial fibromatosis (ICD-10 - M72.2) Plantar Fascitis: I discussed anti-inflammatory treatment options and various means of pronation control with the patient. I educated the patient on icing and stretching, supportive shoegear, and the use of orthotic devices. Kenalog Injection: Following skin prep, a total of 3 ccs of a 1-1-1 mix of 0.5% marcaine plain, 1% lidocaine plain, and Kenalog was injected to the left heel. Continue PowerStep Inserts 02/07/2024 Acquired keratosis [keratoderma] palmaris et plantaris (ICD-10 - L85.1) Hyperkeratosis: The skin was prepped with isopropyl alcohol. Using a 15-blade scalpel, the hyperkeratotic skin lesions were sharply debrided down to healthy appearing skin. Padding: Application of accomodative padding to offload pressure from area. 02/07/2024 Pain in right foot (ICD-10 - M79.671) 02/07/2024 Other hammer toe(s) (acquired), right foot (ICD-10 - M20.41) Hammertoe Deformity: Discussed various treatments for hammer toes with the patient . Discussed conservative care consisting of padding, wider shoes, anti-inflammatorie s, and orthotics. Discussed surgical treatment options and answered all questions about the intra-operative and post-operative treatment course. 01/10/2024 Pain in right foot (ICD-10 - M79.671) 11/08/2023 Pain in right foot (ICD-10 - M79.671) 11/08/2023 Left foot pain (ICD-10 - M79.672) 11/22/2023 Left foot pain (ICD-10 - M79.672) Plan Of Treatment No Information Insurance Providers Payer Name Payer Address Payer Phone Subscriber Number Group Number Insured Name Patient Relationship to Insured Coverage Start Date Coverage End Date [facility] [address] [address] [place], [place] [phone] [id number] Veronica Bowles Self - patient is the insured Medical (General) History Medical History History ICD Code Leg/Feet cramps Liver disease hypertension varicose veins Surgical History Surgery Date(Month/Year) Left Leg Right Leg
--- OUTSIDE RECORDS SUMMARY | 2024-08-21 08:31 | XMS_ITS | Referral Summary ---
Author Organization [facility] Address [address] [place] [address] Care Team Providers Care Machine Joint Cutter Name Role Phone Rafita Carrion DO Primary Care Provider [phone] Source Comments [facility],non-owned Affiliates and Associated Physician Practices is amultiple site organization consisting of ambulatory clinics and hospital sitesin [place], [place], [place] and [place]. This disclosure is being madepursuant to the Care Everywhere program and may not contain all information available regarding this patient. Last updated 18.[facility] Allergies No known active allergies Medications * Be aware that medications may not be up to date on this document. Alwaysverify current medications with the patient. Medication Sig Dispensed Refills Start Date End Date Status atorvastatin (LIPITOR) 20 MG tablet Take 1 (one) tablet by mouth once daily 2 01/07/2019 Active clopidogrel (PLAVIX) 75 MG tablet Take 1 (one) tablet by mouth once daily 2 01/07/2019 Active BYSTOLIC 20 MG tablet Take 1 (one) tablet by mouth once daily 2 01/07/2019 Active hydrALAZINE (Apresoline) 25 MG tablet Take 1 (one) tablet by mouth 3 times daily Active amLODIPine (Norvasc) 10 MG tablet Take 1 (one) tablet by mouth once daily Active furosemide (Lasix) 40 MG tablet Take 1 (one) tablet by mouth once daily Active cloNIDine (Catapres) 0.1 MG tablet Take 1 (one) tablet by mouth 2 times daily Active Active Problems Problem Noted Date Diagnosed Date Claudication 02/13/2019 Carotid artery disease without cerebral infarcti on 02/13/2019 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 02/13/2019 Carotid stenosis, bilateral 02/13/2019 PAD (peripheral artery disease) 01/16/2019 Immunizations Name Administration Dates Next Due INFLUENZA VACCINE 03/30/2022 Social History Tobacco Use Types Packs/Day Years Used Date Smoking Tobacco: Former Cigarettes Q uit: 2013 Smokeless Tobacco: Never Tobacco Cessation:Counseling Given: No Sex and Gender Information Value Date Recorded Sex Assigned at Not on file Gender Identity Not on file Sexual Orientation Not on file Last Filed Vital Signs Vital Sign Reading Time Taken Comments Blood Pressure 135/75 11/09/2023 1:20 PM CDT Pulse 54 11/09/2023 1:20 PM CDT Temperature 36.7 ??C (98 ??F) 11/09/2023 1:20 PM CDT Respiratory Rate 18 11/09/2023 1:20 PM CDT Oxygen Saturation 99% 11/09/2023 1:20 PM CDT Inhaled Oxygen Concentration - - Weight 63.8 kg (140 lb 9.6 oz) 11/09/2023 1:20 P M CDT Height 165.1 cm (5' 5 ) 11/09/2023 1:20 PM CDT Body Mass Index 23.4 11/09/2023 1:20 PM CDT Functional Status Functional Status Response Date of Assess ment Is person deaf or have serious hearing difficult y? No 09/01/2022 Is person blind or have serious difficulty seein g? No 09/01/2022 Does person have serious dif ficulty walking/climbing stairs? No 09/01/2022 Does person have difficulty dressing/bathing? No 09/01/2022 Does person have difficulty doing errands alone? No 09/01/2022 Cognitive Status Response Date of Assessm ent Does person have difficulty concentrating/remembering/making decisions? No 09/01/2022 Plan of Treatment Upcoming Encounters Date Type Department Care Team (Late st Contact Info) Description 11/07/2024 2:00 PM CDT Appointment [facility] [address] [place] [address] Narayan Flores MD [address] [facility] [address] [facility] [place] [place] [address] 11/07/2024 3:00 PM CDT Appointment [facility] [address] [place] [address] Narayan Flores MD [address] [place] [address] 11/07/2024 4:15 PM CDT Office Visit [facility] [address] [facility] [place] [address] Narayan Flores MD [address] [facility] [address] [place] [address] Insurance Payer Benefit Plan / Group Subscriber ID Effective Dates Phone Address Type [facility] MANAGED MEDICARE ADV UHC MEDICARE ADV HMO/POS [id number] 07/26/2020-Pres ent [address] [address] [place] [address] Medicare-Man aged Care UHC MANAGED MEDICARE ADV UHC MEDICARE ADV HMO/POS [id number] 07/26/2020-Pres ent [address] [address] [place] [address] Medicare-Man aged Care MEDICARE WPS MEDICARE PART B [id number] 02/24/2012-Pres ent [address] [address] [place] [address] Medicare MEDICARE WPS MEDICARE PART B [id number] 02/24/2012-Pres ent [address] [address] [place] [address] Medicare MEDICARE WPS MEDICARE PART B [id number] 02/24/2012-Pres ent [address] [address] [place] [address] Medicare MEDICARE WPS MEDICARE PART B [id number] 02/24/2012-Pres ent [address] [address] [place] [address] Medicare MEDICARE WPS MEDICARE PART B [id number] 02/24/2012-Pres ent [address] [address] [place] [address] Medicare MEDICARE WPS MEDICARE PART B [id number] 02/24/2012-Pres ent [address] [address] [place] [address] Medicare MEDICARE WPS MEDICARE PART B [id number] 02/24/2012-Pres ent [address] [address] [place] [address] Medicare MEDICARE WPS MEDICARE PART B [id number] 02/24/2012-Pres ent [address] [address] [place] [address] Medicare MEDICARE WPS MEDICARE PART B [id number] 02/24/2012-Pres ent [address] [address] [place] [address] Medicare MEDICARE WPS MEDICARE PART B [id number] 02/24/2012-Pres ent [address] [address] [place] [address] Medicare MEDICARE WPS MEDICARE PART B [id number] 02/24/2012-Pres ent [address] [address] [place] [address] Medicare MEDICARE WPS MEDICARE PART B [id number] 02/24/2012-Pres ent [address] [address] [place] [address] Medicare (Home) [address] [place] [address] Zaira Bowles Personal/Family Self 1945 (Home) [address] [place] [address] ZAIRA BOWLES Personal/Family Other [address] [place] [address] ZAIRA BOWLES Personal/Family Other [address] [place] [address] ALIDAZAIRA Personal/Family Other [address] [place] [address] BOWLESZAIRA Personal/Family Other [address] [place] [address] ALIDAZAIRA Personal/Family Other [address] [place] [address] ALIDAZAIRA Personal/Family Other [address] [place] [address] ALIDAZAIRA Personal/Family Other [address] [place] [address] ZAIRA BOWLES Personal/Family Other [address] [place] [address] ZAIRA BOWLES Personal/Family Other [address] [place] [facility] ZAIRA BOWLES Personal/Family Other [address] [place] [address] ZAIRA BOWLES Personal/Family Other [address] [place] [address] ZAIRA BOWLES Personal/Family Other [address] [place] [address] Care Teams Machine Joint Cutter Relationship Specialty Start Date End Date Rafita Carrion DO PCP - General 08/17/22
--- OUTSIDE RECORDS SUMMARY | 2024-08-21 08:31 | XMS_ITS ---
Author Organization [facility] Address [address] [place], [place] [id number] Care Team Providers Care Barrel Stave Inspector Name Role Phone Delphinesameer Rafita Unavailable Unavailable ADOLFO FORD Unavailable [phone] REASON FOR VISIT The pain has never gone 100% away with the injections. However, she no longer has the terrible first step in the morning pain. She now has pain by the end of the day in her left heel. It is better, just not gone Medications Medication SIG (Take, Route, Frequency, Duration) Notes Start Date End Date Status Atorvastatin Calcium 20 MG 1 tablet Oral ly Once a day Active Furosemide 40 MG 1 tablet Orally Once a day Active Calcitriol 0.25 MCG 1 capsule Orally Thr ee times a Week Active cloNIDine 0.1 MG/24HR 1 patch to skin Transdermal Active Nebivolol HCl 10 MG 1 tablet Orally Once a day Active Norvasc 10 MG 1 tablet Orally Once a day Active hydrALAZINE HCl 25 MG 1 tablet with food Orally Three times a day Active Clopidogrel Bisulfate 75 MG 1 tablet Ora lly Once a day Active Vital Signs Height 65 in 12/06/2023 Weight 140 lbs 12/06/2023 BMI 23.29 kg/m2 12/06/2023 Height-cm 165.1 cm 12/06/2023 Weight-kg 63.5 kg 12/06/2023 Encounters Encounter Location Date Provider Diagnosis [facility] [place] [address] [place], [place] [id number] 12/06/2023 ADOLFO FORD Plantar fascial fibromatosis M72.2 and Left foot pain M79.672 Assessments Encounter Date Diagnosis (ICD Code) Assessment Notes Treatment Notes Treatment Clinical Notes Section Notes 12/06/2023 Plantar fascial fibromatosis (ICD-10 - M72.2) Plantar Fascitis: I discussed anti-inflammato ry treatment options and various means of pronation [...] 12/06/2023 Left foot pain (ICD-10 - M79.672) Plan Of Treatment Treatment Notes Assessment Notes Plantar fascial fibromatosis Plantar Fascitis: I discussed anti-inflammatory treatment options [...] to the left heel. Continue PowerStep Inserts Next Appt Details Follow Up: 3 Weeks, Reason: See how 3rd cortisone injection helped Progress Notes * Canelo BOWLESjosemanuelDOB:1945 (78 yo F)Acc No.[id number]:12/06/2023 Patient:?Veronica BOWLES Provider:?Adolfo Ford DPM :1945???Age:78 Y???Sex:Female D ate:12/06/2023 [address] [facility] Subjective: * Chief Complaints: * ???1. The pain has never mariann e 100% away with the injections. However, she no longer has the terrible first step in the morning pain. She now has pain by the end of the day in her left heel. It is better, just not gone. * HPI: ???HPI:?Follow Up Visit?Patient presents for follow up visit for an injection on the , . left. , Patient states their problem is, improving. Pt states the injection helped. Pt states the plantar fasc pain is never going to go away., MA: As.? * ROS:?General / Constitutional:?Patient denies?chills, fever, weakness, night sweats.?Musculoskeletal:?Patient denies?childhood foot problems, weakness.?Patient complains of?heel pain, arch pain, joint pain, gout.?Peripheral Vascular:?Patient denies?ulceration of feet, cold extremities.?Skin:?Patient denies?ulcerations, discoloration.?Neurologic:?Patient denies?balance difficulty, confusion, difficulty speaking, dizziness.? * Medical History:? * Medications:?Taking Furosemi de 40 MG Tablet 1 tablet Orally Once a day , Taking Atorvastatin Calcium 20 MG Tablet 1 tablet Orally Once a day , Taking Nebivolol HCl 10 MG Tablet 1 tablet Orally Once a day , Taking cloNIDine 0.1 MG/24HR Patch Weekly 1 patch to skin Transdermal , Taking Calcitriol 0.25 MCG Capsule 1 capsule Orally Three times a Week , Taking Norvasc 10 MG Tablet 1 tablet Orally Once a day , Taking Clopidogrel Bisulfate 75 MG Tablet 1 tablet Orally Once a day , Taking hydrALAZINE HCl 25 MG Tablet 1 tablet with food Orally Three times a day Objective: * Vitals:?Wt: 140 lbs, Wt-k.5 kg, Ht: 65 in, Ht-cm: 165.1 cm, BMI: 23.29 Index, Body Surface Area: 1.7. * Examination: ???Constitutional: ?Constitutional?The patient is awake, alert, well developed, well groomed and well nourished..?Dermatologic: ?Skin findings:?Skin is warm, dry, supple with no breaks in the skin. The erythema to the right 3rd digit has resolved.?Vascular: ?Dorsalis pedis pulse:?2/4, bilateral.?Posterior tibial pulse:?2/4, bilaterally.?Capillary refill:?less than 3 seconds.?Edema:?No edema, bilateral.?Neurologic: ?Gross sensation?Gross sensation is intact to light touch..?Musculoskeletal: ?Muscle Strength?Muscle strength is 5/5 in regards to dorsiflexion, plantarflexion, inversion, and eversion in bilateral lower extremities..?Pain on palpation?Pain on palpation to the medial band of the left plantar fascia near its attachment to the calcaneus. No pain on palpation to the entire right 3rd digit.? Assessment: * Assessment: 1.?Plantar fascial fibromato sis - M72.2 (Primary)?2.?Left foot pain - M79.672? Plan: * Treatment: * Procedure Codes:? INJ T ENDON SHEATH/LIGAMENT, Modifiers: LT * Follow Up:?3 Weeks (Reason: See how 3rd cortisone injection helped) * Billing Information: * Visit Code:? 70388 Office Visit, Est Pt., Level 3. Modifiers: 25 * Procedure Codes:? INJ TENDON SHEATH/LIGAMENT. 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 left. , Patient states their problem is, improving. Pt states the injection helped. Pt states the plantar fasc pain is never going to go away., MA: As Examination Category Sub-Category Detail Notes Category Not es Dermatologic Skin findings: Skin is warm, dr chambers, supple with no breaks in the skin. The erythema to the right 3rd digit has resolved Neurologic Gross sensation Gross sensation is intact to light touch. Vascular Dorsalis pedis pulse: 2/4, bilateral Edema: No edema, bilateral Capillary refill: less than 3 seconds Posterior tibial pulse: 2/4, bilaterally Musculoskeletal Muscle Strength Muscle strength is 5/5 in regards to dorsiflexion, plantarflexion, inversion, and eversion in bilateral lower extremities. Pain on palpation Pain on palpation to the medial band of the left plantar fascia near its attachment to the calcaneus. No pain on palpation to the entire right 3rd digit Constitutional Constitutional The patient is a wake, alert, well developed, well groomed and well nourished.
--- OUTSIDE RECORDS SUMMARY | 2024-08-21 08:31 | XMS_ITS | Clinical Summary ---
Author Organization [facility] [facility] Address [address] [place] [address] Care Team Providers Care Labor Employment Associate Name Role Phone Rafita Carrion DO Primary Care Provider [phone] Source Comments [facility],non-owned Affiliates and Associated Physician Practices is amultiple site organization consisting of ambulatory clinics and hospital sitesin [place], [place], [place] and [place]. This disclosure is being madepursuant to the Care Everywhere program and may not contain all information available regarding this patient. 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 02/13/2019 Carotid stenosis, bilateral 02/13/2019 PAD (peripheral artery disease) 01/16/2019 Immunizations Name Administration Dates Next Due INFLUENZA VACCINE 03/30/2022 Family History Relation Name Status Comments Father Stroke, Kidney Failure Mother Emphysema Social History Tobacco Use Types Packs/Day Years [...] Mass Index 23.4 11/09/2023 1:20 PM CDT Plan of Treatment Upcoming Encounters Date Type Department Care Team (Late st Contact Info) Description 11/07/2024 2:00 PM CDT Appointment [facility] [address] [place] [phone] Narayan Flores MD [address] [place] [address] 2L DIV [place] [address] 11/07/2024 3:00 PM CDT Appointment [facility] [address] [place] [phone] Narayan Flores MD [address] [place] [address] 2L DIV [place] [address] 11/07/2024 4:15 PM CDT Office Visit [facility] - [facility]ascular Surgery [address] [place] [address], [place] [address] Narayan Flores MD [address] [place] [address] Health Maintenance Due Date Last Done Comments BONE DENSITY TESTING 1945 HEPATITIS C SCREENING 03/11/1965 DTAP/TDAP/TD VACCINES (1 - Tdap) 1966 PNEUMOCOCCAL VACCINE 50+ (1 of 1 - PCV) 1997 ZOSTER VACCINE (1 of 2) 1997 Respiratory Syncytial Virus (RSV) Vaccine Pt: or over 60 yrs (1 - 1-dose 75+ series) 2022 COVID-19 VACCINE ( - 2023-2 5 season) 2024 INFLUENZA VACCINE (#1) 2024 2, 03/28/2019 DEPRESSION SCREENING 07/26/2024 MEDICARE AWV ? CALENDAR YEAR 2024 HEPATITIS B VACCINE Aged Out No longe r eligible based on patient's age to complete this topic HIB VACCINE Aged Out No longer eligi ble based on patient's age to complete this topic HPV VACCINE Aged Out No longer eligi ble based on patient's age to complete this topic MENINGOCOCCAL (Group B) VACCINE Aged Out No longer eligible b ased on patient's age to complete this topic MENINGOCOCCAL VACCINE Aged Out No casa mimi eligible based on patient's age to complete this topic Insurance Payer Benefit Plan / Group Subscriber ID Effective Dates Phone Address Type [facility] MANAGED MEDICARE ADV [facility] MEDICARE ADV HMO/POS [id number] 07/26/2020-Pres ent [address] [address] [place] [address] Medicare-Man aged Care [facility] MANAGED MEDICARE ADV [facility] MEDICARE ADV HMO/POS [id number] 07/26/2020-Pres ent [address] [address] [place] [address] Medicare-Man aged Care MEDICARE S MEDICARE PART B [id number] 02/24/2012-Pres ent [address] [address] [place] [address] Medicare MEDICARE WPS MEDICARE PART B [id number] 02/24/2012-Pres ent [address] [address] [place] [address] Medicare MEDICARE WPS MEDICARE PART B [id number] 02/24/2012-Pres ent [address] [address] [place] [address] Medicare MEDICARE WPS MEDICARE PART B [id number] 02/24/2012-Pres ent [address] [address] [place] [address] Medicare MEDICARE WPS MEDICARE PART B [id number] 02/24/2012-Pres ent [address] [address] [place] [address] Medicare MEDICARE WPS MEDICARE PART B [id number] 02/24/2012-Pres ent [address] [address] [place] [address] Medicare MEDICARE WPS MEDICARE PART B [id number] 02/24/2012-Pres ent [address] [address] [place] [address] Medicare MEDICARE WPS MEDICARE PART B [id number] 02/24/2012-Pres ent [address] [address] [place] [address] Medicare MEDICARE WPS MEDICARE PART B [id number] 02/24/2012-Pres ent [address] [address] [place] [address] Medicare MEDICARE WPS MEDICARE PART B [id number] 02/24/2012-Pres ent [address] [address] [place] [address] Medicare MEDICARE WPS MEDICARE PART B [id number] 02/24/2012-Pres ent [address] [address] [place] [address] Medicare MEDICARE WPS MEDICARE PART B [id number] 02/24/2012-Pres ent [address] [address] [place] [address] Medicare Zaira Bowles Personal/Family Self 1945 [address] [place] [address] ALIDAAISSATOUZAIRA Personal/Family Other [address] [place] [address] ZAIRA BOWLES Personal/Family Other [address] [place] [address] BOWLES,ZAIRA Personal/Family Other [address] [place], [id number] ALIDA,ZAIRA Personal/Family Other [address] [place], [facility] ALIDA,ZAIRA Personal/Family Other [address] [place], [place] [phone] ALIDA,ZAIRA Personal/Family Other [address] [place], [facility] ALIDA,AZIRA Personal/Family Other [address] [place], [facility] ALIDA,ZAIRA Personal/Family Other [address] [place], [place] [id number] ALIDA,ZAIRA Personal/Family Other [address] [place], [facility] ALIDA,ZAIRA Personal/Family Other [address] [place], [facility] ALIDA,ZAIRA Personal/Family Other [address] [place], [place] [phone] ALIDA,ZAIRA Personal/Family Other [address] [place] [address] Care Teams Labor Employment Associate Relationship Specialty Start Date End Date Rafita Carrion DO PCP - General 08/17/22
--- OUTSIDE RECORDS SUMMARY | 2024-08-21 08:31 | XMS_ITS ---
Author Organization [facility] Address [address] [place], [place] [id number] Care Team Providers Care Umbrella Tipper Name Role Phone NoamRafita crowell Unavailable Unavailable ADOLFO FORD Unavailable [phone] Allergies No Known Allergies REASON FOR VISIT The patient is happy that after the 3rd cortisone injection, her heel and arch pain went away. She is now having a very painful lump of skin on the right 5th toe. It hurts to press on it Medications Medication SIG (Take, Route, Frequency, Duration) Notes Start Date End Date Status Clopidogrel Bisulfate 75 MG 1 tablet Ora lly Once a day Active Norvasc 10 MG 1 tablet Orally Once a day Active Atorvastatin Calcium 20 MG 1 tablet Oral ly Once a day Active Furosemide 40 MG 1 tablet Orally Once a day Active hydrALAZINE HCl 25 MG 1 tablet with food Orally Three times a day Active Calcitriol 0.25 MCG [address] ee times a Week Active cloNIDine 0.1 MG/24HR 1 patch to skin Transdermal Active Nebivolol HCl 10 MG 1 tablet Orally Once a day Active Encounters Encounter Location Date Provider Diagnosis [facility] [address] [place], [place] [id number] 01/10/2024 ADOLFO FORD Acquired keratosis [keratoderma] palmaris et plantaris L85.1 ; Plantar fascial fibromatosis M72.2 and Pain in right foot M79.671 Assessments Encounter Date Diagnosis (ICD Code) Assessment Notes Treatment Notes Treatment Clinical Notes Section Notes 01/10/2024 Acquired keratosis [keratoderma] palmaris et plantaris [...] use of orthotic devices. Continue PowerStep Inserts 01/10/2024 Pain in right foot (ICD-10 - M79.671) Plan Of Treatment Treatment Notes Assessment Notes Acquired keratosis [keratode rma] palmaris et plantaris Hyperkeratosis: The skin was prepped with isopropyl alcohol. Using a 15-blade scalpel, the hyperkeratotic skin lesions were sharply debrided down to healthy appearing skin. Padding: Application of accomodative padding to offload pressure from area. Plantar fascial fibromatosis Plantar Fascitis: I discussed anti-inflammatory treatment options and various means of pronation control with the patient. I educated the patient on icing and stretching, supportive shoegear, and the use of orthotic devices. Continue PowerStep Inserts Next Appt Details Follow Up: 4 Weeks, Reason: See how padding and debridement helped callus Progress Notes * Veronica BOWLESDOB:1945 (78 yo F)Acc No.[id number]:01/10/2024 Patient:?Veronica BOWLES Provider:?Adolfo Ford DPM :1945???Age:78 Y???Sex:Female D ate:01/10/2024 Address:[address] [facility] Subjective: * Chief Complaints: * ???1. The patient is happy t hat after the 3rd cortisone injection, her heel and arch pain went away. She is now having a very painful lump of skin on the right 5th toe. It hurts to press on it. * HPI: ???HPI:?Follow Up Visit?Patient presents for follow-up visit for injection follow up. PAtient states 3rd cortisone injection helped a lot, pain is now gone. Patient now having pain on right lateral side by #5 toe. Patient states this started 1 week ago. Area appears red and irritated. , MA: LB.? * ROS:?General / Constitutional:?Patient denies?chills, fever, weakness, night sweats.?Musculoskeletal:?Patient denies?childhood foot problems, weakness.?Patient complains of?heel pain, arch pain, joint pain, gout.?Peripheral Vascular:?Patient denies?ulceration of feet, cold extremities.?Skin:?Patient denies?ulcerations, discoloration.?Patient complains of?calluses and corns.?Neurologic:?Patient denies?balance difficulty, confusion, difficulty speaking, dizziness.? * Medical History:?Leg/Feet cr amps, Liver disease, Hypertension, Varicose veins. * Surgical History:?Left Leg , Right Leg . * Medications:?Taking Furosemi de 40 MG Tablet [...] with food Orally Three times a day * Allergies:?N.K.D.A. Objective: * Examination: ???Constitutional: ?Constitutional?The patient is awake, alert, well developed, well groomed and well nourished..?Dermatologic: ?Skin findings:?Skin is warm, dry, supple with no breaks in the skin.?Hypertrophic / hyperkeratotic lesion:?medial aspect of the right 5th digit.?Vascular: ?Dorsalis pedis pulse:?2/4, bilateral.?Posterior tibial pulse:?2/4, bilaterally.?Capillary refill:?less than 3 seconds.?Edema:?No edema, bilateral.?Neurologic: ?Gross sensation?Gross sensation is intact to light touch..?Musculoskeletal: ?Muscle Strength?Muscle strength is 5/5 in regards to dorsiflexion, plantarflexion, inversion, and eversion in bilateral lower extremities..?Pain on palpation?No pain on palpation to the medial band of the left plantar fascia near its attachment to the calcaneus.? 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 Plan: * Treatment: 2.?Plantar fascial fibromato sis? Notes: Plantar Fascitis: I discussed anti-inflammatory treatment options and various means of pronation control with the patient. I educated the patient on icing and stretching, supportive shoegear, and the use of orthotic devices. Continue PowerStep Inserts ?? * Follow Up:?4 Weeks (Reason: See how padding and debridement helped callus) * Billing Information: * Visit Code:? 32125 Office Visit, Est Pt., Level 3. * Procedure Codes:? 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 PAtient states 3rd cortisone injection helped a lot, pain is now gone. Patient now having pain on right lateral side by #5 toe. Patient states this started 1 week ago. Area appears red and irritated. , MA: LB Examination Category Sub-Category Detail Notes Category Not es Dermatologic Skin findings: Skin is warm, dr y, supple with no breaks in the skin Hypertrophic / hyperkeratotic lesion: me dial aspect of the right 5th digit Neurologic Gross sensation Gross sensation is intact to light touch. Vascular Dorsalis pedis pulse: 2/4, bilateral Edema: No edema, bilateral Capillary refill: less than 3 seconds Posterior tibial pulse: 2/4, bilaterally Musculoskeletal Muscle Strength Muscle strength is 5/5 in regards to dorsiflexion, plantarflexion, inversion, and eversion in bilateral lower extremities. Pain on palpation No pain on palpation to the medial band of the left plantar fascia near its attachment to the calcaneus Constitutional Constitutional The patient is a wake, alert, well developed, well groomed and well nourished.
--- OUTSIDE RECORDS SUMMARY | 2024-08-21 08:31 | XMS_ITS | Patient Health Summary ---
Author Organization [facility] Address [address] [place] [address] Care Team Providers Care Kettle Chipper Name Role Phone Rafita Carrion DO Primary Care Provider [phone] Note from [facility],non-owned Affiliates and Associated Physician Practices is amultiple site organization consisting of ambulatory clinics and hospital sitesin [place], [place], [place] and [place]. This disclosure is being madepursuant to the Care Everywhere program and may not contain all information available regarding this patient. Last updated 18.[facility] Allergies No known active allergies Medications * Be aware that medications may not be up to date on this document. Alwaysverify current medications with the patient. * atorvastatin (LIPITOR) 20 MG tablet(Started 01/07/2019) Take 1 (one) tablet by mouth once daily 2 refills left * clopidogrel (PLAVIX) 75 MG tablet(Started 01/07/2019) Take 1 (one) tablet by mouth once daily 2 refills left * BYSTOLIC 20 MG tablet(Started 01/07/2019) Take 1 (one) tablet by mouth once daily 2 refills left * hydrALAZINE (Apresoline) 25 MG tablet Take 1 (one) tablet by mouth 3 times daily * amLODIPine (Norvasc) 10 MG tablet Take 1 (one) tablet by mouth once daily * furosemide (Lasix) 40 MG tablet Take 1 (one) tablet by mouth once daily * cloNIDine (Catapres) 0.1 MG tablet Take 1 (one) tablet by mouth 2 times daily Active Problems Problem Noted Date Diagnosed Date Claudication 02/13/2019 Carotid artery disease without cerebral infarcti on 02/13/2019 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 02/13/2019 Carotid stenosis, bilateral 02/13/2019 PAD (peripheral artery disease) 01/16/2019 Immunizations * INFLUENZA VACCINE(Given 03/30/2022) Social History Tobacco Use Types Packs/Day Years [...] Mass Index 23.4 11/09/2023 1:20 PM CDT Procedures * VAS ARTERIAL ANKLE ARM INDEX(Performed 11/09/2023) Performed for PAD (peripheral artery disease) ([facility]) * VAS RIGHT ARTERIAL DUPLEX LE(Performed 11/09/2023) Performed for PAD (peripheral artery disease) ([facility]) * VAS CAROTID DUPLEX BILATERAL(Performed 02/16/2023) Performed for Carotid stenosis, bilateral * VAS RIGHT ARTERIAL DUPLEX LE(Performed 02/16/2023) Performed for PAD (peripheral artery disease) ([facility]), S/P femoral-popliteal bypass surgery * VAS ARTERIAL MULTILEVEL LE(Performed 02/16/2023) Performed for PAD (peripheral artery disease) ([facility]), S/P femoral-popliteal bypass surgery * VAS RIGHT ARTERIAL DUPLEX LE(Performed 10/13/2022) Performed for PAD (peripheral artery disease) ([facility]) * VAS ARTERIAL MULTILEVEL LE(Performed 10/13/2022) Performed for PAD (peripheral artery disease) ([facility]) * IR ANGIOGRAM RIGHT LEG(Performed 09/01/2022) Performed for PAD (peripheral artery disease) ([facility]) * VAS RIGHT ARTERIAL DUPLEX LE(Performed 08/11/2022) Performed for PAD (peripheral artery disease) ([facility]) * VAS ARTERIAL ANKLE ARM INDEX(Performed 08/11/2022) Performed for PAD (peripheral artery disease) ([facility]) * VAS ARTERIAL ANKLE ARM INDEX(Performed 01/13/2022) Performed for PAD (peripheral artery disease) ([facility]) * VAS RIGHT ARTERIAL DUPLEX LE(Performed 01/13/2022) Performed for PAD (peripheral artery disease) ([facility]) * IR ANGIOGRAM RIGHT LEG(Performed 12/03/2021) Performed for PAD (peripheral artery disease) ([facility]), Claudication ([facility]) * PT-INR [facility](Performed 12/03/2021) Performed for PAD (peripheral artery disease) ([facility]) * BASIC METABOLIC PANEL (CALCIUM TOTAL)(Performed 12/03/2021) Performed for PAD (peripheral artery disease) ([facility]) * CBC W/O DIFFERENTIAL(Performed 12/03/2021) Performed for PAD (peripheral artery disease) ([facility]) * VAS CAROTID DUPLEX BILATERAL(Performed 11/18/2021) Performed for Carotid stenosis, bilateral * VAS BILAT ARTERIAL DUPLEX LE(Performed 11/18/2021) Performed for PAD (peripheral artery disease) ([facility]) * VAS ARTERIAL ANKLE ARM INDEX(Performed 11/18/2021) Performed for PAD (peripheral artery disease) ([facility]) * VAS CAROTID DUPLEX BILATERAL(Performed 10/29/2020) Performed for PAD (peripheral artery disease) ([facility]), Bilateral carotid artery stenosis * VAS BILAT ARTERIAL DUPLEX LE(Performed 10/29/2020) Performed for PAD (peripheral artery disease) ([facility]) * VAS ARTERIAL ANKLE ARM INDEX(Performed 10/29/2020) Performed for PAD (peripheral artery disease) ([facility]) * VAS ARTERIAL ANKLE ARM INDEX(Performed 10/03/2019) Performed for PAD (peripheral artery disease) ([facility]), Claudication of both lower extremities ([facility]), Claudication ([facility]), 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 ([facility]) * VAS CAROTID DUPLEX BILATERAL(Performed 10/03/2019) Performed for Carotid stenosis, bilateral * VAS RIGHT ARTERIAL DUPLEX LE(Performed 10/03/2019) Performed for PAD (peripheral artery disease) ([facility]), Claudication of both lower extremities ([facility]), Claudication ([facility]), 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 Anatomical Region Laterality Modality Ankle / Foot, Upper Extremity In travascular Ultrasound 11/09/2023 10:3 1 AM CDT Narrative Procedure Note Cruzito Peres MD - 11/11/2023 Narayan Flores MD VASCULAR LAB ORDER [facility]OTTIE * VAS RIGHT ARTERIAL DUPLEX LE (11/09/2023 10:58 AM CDT) Only the most recent of6 resultswithin the time period is included. Anatomical Region Laterality Modality Lower Extremity Intravascular Ul trasound 11/09/2023 10:2 5 AM CDT Narrative Procedure Note Cruzito Peres MD - 11/11/2023 Narayan Flores MD VASCULAR LAB ORDER SCOTTIE * VAS CAROTID DUPLEX BILATERAL (02/16/2023 2:31 PM CDT) Only the most recent of4 resultswithin the time period is included. Anatomical Region Laterality Modality Neck Intravascular Ul trasound 02/16/2023 1:07 PM CDT Narrative Procedure Note Cruzito Peres MD - 02/16/2023 Narayan Flores MD VASCULAR LAB ORDER SCOTTIE * VAS ARTERIAL MULTILEVEL LE (02/16/2023 2:31 PM CDT) Only the most recent of2 resultswithin the time period is included. Anatomical Region Laterality Modality Intravascular Ul trasound 02/16/2023 1:36 AM CDT Narrative Procedure Note Cruzito Peres MD - 02/16/2023 Narayan Flores MD VASCULAR LAB ORDER SCOTTIE * IR ANGIOGRAM RIGHT LEG (09/01/2022 12:22 PM MILK RECEIVER) Only the most recent of2 resultswithin the time period is included. Anatomical Region Laterality Modality Lower Extremity X-Ray Angiograph y 09/01/2022 12:2 0 PM MILK RECEIVER Impressions 09/05/2022 4:29 PM MILK RECEIVER IMPRESSION: Diffuse left lower extremity arterial disease. Significant stenosis at the distal anastomosis of the femoral-popliteal bypass in the right leg. Plain balloon angioplasty and drug coated balloon angioplasty performed with improvement in angiographic flow. Francesco Hernandez MD > Dictated by Francesco Hernandez (Refractory Technician) 09/01/2022 12:24 PM I, Narayan Flores MD have personally reviewed and interpreted this examination/study. > Interpreting Provider: Narayan Flores MD on 09/05/2022 4:29 PM Narrative 09/05/2022 4:29 PM MILK RECEIVER PROCEDURE: ??IR ANGIOGRAM RIGHT LEG, DATE/TIME OF EXAM: ??09/01/2022 8:28 AM, LOCATION ??[facility] PRE-PROCEDURE DIAGNOSIS: ?Right lower extremity claudication with stenosis of previous bypass POST-PROCEDURE DIAGNOSIS: ?Right lower extremity claudication stenosis of previous bypass OPERATORS: ? Dr. Narayan Flores MD, Attending Physician ? Dr. Francesco Hernandez MD, Resident Physician PROCEDURE: 1. ?Ultrasound guided access of the left common femoral artery 2. ?Abdominal aortogram 3. ?Bilateral lower extremity angiogram, second order catheterization of the right lower extremity 4. ?Moderate sedation totaling 60 minutes 5. ?? Balloon angioplasty of the right femoral/popliteal bypass graft and right popliteal artery ATTENDING: Narayan Flores M.D. RESIDENT: Francesco Hernandez MD INDICATIONS FOR PROCEDURE: The patient is a 77-year-old female had a previous right femoral to popliteal above knee bypass that has had a repeat stenosis after the balloon angioplasty last year. The procedure, along with the risks, benefits and alternatives were discussed in detail, they were agreeable with the plan and all of their questions were answered. PROCEDURE IN DETAIL: The patient was brought into the angiography suite and placed supine on the table. Vital signs were monitored consistently and the patient was given midazolam and fentanyl for sedation, please see below. The bilateral groins were then prepped and draped in the usual sterile fashion. A timeout was performed verifying the correct patient, procedure and site. Limited ultrasound of the left common femoral artery demonstrated a patent vessel. Lidocaine 1% was injected overlying the vessel. The ??common femoral artery measured 6 mm in AP diameter, and a normal waveform was observed. The left common femoral artery was accessed using a micropuncture needle under ultrasound guidance. The needle entry was documented. ??Images have been stored. Seldinger technique was used to place a microcatheter sheath. After a series of exchanges this was upsized for a 5 Vietnamese sheath. Left lower extremity angiogram was performed showing diffuse disease throughout with peroneal and anterior tibial artery runoff to the foot. A Glidewire and Omni flush catheter was used to come up and over the aortic bifurcation and the Omni Flush catheter was advanced into the right common femoral artery. Right lower extremity angiogram was performed. No apparent issues with the proximal anastomosis in the right common femoral artery, however there was recurrent stenosis at the above-knee popliteal artery at the level of the distal anastomosis. Plain balloon angioplasty was performed using a 6 x 40 mm balloon. Given the recurrent stenosis, a drug coated balloon also 6 x 40 mm was used as well. A minx device was deployed in the left groin and manual pressure held with adequate hemostasis. . SEDATION: I, Dr. Narayan Flores, was present and performed/supervised the entire procedure. Moderate sedation on this adult patient was ordered by me, administered intravenously in my presence, and monitored by the procedure nurse as an independent trained observer who was present throughout the procedure. The following parameters were monitored: oxygen saturation, heart rate, blood pressure, and response to care. The patient was given a total of 2 mg of midazolam and 100 micrograms of fentanyl with a start time of ??1107 hrs and an end time of 1212 hrs for a total of 65 minutes. Vital signs were observed and noted to be within normal limits throughout the entirety of sedation as well as postprocedure in the recovery area until discharge. For details on pre-moderate sedation and post-moderate sedation patient evaluation, please review the evaluation forms in [facility]. For details on monitored clinical parameters during the intra-service sedation time, please review the procedure nurse documentation in [facility]. ? COMPLICATIONS: ??None apparent ESTIMATED BLOOD LOSS: 3cc Procedure Note Narayan Flores MD - 09/05/2022 PROCEDURE: IR ANGIOGRAM RIGHT LEG, DATE/TIME OF EXAM: 09/01/2022 8:28AM, LOCATION [facility] PRE-PROCEDURE DIAGNOSIS: Right lower extremity claudication with stenosis of previous bypass POST-PROCEDURE DIAGNOSIS: Right lower extremity claudication stenosisof previous bypass OPERATORS: Dr. Narayan Flores MD, Attending Physician Dr. Francesco Hernandez MD, Resident Physician PROCEDURE: 1. Ultrasound guided access of the left common femoral artery 2. Abdominal aortogram 3. Bilateral lower extremity angiogram, second order catheterizationof the right lower extremity 4. Moderate sedation totaling 60 minutes 5. Balloon angioplasty of the right femoral/popliteal bypass graft and right popliteal artery ATTENDING: Narayan Flores M.D. RESIDENT: Francesco Hernandez MD INDICATIONS FOR PROCEDURE: The patient is a 77-year-old female had a previous right femoral to popliteal above knee bypass that has had a repeat stenosis after the balloon angioplasty last year. The procedure, along with the risks, benefits and alternatives were discussed in detail, they were agreeable with the plan and all of their questions were answered. PROCEDURE IN DETAIL: The patient was brought into the angiography suite and placed supine onthe table. Vital signs were monitored consistently and the patient was given midazolam and fentanyl for sedation, please see below. The bilateralgroins were then prepped and draped in the usual sterile fashion. A timeout was performed verifying the correct patient, procedure and site. Limited ultrasound of the left common femoral artery demonstrated apatent vessel. Lidocaine 1% was injected overlying the vessel. The commonfemoral artery measured 6 mm in AP diameter, and a normal waveform was observed. The left common femoral artery was accessed using a micropuncture needle under ultrasound guidance. The needle entry was documented. Images have been stored. Seldinger technique was used to place a microcathetersheath. After a series of exchanges this was upsized for a 5 Vietnamese sheath. Left lower extremity angiogram was performed showing diffuse disease throughout with peroneal and anterior tibial artery runoff to the foot.A Glidewire and Omni flush catheter was used to come up and over theaortic bifurcation and the Omni Flush catheter was advanced into the rightcommon femoral artery. Right lower extremity angiogram was performed. Noapparent issues with the proximal anastomosis in the right common femoral artery, however there was recurrent stenosis at the above-knee popliteal arteryat the level of the distal anastomosis. Plain balloon angioplasty was performed using a 6 x 40 mm balloon. Given the recurrent stenosis, adrug coated balloon also 6 x 40 mm was used as well. A minx device wasdeployed in the left groin and manual pressure held with adequate hemostasis. . SEDATION: I, Dr. Narayan Flores, was present and performed/supervised the entire procedure. Moderate sedation on this adult patient was ordered by me, administered intravenously in my presence, and monitored by theprocedure nurse as an independent trained observer who was present throughout the procedure. The following parameters were monitored: oxygen saturation, heart rate, blood pressure, and response to care. The patient was givena total of 2 mg of midazolam and 100 micrograms of fentanyl with a starttime of 1107 hrs and an end time of 1212 hrs for a total of 65 minutes.Vital signs were observed and noted to be within normal limits throughout the entirety of sedation as well as postprocedure in the recovery area until discharge. For details on pre-moderate sedation and post-moderatesedation patient evaluation, please review the evaluation forms in [facility]. Fordetails on monitored clinical parameters during the intra-service sedation time, please review the procedure nurse documentation in [facility]. COMPLICATIONS: None apparent ESTIMATED BLOOD LOSS: 3cc IMPRESSION: Diffuse left lower extremity arterial disease. Significant stenosis at the distal anastomosis of the femoral-popliteal bypass inthe right leg. Plain balloon angioplasty and drug coated balloon angioplasty performed with improvement in angiographic flow. Francesco Hernandez MD > Dictated by Francesco Hernandez (Refractory Technician) 09/01/2022 12:24 PM Narayan Pritchard MD have personally reviewed and interpreted this examination/study. > Interpreting Provider: Narayan Flores MD on 09/05/2022 4:29 PM Narayan Flores MD IR ORDERABLES * PT-INR [facility] (12/03/2021 8:24 AM CDT) PT 13.4 12.1 - 14.8 Seconds 12/03/2021 8:52 AM [facility] INR 1.0 See Comment 12/03/2021 8:52 AM [facility] Comment:The suggested therap eutic range for standard coumadin (warfarin) therapy is an INR of 2.0-3.0. For high-risk patients (Mechanical Mitral Valve Prosthesis, etc.), the suggested prophylactic therapeutic range is an INR of 2.5-3.5. Blood BLOOD SPECIMEN / Unknown Venipuncture / Unknown 12/03/2021 8:24 AM CDT 12/03/2021 8:28 AM CDT Anneliese Tobin Moose REYESN-CAD CAM PROGRAMMER LAB - COAGULATI ON ORDERABLES Performing Organization Address City/State/[facility] Co de Phone Number [address] [address], [facility] [phone] * (ABNORMAL) CBC W/O DIFFERENTIAL (12/03/2021 8:24 AM CDT) WBC 6.6 3.5 - 10.5 10? 3 /uL 12/03/2021 8:37 AM [facility] RBC 3.38(L) 3.80 - 5.20 10? 6 /uL 12/03/2021 8:37 AM [facility] Hemoglobin 9.5(L) 12.0 - 15.6 g/dL 12/03/2021 8:37 AM [facility] Hematocrit 30.3(L) 35.0 - 45.0 % 12/03/2021 8:37 AM [facility] MCV 89.6 80.7 - 98.3 fL 12/03/2021 8:37 AM [facility] MCH 28.1 26.7 - 34.0 pg 12/03/2021 8:37 AM [facility] MCHC 31.4 30.8 - 35.9 g/dL 12/03/2021 8:37 AM [facility] Platelet Count 193 150 - 400 10? 3 /uL 12/03/2021 8:37 AM [facility] RDW-SD 50.1(H) 36.0 - 50.0 fL 12/03/2021 8:37 AM [facility] RDW-CV 15.2(H) 11.2 - 14.8 % 12/03/2021 8:37 AM [facility] MPV 11.2 9.4 - 12.9 fL 12/03/2021 8:37 AM [facility] nRBC Absolute 0.00 0 10? 3 /uL 12/03/2021 8:37 AM [facility] nRBC Auto 0.0 0 /100 WBC 12/03/2021 8:37 AM [facility] Blood BLOOD SPECIMEN / Unknown Venipuncture / Unknown 12/03/2021 8:24 AM CDT 12/03/2021 8:28 AM CDT Anneliese Virk APRN-CAD CAM PROGRAMMER LAB - HEMATOLOG Y ORDERABLES [facility] [address] [place] [phone], [facility] [phone] * (ABNORMAL) BASIC METABOLIC PANEL (CALCIUM TOTAL) (12/03/2021 8:24 AM CDT) BUN 40(H) 7 - 26 mg/dL 12/03/2021 8:55 AM [facility] Creatinine 2.00(H) 0.56 - 0.96 mg/dL 12/03/2021 8:55 AM [facility] Sodium 142 136 - 145 mmol/L 12/03/2021 8:55 AM [facility] Potassium 4.6(H) 3.5 - 4.5 mmol/L 12/03/2021 8:55 AM [facility] Chloride 113(H) 98 - 107 mmol/L 12/03/2021 8:55 AM [facility] CO2 20(L) 22 - 29 mmol/L 12/03/2021 8:55 AM [facility] Glucose 95 70 - 115 mg/dL 12/03/2021 8:55 AM CDT [facility] Calcium 10.0 8.4 - 10.2 mg/dL 12/03/2021 8:55 AM T [facility] Anion Gap 14 8 - 18 12/03/2021 8:55 AM T [facility] BUN/Creatinine Ratio 20 7 - 23 12/03/2021 8:55 AM T [facility] Osmolality Calculated 304(H) 270 - 300 mOsm/kg 12/03/2021 8:55 AM [facility] eGFR by CKD-EPI 26(L) >=90 mL/min/1.7 3 m2 12/03/2021 8:55 AM T [facility] Blood BLOOD SPECIMEN / Unknown Venipuncture / Unknown 12/03/2021 8:24 AM CDT 12/03/2021 8:28 AM CDT Anneliese Virk TANK TESTER-CAD CAM PROGRAMMER LAB - CHEMISTRY ORDERABLES [facility] [address] [place] [phone], [facility] [phone] * VAS BILAT ARTERIAL DUPLEX LE (11/18/2021 3:16 PM CDT) Only the most recent of3 resultswithin the time period is included. Anatomical Region Laterality Modality Lower Extremity Intravascular Ul trasound 11/18/2021 1:27 PM CDT Narrative Procedure Note Paco Kaufman MD - 11/19/2021 Narayan Flores MD VASCULAR LAB ORDER SCOTTIE Care Teams Kettle Chipper Relationship Specialty Start Date End Date Rafita Carrion DO PCP - General 08/17/22
--- OUTSIDE RECORDS SUMMARY | 2024-08-21 08:32 | XMS_ITS | Clinical Summary ---
Author Organization [facility] Address [address] [place] [phone] Phone Care Team Providers Care Six Pack Loader Operator Name Role Phone Narayan Brennan MD Primary Care Provider [phone] Allergies No known active allergies Medications Medication Sig Dispensed Refills Start Date End Date Status atorvastatin (LIPITOR) 20 MG tablet 01/05/2020 Active BYSTOLIC 20 MG tablet 01/01/2020 Act [place] clopidogrel (PLAVIX) 75 MG tablet 10/25/2019 Active amLODIPine (NORVASC) 10 MG tablet TK 1 T PO DAILY 05/01/2020 Active losartan (COZAAR) 100 MG tablet Take 100 mg by mouth 1 (one) time each day 10/21/2021 Active furosemide (LASIX) 20 MG tablet TAKE 1 TABLET(20 MG) BY MOUTH 1 TIME EACH DAY 30 tablet 3 02/02/2022 Active clopidogrel (PLAVIX) 75 MG tablet 30 0 05/27/2015 Active pantoprazole (PROTONIX) 40 MG EC tablet 30 PRN Active pantoprazole (Protonix) 40 MG EC tablet Once a day as needed 90 3 06/30/2016 Active lisinopril (PRINIVIL) 20 MG tablet Once a day 90 3 06/30/2016 Active clopidogrel (Plavix) 75 MG tablet Once a day 90 3 06/30/2016 Active carvedilol CR (Coreg CR) 10 MG 24 hr capsule Once a day 90 3 06/30/2016 Active aspirin (ASPIR) 81 MG EC tablet Once a day 90 3 06/30/2016 Active atorvastatin (Lipitor) 20 MG tablet Once a day 90 3 06/30/2016 Active Active Problems Problem Noted Date Diagnosed Date Atherosclerosis of artery of lower limb 02/14/20 19 Bilateral carotid artery stenosis 02/13/2019 Intermittent claudication 02/13/2019 Peripheral vascular disease 01/16/2019 Chronic kidney disease Hypertension Hyperlipidemia Coronary arteriosclerosis Gastroesophageal reflux disease Other hyperlipidemia Essential (primary) hypertension Atherosclerotic heart diseas e of [place] coronary artery without angina pectoris Peripheral vascular disease Immunizations Name Administration Dates Next Due Influenza, Injectable, Quadrivalent 03/28/2019 Sars-cov-2, Unspecified 11/14/2020 Family History Medical History Relation Comments Hypertension Father Kidney disease Father Nephrolithiasis Father Stroke Father COPD Mother Diabetes Mother Hypertension Mother Breast cancer Sister Relation Status Comments Father Mother Sister Social History Tobacco Use Types Packs/Day Years Used Date Smoking Tobacco: Former Cigarettes 2 30 1 2013 Smokeless Tobacco: Never Alcohol Use Standard Drinks/Week Comments Not Currently 0 (1 standard drink = 0.6 oz pur e alcohol) Sex and Gender Information Value Date Recorded Sex Assigned at Not on file Gender Identity Not on file Sexual Orientation Not on file Last Filed Vital Signs Vital Sign Reading Time Taken Comments Blood Pressure 136/74 03/18/2022 2:29 PM CDT Pulse 61 09/07/2016 12:19 PM EST Temperature 37.2 ??C (98.9 ??F) 03/18/2022 2:29 PM CD T Respiratory Rate 18 03/18/2022 2:29 PM CDT Oxygen Saturation - - Inhaled Oxygen Concentration - - Weight 73 kg (161 lb) 03/18/2022 2:29 PM CDT Height 165.1 cm (5' 5 ) 03/18/2022 2:29 PM CDT Body Mass Index 26.79 03/18/2022 2:29 PM CDT Plan of Treatment Health Maintenance Due Date Last Done Comments Pneumococcal PPSV23/PCV13 65 + Years / High and Highest Risk (1 of 4 - PCV) 1951 Influenza Vaccine (#1) 2024 Care Teams Six Pack Loader Operator Relationship Specialty Start Date End Date Narayan Brennan MD [address] [phone] PCP - General Internal Medicine 09/04/19
--- OUTSIDE RECORDS SUMMARY | 2024-08-21 08:32 | XMS_ITS | Encounter Summary ---
Author Organization [facility] Address [address] [place] [address] Phone Care Team Providers Care Industrial Hygienist Name Role Phone Narayan Brennan MD Primary Care Provider [phone] Encounter Details Date Type Department Care Team (Late st Contact Info) Description 09/25/2015 Abstract Kidney Diseases, Hypertension and Primary Care of [facility] S [facility] 203 [place] [address] Sruthi Ornelas MD [address] [facility] 203 [place] [address] Social History Tobacco Use Types Packs/Day Years Used Date Smoking Tobacco: Never Assessed Sex and Gender Information Value Date Recorded Sex Assigned at Not on file Gender Identity Not on file Sexual Orientation Not on file documented as of this encounter Plan of Treatment Not on file documented as of this encounter Visit Diagnoses Not on filedocumented in this encounter Care Teams Industrial Hygienist Relationship Specialty Start Date End Date Narayan Brennan MD [address] [place] [address] PCP - General Internal Medicine 09/04/19 documented as of this encounter
--- OUTSIDE RECORDS SUMMARY | 2024-08-21 08:32 | XMS_ITS | Encounter Summary ---
Author Organization [facility] Address [address] [place] [address] Phone Care Team Providers Care Recycling Manager Name Role Phone Narayan Brennan MD Primary Care Provider [phone] Encounter Details Date Type Department Care Team (Late st Contact Info) Description 01/04/2017 Office Visit Kidney Diseases, Hypertension and Primary Care of [facility] S [facility] 203 [place] [address] Alexandre Ornelas MD [address] [facility] 203 [place] [address] Social History Tobacco Use Types Packs/Day Years Used Date Smoking Tobacco: Never Assessed Sex and Gender Information Value Date Recorded Sex Assigned at Not on file Gender Identity Not on file Sexual Orientation Not on file documented as of this encounter Plan of Treatment Not on file documented as of this encounter Visit Diagnoses Not on filedocumented in this encounter Care Teams Recycling Manager Relationship Specialty Start Date End Date Narayan Brennan MD [address] [place] [address] PCP - General Internal Medicine 09/04/19 documented as of this encounter
--- OUTSIDE RECORDS SUMMARY | 2024-08-21 08:32 | XMS_ITS | Encounter Summary ---
Author Organization [facility] Address [address] [place] [address] Phone Care Team Providers Care Bread Wrapping Machine Feeder Name Role Phone Narayan Brennan MD Primary Care Provider [phone] Encounter Details Date Type Department Care Team (Late st Contact Info) Description 09/25/2015 Abstract Kidney Diseases, Hypertension and Primary Care of [facility] S [facility] 203 [place] [address] Sruthi Ornelas MD [address] [facility] 203 [place] [address] Social History Tobacco Use Types Packs/Day Years Used Date Smoking Tobacco: Never Assessed Sex and Gender Information Value Date Recorded Sex Assigned at Not on file Gender Identity Not on file Sexual Orientation Not on file documented as of this encounter Plan of Treatment Not on file documented as of this encounter Visit Diagnoses Not on filedocumented in this encounter Care Teams Bread Wrapping Machine Feeder Relationship Specialty Start Date End Date Narayan Brennan MD [address] [place] [address] PCP - General Internal Medicine 09/04/19 documented as of this encounter
--- OUTSIDE RECORDS SUMMARY | 2024-08-21 08:32 | XMS_ITS | Encounter Summary ---
Author Organization [facility] Address [address] [place] [address] Phone Care Team Providers Care Golf Shoe Spike Assembler Name Role Phone Narayan Brennan MD Primary Care Provider [phone] Encounter Details Date Type Department Care Team (Late st Contact Info) Description 09/07/2016 Office Visit Kidney Diseases, Hypertension and Primary Care of [place] [address] [facility] 203 [place] [address] Alexandre Ornelas MD [address] [facility] [address] [place] [address] Social History Tobacco Use Types Packs/Day Years Used Date Smoking Tobacco: Never Assessed Sex and Gender Information Value Date Recorded Sex Assigned at Not on file Gender Identity Not on file Sexual Orientation Not on file documented as of this encounter Plan of Treatment Not on file documented as of this encounter Visit Diagnoses Not on filedocumented in this encounter Care Teams Golf Shoe Spike Assembler Relationship Specialty Start Date End Date Narayan Brennan MD [address] [place] [address] PCP - General Internal Medicine 09/04/19 documented as of this encounter
--- OUTSIDE RECORDS SUMMARY | 2024-08-21 08:32 | XMS_ITS | Encounter Summary ---
Author Organization [facility] Address [address] [place] [address] Phone Care Team Providers Care Art Librarian Name Role Phone Narayan Brennan MD Primary Care Provider [phone] Encounter Details Date Type Department Care Team (Late st Contact Info) Description 09/24/2016 Legacy Encounter - Labs Kidney Diseases, Hypertension and Primary Care of [facility] S [facility] 203 [place] [address] Alexandre Ornelas MD [facility] S [facility] 203 [place] [address] Social History Tobacco Use Types Packs/Day Years Used Date Smoking Tobacco: Never Assessed Sex and Gender Information Value Date Recorded Sex Assigned at Not on file Gender Identity Not on file Sexual Orientation Not on file documented as of this encounter Plan of Treatment Not on file documented as of this encounter Procedures Procedure Name Priority Date/Time Associated Diagnosis Comments DPS CONVERSION - LAB RESULT SCAN PROCEDURE 09/24/2016 documented in this encounter Results * DPS CONVERSION - LAB RESULT SCAN PROCEDURE (09/24/2016) Alexandre Ornelas MD LAB BLOOD ORDERABLES documented in this encounter Visit Diagnoses Not on filedocumented in this encounter Care Teams Art Librarian Relationship Specialty Start Date End Date Narayan Brennan MD [address] [place] [address] PCP - General Internal Medicine 09/04/19 documented as of this encounter
--- OUTSIDE RECORDS SUMMARY | 2024-08-21 08:32 | XMS_ITS | Encounter Summary ---
Author Organization [facility] Address [address] [place] [address] Phone Care Team Providers Care Healthcare Prof Name Role Phone Narayan Brennan MD Primary Care Provider [phone] Encounter Details Date Type Department Care Team (Late st Contact Info) Description 09/25/2015 Legacy Encounter - Labs Kidney Diseases, Hypertension and Primary Care of [facility] S [facility] 203 [place] [address] Sruthi Ornelas MD [address] [facility] 203 [place] [address] Social History Tobacco Use Types Packs/Day Years [...] DPS CONVERSION - LAB RESULT SCAN PROCEDURE 09/25/2015 documented in this encounter Results * DPS CONVERSION - LAB RESULT SCAN PROCEDURE (09/25/2015) Sruthi Ornelas MD LAB BLOOD ORDERABLES documented in this encounter Visit Diagnoses Not on filedocumented in this encounter Care Teams Healthcare Prof Relationship Specialty Start Date End Date Narayan Brennan MD [address] [place] [address] PCP - General Internal Medicine 09/04/19 documented as of this encounter
--- OUTSIDE RECORDS SUMMARY | 2024-08-21 08:32 | XMS_ITS | Encounter Summary ---
Author Organization [facility] Address [address] [place] [address] Phone Care Team Providers Care Stoneworker Name Role Phone Narayan Brennan MD Primary Care Provider [phone] Encounter Details Date Type Department Care Team (Late st Contact Info) Description 09/07/2016 Office Visit Kidney Diseases, Hypertension and Primary Care of [place] [address] [facility] 203 [place] [address] Alexandre Ornelas MD [address] [facility] 203 [place] [address] Social History Tobacco Use Types Packs/Day Years Used Date Smoking Tobacco: Never Assessed Sex and Gender Information Value Date Recorded Sex Assigned at Not on file Gender Identity Not on file Sexual Orientation Not on file documented as of this encounter Plan of Treatment Not on file documented as of this encounter Visit Diagnoses Not on filedocumented in this encounter Care Teams Stoneworker Relationship Specialty Start Date End Date Narayan Brennan MD [address] [place] [address] PCP - General Internal Medicine 09/04/19 documented as of this encounter
--- OUTSIDE RECORDS SUMMARY | 2024-08-21 08:32 | XMS_ITS | Encounter Summary ---
Author Organization [facility] Address [address] [place] [address] Phone Care Team Providers Care Senior Cisco Network Engineer Name Role Phone Narayan Brennan MD Primary Care Provider [phone] Encounter Details Date Type Department Care Team (Late st Contact Info) Description 09/25/2015 Abstract Kidney Diseases, Hypertension and Primary Care of [facility] S [facility] 203 [place] [address] Sruthi Ornelas MD [address] [facility] [address] [place] [address] Social History Tobacco Use Types Packs/Day Years Used Date Smoking Tobacco: Never Assessed Sex and Gender Information Value Date Recorded Sex Assigned at Not on file Gender Identity Not on file Sexual Orientation Not on file documented as of this encounter Plan of Treatment Not on file documented as of this encounter Visit Diagnoses Not on filedocumented in this encounter Care Teams Senior Cisco Network Engineer Relationship Specialty Start Date End Date Narayan Brennan MD [address] [place] [address] PCP - General Internal Medicine 09/04/19 documented as of this encounter
--- OUTSIDE RECORDS SUMMARY | 2024-08-21 08:32 | XMS_ITS | Encounter Summary ---
Author Organization [facility] Address [address] [place] [address] Phone Care Team Providers Care Payment Poster Name Role Phone Narayan Brennan MD Primary Care Provider [phone] Encounter Details Date Type Department Care Team (Late st Contact Info) Description 09/25/2015 Legacy Encounter - Labs Kidney Diseases, Hypertension and Primary Care of [facility] S [facility] [address] [place] [address] Sruthi Ornelas MD [address] [facility] [address] [place] [address] Social History Tobacco Use Types Packs/Day Years [...] on filedocumented in this encounter Care Teams Payment Poster Relationship Specialty Start Date End Date Narayan Brennan MD [address] [place] [address] PCP - General Internal Medicine 09/04/19 documented as of this encounter
--- OUTSIDE RECORDS SUMMARY | 2024-08-21 08:32 | XMS_ITS | Clinical Summary ---
Author Organization [facility] Address [address] Aritan: Epic Prelude ADT [place] [address] Care Team Providers Care Tank Farm Operator Name Role Phone Unavailable Primary Care Provider Unavailabl e Immunizations Immunization Administration Dates Next Due (COMIRNATY)(12 YR UP) COVID- 19 VACCINE, MRNA, SPIKE PROTEIN, LNP, YOAV(PF) 30 MCG/0.3 ML IM SUSP 04/15/2024 (PREVNAR 20)(6 WKS UP) PNEUM OCOCCAL CONJUGATE VACCINE 20-VALENT (PCV20), POLYSACCHARIDE [id number] CONJUGATE, ADJUVANT 0.5 ML (PF) IM 04/22/2024 (SHINGRIX)(50 YRS UP) ZOSTER VACCINE RECOMBINANT, 0.5 ML, IM 07/24/2024,04/27/2024 INFLUENZA VACCINE HIGH DOSE QUADRIVALENT 65 YR UP PF IM 04/12/2023,04/23/2022 INFLUENZA VACCINE HIGH DOSE TRIVALENT SPLIT VIRUS, (65 YR UP), 0.5ML (PF), IM 04/06/2024 Social History Tobacco Use Types Packs/Day Years Used Date Smoking Tobacco: Never Assessed Comments Unknown Sex and Gender Information Value Date Recorded Sex Assigned at Not on file Legal Sex Female 3:27 PM CDT Gender Identity Not on file Sexual Orientation Not on file Plan of Treatment Health Maintenance Due Date Last Done Comments DTAP/TDAP/TD VACCINES (1 - Tdap) 1966 OSTEOPOROSIS SCREENING 2012 RSV VACCINE (60+ or ) (1 - 1-dose 75+ series) 2022 INFLUENZA VACCINE Completed 04/06/2024, , 04/23/2022 COVID-19 Vaccine Completed 04/15/2024 PNEUMOCOCCAL VACCINE 65+ YEARS Completed 04/22/2024 ZOSTER VACCINE Completed 07/24/2024, 04/27/2024 Insurance RX ALLWIN DATA Medicare Part B RX [employer] RX Member Subscriber Plan / Payer (Ef fective for All Dates) Name:Veronica Bowles Relation to Subscriber:Self Name:Veronica Bowles Payer ID:Not on file Group ID:[id number] Type:RX Medicare Part D Address: [place]
--- OUTSIDE RECORDS SUMMARY | 2024-08-21 08:32 | XMS_ITS | Encounter Summary ---
Author Organization [facility] Address [address] [place] [address] Phone Care Team Providers Care Splitter Head Name Role Phone Narayan Brennan MD Primary Care Provider [phone] Encounter Details Date Type Department Care Team (Late st Contact Info) Description 09/25/2015 Abstract Kidney Diseases, Hypertension and Primary Care of [facility] S [facility] 203 [place] [address] Sruthi Ornelas MD [address] [facility] [address] [place] [address] Social History Tobacco Use Types Packs/Day Years Used Date Smoking Tobacco: Never Assessed Sex and Gender Information Value Date Recorded Sex Assigned at Not on file Gender Identity Not on file Sexual Orientation Not on file documented as of this encounter Plan of Treatment Not on file documented as of this encounter Visit Diagnoses Not on filedocumented in this encounter Care Teams Splitter Head Relationship Specialty Start Date End Date Narayan Brennan MD [address] [place] [address] PCP - General Internal Medicine 09/04/19 documented as of this encounter
--- OUTSIDE RECORDS SUMMARY | 2024-08-21 08:32 | XMS_ITS ---
Author Organization [facility] Address [address] [place], [place] [address] Care Team Providers Care Excellence Consultant Name Role Phone Delphinesameer Rafita Unavailable Unavailable ADOLFO FORD Unavailable [phone] REASON FOR VISIT The patient returns for a painful 4th and 5th hammertoe of the right foot. She lost the pad and nowthe toes are rubbing again Medications Medication SIG (Take, Route, Frequency, Duration) Notes Start Date End Date Status Calcitriol 0.25 MCG 1 capsule Orally Thr ee times a Week Active Clopidogrel Bisulfate 75 MG 1 tablet Ora lly Once a day Active hydrALAZINE HCl 25 MG 1 tablet with food Orally Three times a day Active cloNIDine 0.1 MG/24HR 1 patch to skin Transdermal Active Norvasc 10 MG 1 tablet Orally Once a day Active Furosemide 40 MG 1 tablet Orally Once a day Active Atorvastatin Calcium 20 MG 1 tablet Oral ly Once a day Active Nebivolol HCl 10 MG 1 tablet Orally Once a day Active Vital Signs Height 65 in 02/07/2024 Weight 140 lbs 02/07/2024 BMI 23.29 kg/m2 02/07/2024 Height-cm 165.1 cm 02/07/2024 Weight-kg 63.5 kg 02/07/2024 Encounters Encounter Location Date Provider Diagnosis [facility] [address], [place] [id number] 02/07/2024 ADOLFO FORD Acquired keratosis [keratoderma] palmaris et plantaris L85.1 ; Pain in right foot M79.671 and Other hammer toe(s) (acquired), right foot M20.41 Assessments Encounter Date Diagnosis (ICD Code) Assessment Notes Treatment Notes Treatment Clinical Notes Section Notes 02/07/2024 Acquired keratosis [keratoderma] palmaris et plantaris [...] about the intra-operative and post-operative treatment course. Plan Of Treatment Treatment Notes Assessment Notes Acquired keratosis [keratode rma] palmaris et plantaris Hyperkeratosis: The skin was prepped with isopropyl alcohol. Using a 15-blade scalpel, the hyperkeratotic skin lesions were sharply debrided down to healthy appearing skin. Padding: Application of accomodative padding to offload pressure from area. Other hammer toe(s) (acquire d), right foot Hammertoe Deformity: Discussed various treatments for hammer toes with the patient . Discussed conservative care consisting of padding, wider shoes, anti-inflammatories, and orthotics. Discussed surgical treatment options and answered all questions about the intra-operative and post-operative treatment course. Next Appt Details Follow Up: prn, Reason: Progress Notes * Veronica BOWLESDOB:1945 (78 yo F)Acc No.[id number]:02/07/2024 Patient:?Veronica BOWLES Provider:Mita Ford DPM :1945???Age:78 Y???Sex:Female D ate:02/07/2024 Address:[address] [id number] Subjective: * Chief Complaints: * ???1. The patient returns fo r a painful 4th and 5th hammertoe of the right foot. She lost the pad and now the toes are rubbing again. * HPI: ???HPI:?Follow Up Visit?Patient presents for follow up visit for right foot pinky toe on medial side is very sore. , Patient states their problem is, unchanged., MA: JR.? * ROS:?General / Constitutional:?Patient denies?chills, fever, weakness, [...] plantarflexion, inversion, and eversion in bilateral lower extremities..?Hammertoes?Flexion contracture of the following digits:, 5th, Right, The deformity is:, non-reducible.? 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 Plan: * Treatment: 2.?Other hammer toe(s) (acqu ired), right foot? Notes: Hammertoe Deformity: Discussed various treatments for hammer toes with the patient . Discussed conservative care consisting of padding, wider shoes, anti-inflammatories, and orthotics. Discussed surgical treatment options and answered all questions about the intra-operative and post-operative treatment course.?? * Follow Up:?prn * Billing Information: * Visit Code:? 60040 Office Visit, Est Pt., Level 3. * Procedure Codes:? * Sign off status: Completed true * Provider:?Adolfo Ford DPM Date:?02/07/20 24 Generated for Sam ackerman/Morena/eTphucitting on:?08/21/2024 08:31 AM MUSEUM SPECIALIST History and Physical Notes * HPI (History of Present Illness) Category Sub-Category Detail Notes Category Not es HPI Follow Up Visit Patient presents for follow up visit for right foot pinky toe on medial side is very sore. , Patient states their problem is, unchanged., MA: JR Examination Category Sub-Category Detail Notes Category Not [...] inversion, and eversion in bilateral lower extremities. Hammertoes Flexion contracture of the following digits:, 5th, Right, The deformity is:, non-reducible Constitutional Constitutional The patient is a wake, alert, well developed, well groomed and well nourished.
--- OUTSIDE RECORDS SUMMARY | 2024-08-21 08:32 | XMS_ITS | Encounter Summary ---
Author Organization [facility] Address [address] [place] [address] Phone Care Team Providers Care Psychologist Educational Name Role Phone Narayan Brennan MD Primary Care Provider [phone] Encounter Details Date Type Department Care Team (Late st Contact Info) Description 09/25/2015 Legacy Encounter - Labs Kidney Diseases, Hypertension and Primary Care of [facility] S [facility] [address] [place] [address] Sruthi Ornelas MD [address] [facility] [address] [place] [address] Social History Tobacco Use Types Packs/Day Years [...] on filedocumented in this encounter Care Teams Psychologist Educational Relationship Specialty Start Date End Date Narayan Brennan MD [address] [place] [address] PCP - General Internal Medicine 09/04/19 documented as of this encounter
--- OUTSIDE RECORDS SUMMARY | 2024-08-21 08:32 | XMS_ITS | Encounter Summary ---
Author Organization [facility] Address [address] [place] [address] Phone Care Team Providers Care Security Monitor Name Role Phone Narayan Brennan MD Primary Care Provider [phone] Encounter Details Date Type Department Care Team (Late st Contact Info) Description 09/25/2015 Abstract Kidney Diseases, Hypertension and Primary Care of [facility] S [facility] 203 [place] [address] Sruthi Ornelas MD [address] [facility] 203 [place] [address] Social History Tobacco Use Types Packs/Day Years Used Date Smoking Tobacco: Never Assessed Sex and Gender Information Value Date Recorded Sex Assigned at Not on file Gender Identity Not on file Sexual Orientation Not on file documented as of this encounter Plan of Treatment Not on file documented as of this encounter Visit Diagnoses Not on filedocumented in this encounter Care Teams Security Monitor Relationship Specialty Start Date End Date Narayan Brennan MD [address] [place] [address] PCP - General Internal Medicine 09/04/19 documented as of this encounter
--- OUTSIDE RECORDS SUMMARY | 2024-08-21 08:32 | XMS_ITS | Encounter Summary ---
Author Organization [facility] Address [address] [place] [address] Phone Care Team Providers Care Motorsports Technician Name Role Phone Narayan Brennan MD Primary Care Provider [phone] Encounter Details Date Type Department Care Team (Late st Contact Info) Description 09/25/2015 Abstract Kidney Diseases, Hypertension and Primary Care of [facility] S [facility] 203 [place] [address] Sruthi Ornelas MD [address] [facility] [address] [place] [address] Social History Tobacco Use Types Packs/Day Years Used Date Smoking Tobacco: Never Assessed Sex and Gender Information Value Date Recorded Sex Assigned at Not on file Gender Identity Not on file Sexual Orientation Not on file documented as of this encounter Plan of Treatment Not on file documented as of this encounter Visit Diagnoses Not on filedocumented in this encounter Care Teams Motorsports Technician Relationship Specialty Start Date End Date Narayan Brennan MD [address] [place] [address] PCP - General Internal Medicine 09/04/19 documented as of this encounter
[2024-08-21 16:27] LABS: Cholesterol 183 mg/dL (0-200); HDL Direct 87 mg/dL; Triglycerides 127 mg/dL (<150)
[2024-08-21 16:33] LABS: Albumin Level 3.7 g/dL (3.5-5.1); Anion Gap 9 mmol/L (4-12); Blood Urea Nitrogen 37 mg/dL (7-17); Calcium 9.5 mg/dL (8.4-10.2); Carbon Dioxide 26 mmol/L (22-30); Chloride 104 mmol/L (98-107); Estimated Glomerular Filt Rate 25; Glucose 79 mg/dL (65-110); Phosphorus 3.8 mg/dL (2.5-4.5); Potassium 4.3 mmol/L (3.4-5.0); Sodium 139 mmol/L (137-145)
[2024-08-21 16:38] LABS: LDL Cholesterol Direct 34 mg/dL
[2024-08-21 17:32] LABS: Creatinine Urine 73.2 mg/dL; Total Protein Urine Random 11 mg/dL; Ur Ttl Prot Creatinine Ratio 0.15 mg/mg (0-0.20)
[2024-08-22 15:27] LABS: Uric Acid 9.9 mg/dL (2.5-7.5)
== END 2024-08-21 08:20 | disposition home or self-care (01) ==
LOC: ANHGOSHLAB 08:21
PROVIDERS: Internal Medicine Cardiovascular Disease; PCP Internal Medicine; Visit Provider Internal Medicine Nephrology
DX: E78.2 Mixed hyperlipidemia (principal); I12.9 Hypertensive chronic kidney disease with stage 1 through stage 4 chronic kidney disease, or unspecified chronic kidney disease; N18.4 Chronic kidney disease, stage 4 (severe); M10.371 Gout due to renal impairment, right ankle and foot
CPT/HCPCS: 36415; 80061; 80069; 82570; 84156; 84550

== ENCOUNTER 2024-09-22 07:54 | Outpatient (CLI) | payer MEDICARE, SELFPAY | END 2024-09-22 07:55 | disposition home or self-care (01) | LOC: ANHIMG 07:57 | PROVIDERS: PCP Internal Medicine; Visit Provider Internal Medicine | DX: Z12.31 Encounter for screening mammogram for malignant neoplasm of breast (principal); M85.89 Other specified disorders of bone density and structure, multiple sites; Z78.0 Asymptomatic menopausal state; Z13.820 Encounter for screening for osteoporosis | CPT/HCPCS: 77063; 77067; 77080 ==

== ENCOUNTER 2024-10-03 07:54 | Outpatient (RCR) | payer MEDICARE, SELFPAY ==
--- NOTE | 2024-10-03 09:58 | PTOPEVDC ---
Assessment and note entered by Keily Callahan, PT, DPT Thank you for referring Veronica Bowles to [facility].? An evaluation has been completed. No further treatment is needed. Evaluation Information Assessment Status Evaluation Subjective Information Pt states last week she was diagnosis with osteoporosis of the spine, states she does not currently have any pain. States she gets L hip pain when she is walking. She works at [employer], works 30-32 hours a week, primarily standing and walking. Reported Pain Level Pain Score 0: Self Report Assessment PT Clinical Summary Pt presents to therapy today for her initial evaluation with a diagnosis of age related osteoporosis. Upon evaluation, pt demonstrates scores on the Tinetti, 2 min walk, and 5xSTS that do not place her at an increased risk for falls. She does demonstrates decreased lateral hip strength feli creating and increase in pelvic motion during ambulation. Today she was issued an HEP and produced recourses for a resistance strengthening program. Skilled therapy services are not indicated at this time. Plan of Care PT Services Indicated No Treatment Frequency and eval and discharge Duration
== END 2025-01-01 23:59 | disposition home or self-care (01) ==
LOC: ANHGOSHPT 07:54
PROVIDERS: PCP Internal Medicine; Visit Provider Internal Medicine
DX: M81.0 Age-related osteoporosis without current pathological fracture (principal)
CPT/HCPCS: 97110; 97161

== ENCOUNTER 2024-11-02 15:44 | Emergency (ER) | payer OTHER, MEDICARE, SELFPAY ==
--- NOTE | ~2024-11-02 | XR_ITS ---
XR shoulder RT min 2V Ordering provider: Beatrice Mesa APRN History: . Rt shoulder pain today, lifting . Comparison: None. FINDINGS: BONES: No acute fracture or dislocation. JOINT SPACES: The acromioclavicular joint shows mild osteoarthritic changes. The glenohumeral joint i s normal. SOFT TISSUES: Normal. IMPRESSION: No acute osseous abnormality right shoulder. Reviewed, dictated and finalized at location A.
--- NOTE | 2024-11-02 15:50 | ED.UPPEXIN ---
HPI - Extremity Injury (Upper) General Chief Complaint: Back Pain/Injury Stated Complaint: R SHOULDER INJURY Time Seen by Provider: 11/02/24 15:58 Source: patient, RN notes reviewed and old records reviewed Mode of arrival: ambulatory Limitations: no limitations History of Present Illness HPI narrative: 79-year-old female presents to the [facility] with right shoulder discomfort. Reports the top of the shoulder is painful when she moves. Pain is only with range of motion and palpation. States that she was lifting things at work when she felt a soreness. Pain did radiate down into the scapula, no radiation on exam. Has full range of motion of the shoulder. Full range of motion of the elbow, wrist. Strong gripping noted. Occurred just prior to arrival Related Data Home Medications ?Medication ?Instructions ?Recorded ?Confirmed ?Last Taken ?Type aspirin 81 mg chewable tablet 81 mg PO DAILY 06/21/22 11/02/24 11/25/22 History cholecalciferol (vitamin D3) 50 50 mcg PO DAILY 06/21/22 11/02/24 11/25/22 History mcg (2,000 unit) tablet (Vitamin D3) allopurinol 100 mg tablet 100 mg PO DAILY 08/29/24 11/02/24 Unknown History clonidine HCl 0.1 mg tablet 0.1 mg PO DAILY 08/29/24 11/02/24 Unknown History Allergies Allergy/AdvReac Type Severity Reaction Status Date / Time No Known Allergies Allergy Verified 11/02/24 15:59 Review of Systems Review of Systems: All systems reviewed & are unremarkable except as noted in HPI and below Constitutional: Constitutional: Reports no additional constitutional complaints ENT: Reports system reviewed and no additional complaints, except as documented Cardiovascular: Cardiovascular: Reports no additional cardiovascular complaints, Denies chest pain and Denies dyspnea Respiratory: Respiratory: Reports no additional respiratory complaints, Denies chest congestion, Denies cough and Denies dyspnea Musculoskeletal: Musculoskeletal: Reports as per HPI, Reports arthralgias, Denies joint swelling and Denies limited range of motion Integumentary/Breasts: Skin/Breast: Reports system reviewed and no additional complaints, except as docu [facility] Past Medical History Medical History Mixed hyperlipidemia Hyperglycemia Colon cancer screening Blurry vision, left eye ASHD (arteriosclerotic heart disease) Gout COPD (chronic obstructive pulmonary disease) Essential hypertension Peripheral vascular disease Anxiety Chronic GERD CHF (congestive heart failure), NYHA class II Breast cancer screening by mammogram Kidney disease Hypertension Wrist fracture, left Wrist pain Close exposure to COVID-19 virus HLD (hyperlipidemia) CKD (chronic kidney disease) stage 4, GFR 15-29 ml/min Surgical History Surgical History H/O cataract extraction History of surgery Right leg artery surgery History of intravascular stent placement Family History Family History Father Cerebrovascular accident, Onset Age: 49 History of blood clots Kidney disorder Hypertension Mother Asthma Diabetes mellitus Sibling Congestive heart failure Social History Social History Social History: She lives with her son and she is . 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 She has no power health care attorney. Code status full code Smoking packs per day: 2 Smoking cigarettes per day: 40.0 Years smoked: 30 Smoking pack-years: 60.00 Smoking status: Former smoker Tobacco type: cigarettes Second hand tobacco smoke exposure: Yes Smoking end date: 07/26/13 Alcohol intake: current Drinks per week: 0 Substance use: never Substance use type: does not use Do You Feel Safe in your Home?: Yes Lack of Transportation: No Lack of Food: Never True Current Housing: I Have Housing Concerned About Future Housing: Decline to Answer Difficulty Paying Gas/Electric Bills: Decline to Answer Difficulty Paying for Meds: Decline to Answer Currently Unemployed: Decline to Answer Education: Decline to Answer Difficulty w/ Childcare or Family Care: Decline to Answer Living arrangements: with family Occupation/Education: retired Additional occupation/education comments: [employer] Gender identity (if verbalized by the patient): Female Spiritual care concerns: No Comments At the time of my signature, I reviewed and agree with the nursing past medical, surgical, social, and family history. There is no relevant family history pertinent to the patient complaint. Exam Const: General: cooperative, healthy appearing, comfortable, no acute distress, well developed, alert and well nourished Nutritional Appearance: well nourished Orientation/consciousness: patient oriented x3 Limitations: no limitations HENMT: Head: normal to inspection Eyes: General: appearance normal, both eyes and all related structures Alignment and Position: alignment normal Neck: Neck: normal visual inspection, full ROM, no lymphadenopathy and no meningeal signs Chest: Chest palpation & inspection: normal inspection of the chest Resp: Effort & Inspection: normal respiratory effort and able to speak in complete sentences Auscultation: clear to auscultation bilaterally, no crackles, no rales, no rhonchi and no wheezes Cardio: Rate: regular rate Skin: General skin exam: normal color and no rashes or lesions noted Neuro: General: patient oriented x3, gait normal, moves all extremities and no meningeal signs Cognition (Neuro): normal cognition Speech: normal speech Gait exam (Neuro): Normal gait present Extrem: General: normal to inspection, full ROM, capillary refill normal and normal gait Right upper extremity: shoulder/upper arm tenderness (Top of shoulder) and normal ROM; no swelling, no abrasions, no lacerations, no ecchymosis, no crepitus, no foreign bodies, no penetrating wound and no deformity, elbow/forearm normal to inspection and normal ROM, wrist normal to inspection and normal ROM and Extremity exam: right hand normal to inspection, normal capillary refill and neuromotor exam normal wrist extension normal, thumb opposition normal, thumb IP flexion normal, thumb ADduction normal and fingers 2-5 ABduction normal Psych: Appearance: grossly normal and well kempt Mental Status: mental status grossly normal Speech and movement: Normal speech and movement present and Clear speech present Affect: normal affect Attitude: cooperative Course Course Level of Care: Express Care Visit Vital Signs Vital signs: Vital Signs Temperature 97.9 F 11/02/24 16:00 Pulse Rate 54 L 11/02/24 16:00 Respiratory Rate 16 11/02/24 16:00 Blood Pressure 208/69 H 11/02/24 16:00 Pulse Oximetry 100 11/02/24 16:00 Temperature 97.9 F 11/02/24 16:00 Pulse Rate 54 L 11/02/24 16:00 Respiratory Rate 16 11/02/24 16:00 Blood Pressure 160/80 H 11/02/24 16:58 Pulse Oximetry 100 11/02/24 16:00 Reviewed MDM - Extremity Injury (Upper) MDM Narrative Medical decision making narrative: Patient sitting in exam. Nontoxic, blood pressure elevated reports that she is on blood pressure medication and does report taking it every day. Patient in no acute distress. Patient presents right shoulder pain after lifting items at work X-ray negative Exam consistent with muscle strain. Patient appropriate for outpatient treatment with close follow Discharge instructions reviewed with patient, as well as provided in writing per nursing staff. The instructions also include specific and strict return/GO TO THE ER as well as f/u information. All questions have been answered, and the patient deny any further questions with discharge and discharge plan. Some parts of this dictation were generated by voice recognition software and may contain typographical and/or grammatical inaccuracies. Differential Diagnosis Differential diagnosis: Likely other (Shoulder sprain, strain, muscle strain, fracture, dislocation) Imaging Data Radiologist's impression: XR shoulder RT min 2V Ordering provider: Beatrice Mesa APRN History: . Rt shoulder pain today, lifting . Comparison: None. FINDINGS: BONES: No acute fracture or dislocation. JOINT SPACES: The acromioclavicular joint shows mild osteoarthritic changes. The glenohumeral joint is normal. SOFT TISSUES: Normal. IMPRESSION: No acute osseous abnormality right shoulder. Critical Care Time Critical Care Time Critical Care Time: No Discharge Plan Discharge Clinical Impression: Muscle strain of right shoulder, Osteoarthritis Patient Disposition: Home Condition: Stable Instructions: Antibiotic Form, Osteoarthritis (ED), Shoulder Sprain (ED) Additional Instructions: Your Xray did not show a fracture. It is recommended you follow-up with your primary care provider within 2 weeks have your blood pressure rechecked. Your regional blood pressure was 208/69, your recheck blood pressure was 160/80. Ice should be applied to help reduce swelling. It can be used for 20 to 30 minutes, every 2-3 hours while awake. Do not apply ice directly to your skin. you can use topical such as Biofreeze, Alex-Pacheco or Aspercreme. Take Tylenol 650mg every 6-8 hours as needed for pain Please schedule a follow-up visit with your personal physician for further evaluation and treatment within 2 weeks especially if symptoms persist. For new or worsening symptoms go directly to the emergency room Patient Language: Guamanian Prescriptions: No Action potassium chloride 10 mEq tablet extended release 10 meq PO DAILY Qty: 90 2RF allopurinol 100 mg tablet 100 mg PO DAILY clonidine HCl 0.1 mg tablet 0.1 mg PO DAILY aspirin 81 mg Tablet,Chewable 81 mg PO DAILY cholecalciferol (vitamin D3) [Vitamin D3] 50 mcg (2,000 unit) Tablet 50 mcg PO DAILY nebivolol 10 mg tablet See Rx Instructions .ROUTE .COMPLEX Qty: 90 3RF Dose Instruction: TAKE 1 TABLET BY MOUTH DAILY Rx Instructions: TAKE 1 TABLET BY MOUTH DAILY amlodipine [Norvasc] 10 mg tablet 10 mg PO DAILY Qty: 90 1RF atorvastatin 20 mg tablet 20 mg PO DAILY Qty: 90 1RF calcitriol 0.25 mcg capsule See Rx Instructions .ROUTE .COMPLEX Qty: 12 12RF Dose Instruction: TAKE 1 CAPSULE BY MOUTH EVERY WEDNESDAY, WEDNESDAY, WEDNESDAY Rx Instructions: TAKE 1 CAPSULE BY MOUTH EVERY WEDNESDAY, WEDNESDAY, WEDNESDAY hydralazine 25 mg tablet See Rx Instructions .ROUTE .COMPLEX Qty: 270 2RF Dose Instruction: TAKE 1 TABLET BY MOUTH THREE TIMES DAILY Rx Instructions: TAKE 1 TABLET BY MOUTH THREE TIMES DAILY furosemide [Lasix] 40 mg tablet 40 mg PO DAILY Qty: 90 1RF clopidogrel 75 mg tablet See Rx Instructions .ROUTE .COMPLEX Qty: 90 0RF Dose Instruction: TAKE 1 TABLET BY MOUTH DAILY Rx Instructions: TAKE 1 TABLET BY MOUTH DAILY Follow-up/Referrals: Rafita Carrion DO [Primary Care Provider] - 1 Week (express care follow up ) Stand Alone Forms: Work/School Release IP Time of Disposition: 16:50
[2024-11-02 16:00] VITALS: BP 208/69; PULSE 54; RESP 16; TEMP 36.6; O2SAT 100
[2024-11-02 16:58] VITALS: BP 160/80
== END 2024-11-02 16:58 | disposition home or self-care (01) ==
PROVIDERS: Emergency Provider Nurse Practitioner; PCP Internal Medicine
DX: S46.911A Strain of unspecified muscle, fascia and tendon at shoulder and upper arm level, right arm, initial encounter (principal); X50.3XXA Overexertion from repetitive movements, initial encounter; Y99.0 Civilian activity done for income or pay; M19.011 Primary osteoarthritis, right shoulder; Z87.891 Personal history of nicotine dependence; E78.2 Mixed hyperlipidemia; I25.10 Atherosclerotic heart disease of native coronary artery without angina pectoris; I13.0 Hypertensive heart and chronic kidney disease with heart failure and stage 1 through stage 4 chronic kidney disease, or unspecified chronic kidney disease; N18.4 Chronic kidney disease, stage 4 (severe); I50.9 Heart failure, unspecified; J44.9 Chronic obstructive pulmonary disease, unspecified; I73.9 Peripheral vascular disease, unspecified; K21.9 Gastro-esophageal reflux disease without esophagitis; E78.5 Hyperlipidemia, unspecified; Z98.49 Cataract extraction status, unspecified eye; Z79.82 Long term (current) use of aspirin
CPT/HCPCS: 73030; 99213; G0463

== ENCOUNTER 2024-12-26 08:03 | Outpatient (CLI) | payer MEDICARE, SELFPAY ==
--- OUTSIDE RECORDS SUMMARY | 2024-12-26 08:08 | XMS_ITS | Clinical Summary ---
Author Organization [facility] [employer] Address [address] [place] [address] Care Team Providers Care Global Cmo Name Role Phone Rafita Carrion DO Primary Care Provider [phone] Source Comments [facility] [employer],non-owned Affiliates and Associated Physician Practices is amultiple site organization consisting of ambulatory clinics and hospital sitesin [place], [place], [place] and [place]. This disclosure is being madepursuant to the Care Everywhere program and may not contain all information available regarding this patient. Last updated 18.[place] [employer] Allergies No known active allergies Medications * Be aware that medications may not be up to date on this document. Alwaysverify current medications with the patient. atorvastatin (LIPITOR) 20 MG tablet Take 1 [...] tablet by mouth 2 times daily Active potassium chloride ER 10 MEQ tablet Take 1 (one) tablet by mouth once daily 09/09/2024 Active hydroCHLOROthia zide (Hydrodiuril) 25 MG tablet Take 1 (one) tablet by mouth once daily Active Colchicine 0.6 MG capsule TAKE 1 CAPSULE BY MOUTH THE MORNING OF 10/29/2023. 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 02/13/2019 Carotid stenosis, bilateral 02/13/2019 PAD (peripheral artery disease) 01/16/2019 Encounters Date Type Department Care Team Description 11/07/2024 4:15 PM CDT Office Visit [facility] - Vascular [facility] [address] [place] [address] Narayan Florse MD PAD (peripheral artery disease) (Primary Dx) 11/07/2024 1:45 PM CDT - 11/07/2024 11:59 PM CDT Hospital Encounter [facility] [place] [address] Narayan Flores MD Discharge Disposition: Home or Self Care 11/07/2024 1:45 PM CDT - 11/07/2024 11:59 PM CDT Hospital Encounter [facility] [place] [address] Narayan Flores MD Discharge Disposition: Home or Self Care 11/07/2024 Travel from Last 3 Months Immunizations Immunization Administration Dates Next Due INFLUENZA VACCINE 03/30/2022 Family History Relation Name Status Comments Father Stroke, Kidney Failure Mother Emphysema Social History Tobacco Use Types Packs/Day Years Used Date Smoking Tobacco: Former Cigarettes Q uit: 2013 Smokeless Tobacco: Never Tobacco Cessation:Counseling Given: No Comments No Sex and Gender Information Value Date Recorded Sex Assigned at Not on file Legal Sex Female 9:34 AM CDT Gender Identity Not on file Sexual Orientation Not on file Last Filed Vital Signs Vital Sign Reading Time Taken Comments Blood Pressure 187/73 11/07/2024 3:22 PM CDT Pulse 50 11/07/2024 3:19 PM CDT Temperature 36.4 C (97.6 F) 11/07/2024 3:19 PM CDT Respiratory Rate 18 11/09/2023 1:20 PM CDT Oxygen Saturation 93% 11/07/2024 3:19 PM CDT Inhaled Oxygen Concentration - - Weight 59.9 kg (132 lb) 11/07/2024 3:19 PM CDT Height 165.1 cm (5' 5) 11/07/2024 3:19 PM CDT Body Mass Index 21.97 11/07/2024 3:19 PM CDT Plan of Treatment Health Maintenance [...] VACCINE ( - 2023-2 5 season) 2024 DEPRESSION SCREENING 07/26/2024 MEDICARE AWV CALENDAR YEAR 2024 INFLUENZA VACCINE Completed 04/06/2024, 03/30/2022, 03/28/2019 HEPATITIS B VACCINE Aged Out No longe r eligible based on patient's age to complete this topic HIB VACCINE Aged Out No longer eligi ble based on patient's age to complete this topic HPV VACCINE Aged Out No longer eligi ble based on patient's age to complete this topic MENINGOCOCCAL (Group B) VACCINE SHARED DECISION-MAKING Aged Out No longer eligible based on patient's age to complete this topic MENINGOCOCCAL GROUPS A/C/Y/W VACCINE Aged Out No longer eligible b ased on patient's age to complete this topic Procedures Procedure Name Priority Date/Time Associated Diagnosis Comments VAS RIGHT ARTERIAL DUPLEX LE Routine 11/07/2024 2:57 PM CDT PAD (peripheral artery disease) VAS ARTERIAL ANKLE ARM INDEX Routine 11/07/2024 2:56 PM CDT PAD (peripheral artery disease) from Last 3 Months Results * VAS RIGHT ARTERIAL DUPLEX LE (11/07/2024 2:57 PM CDT) Anatomical Region Laterality Modality Lower Extremity Intravascular Ul trasound 11/07/2024 1:5 9 PM CDT Narrative Procedure Note Narayan Flores MD - 11/07/2024 us Narayan Flores MD VASCULAR LAB ORDERABLES Ed ited Result - Final * VAS ARTERIAL ANKLE ARM INDEX (11/07/2024 2:56 PM CDT) Anatomical Region Laterality Modality Ankle / Foot, Upper Extremity In travascular Ultrasound 11/07/2024 2:06 AM CDT Narrative Procedure Note Narayan Flores MD - 11/07/2024 us Narayan Flores MD VASCULAR LAB ORDERABLES Ed ited Result - Final from Last 3 Months Insurance (Home) [id number] MANAGED MEDICARE ADV [facility] MANAGED MEDICARE ADV MEDICARE MEDICARE MEDICARE MEDICARE Member Subscriber Plan / Payer ( fective 2012-Present) Name:Zaira Bowles Member ID:[id number] Relation to Subscriber:Self Name:ZAIRA BOWLES Subscriber ID:[id number] Payer ID:Not on file Group ID:Not on file Type:Medicare Address: [place] [id number] MEDICARE Member Subscriber Plan / Payer ( fective 2012-Present) Name:BowlesAissatouda Member ID:[id number] Relation to Subscriber:Self Name:ZAIRA BOWLES Subscriber ID:[id number] Payer ID:Not on file Group ID:Not on file Type:Medicare Address: [place] [id number] MEDICARE MEDICARE MEDICARE MEDICARE MEDICARE MEDICARE MEDICARE Care Teams Global Cmo Relationship Specialty Start Date End Date Rafita Carrion DO PCP - General 08/17/22
--- OUTSIDE RECORDS SUMMARY | 2024-12-26 08:08 | XMS_ITS | Patient Health Record ---
Author Organization [facility] Address [address] [place], [place] [id number] Care Team Providers Care Service Engineer Name Role Phone Rafita Carrion Unavailable Unavailable ADOLFO FORD Unavailable [phone] Allergies No Known Allergies Reason For Referral No Information Medications Medication SIG (Take, Route, Frequency, Duration) Notes Start Date End Date Status hydrALAZINE HCl 25 MG 1 tablet with [...] 1 tablet Orally Once a day Active Immunizations Vaccine Route Administration Date Status Comme nts Influenza, high dose seasonal Unknown 11/08/2023 Refuse d Pneumococcal conjugate PCV 13 Unknown 11/08/2023 Refuse d Social History Tobacco Use: Social History Observation Description Date Details (start date - stop date) Former Smoker NA - NA Tobacco Control (Standard) Question Answer Notes Tobacco use: Former smoker Vital Signs Height-cm 165.1 cm 02/07/2024 Weight-kg 63.5 kg 02/07/2024 Height 65 in 02/07/2024 Weight 140 lbs 02/07/2024 BMI 23.29 kg/m2 02/07/2024 Encounters Encounter Location Date Provider Diagnosis [facility] [address] [place], [place] [id number] 01/10/2024 ADOLFO LILIANA Acquired keratosis [keratoderma] palmaris et plantaris L85.1 ; Plantar fascial fibromatosis M72.2 and Pain in right foot M79.671 [facility] [address] [place], [place] [id number] 02/07/2024 ADOLFO SUMMERSISIS Acquired keratosis [keratoderma] palmaris et plantaris L85.1 [...] use of orthotic devices. Continue PowerStep Inserts 02/07/2024 Acquired keratosis [keratoderma] [...] foot (ICD-10 - M79.671) Plan Of Treatment No Information Insurance Providers Payer Name Payer Address Payer Phone Subscriber Number Group Number Insured Name Patient Relationship to Insured Coverage Start Date Coverage End Date [facility] [address] [address] [place], [place] [id number] Veronica Bowles Self - patient is the insured Medical (General) History Medical History History ICD Code Leg/Feet cramps Liver disease hypertension varicose veins Surgical History Surgery Date(Month/Year) Left Leg Right Leg
--- OUTSIDE RECORDS SUMMARY | 2024-12-26 08:08 | XMS_ITS | Patient Health Record ---
Author Organization [facility] Address [address] [place] [address] Support Name Relationship Address Phone Shayne Barton Emergency Contact [address] [place] [address] Veronica Bowles Guarantor Unknown [phone] Allergies No Known Allergies Reason For Referral No Information Medications Medication SIG (Take, Route, Frequency, Duration) Notes Start Date End Date Status Bystolic 20 MG for 90 Activ e Atorvastatin Calcium 20 MG 1 tab(s) oral ly once a day for 30 day(s) 12/20/2020 Active hydroCHLOROthiazide 25 MG for 90 Active amLODIPine Besylate 5 MG 1 tab(s) orally once a day for 30 day(s) 12/20/2020 Active Social History Tobacco Use: Social History Observation Description Date Details (start date - stop date) Never Smoker NA - NA Smoking Question Answer Notes Are you a: nonsmoker Problems Problem Type SNOMED Code ICD Code Onset Dates Problem Status W/U Status Risk Notes Problem [id number] Hypertension, uncontrolled (I10) Active confirmed Plan Of Treatment No Information Insurance Providers Payer Name Payer Address Payer Phone Subscriber Number Group Number Insured Name Patient Relationship to Insured Coverage Start Date Coverage End Date [facility] [address] [address] [place] [address] [phone] [id number] Veronica Bowles Self - patient is the insured Medical (General) History Surgical History Surgery Date(Month/Year) Hospitalization History Reason Date(Month/Year) hypertension surgery
--- OUTSIDE RECORDS SUMMARY | 2024-12-26 08:08 | XMS_ITS | Continuity of Care Document ---
Author Name [facility] Address [address] [place] [address] Organization [facility] Care Team Providers Care Physician'S Aide Name Role Phone [facility] Unavailable Unavailable Problems Problem Status Onset Date Problem Type Date of Resolution Comme nts Source Carotid artery stenosis (disorder) Active Condition Hypertensive disorder, systemic arterial (disorder) Active Condition Peripheral vascular disease (disorder) Active Condition Encounters Location Location Details Encounter Type Encounter Number Reason For Visit Attending Provider ADM Date DC Date Status Source [facility]CH[facility]LL [id number] 6 MTH FU/CAROTI D,KANG 11:30 PM Shirley Crowley Cancel [facility] [id number] 6 MTH FU/CAROTI D,KANG 11:30 PM/SHIRLEY 11:50 Shirley Crowley Cancel [facility] [id number] 6 MTH FU/CAROTI D,KANG 11:30 PM/SHIRLEY 11:50 Ye Morse Cancel [facility] [id number] MTH FU/CAROTI D,KANG 11:30 PM Ye Morse Cancel [facility] [id number] 6 month carotid, KANG see Shirley Saldaña Cancel [facility] [id number] month carotid Shirley Lakhaniughan Cancel [facility] NO TECH[facility]LL [id number] MO FU CAROTID Ye Morse Cancel [facility] NO TE[facility] [id number] MO FU CAROTID Shirley Lakhaniughan Cancel [facility] NO TECHBILL [id number] 6 MO FU CAROTID Ye Morse Cancel [facility] NO [facility] [id number] 6 [place] FU CAROTID Shirley Lakhaniughan Cancel [facility] NO TECHBILL [id number] 6 MO FU CAROTID Ye Paytonrey Cancel [facility] NO TECHBILL [id number] 6 MO FU CAROTID Shirley Lakhaniughan Cancel [facility] NO TECHBILL [id number] YR FU CAROTID/A BIS/LLE ARTERIAL Ye Morse Cancel [facility] NO TECHBILL [id number] YR FU ABIS,[place] TID,LLE ARTERIAL DUPLEX Shirley Lakhaniughan Cancel [facility] NO TECHBILL [id number] 6 MTH FU/CAROTI D,KANG 11:30 PM/SHIRLEY 11:50 [facility] NO TECH[facility]LL [id number] 6 MTH FU/CAROTI D,KANG 11:30 PM/SHIRLEY 11:50 Ye Morse Cancel [facility]
--- OUTSIDE RECORDS SUMMARY | 2024-12-26 08:08 | XMS_ITS | Clinical Summary ---
Author Organization [email or web address] Address [address] Aritan: Epic Prelude ADT [place] [address] Care Team Providers Care Career Development Facilitator Name Role Phone Unavailable Primary Care Provider Unavailabl e Immunizations Immunization Administration Dates Next Due (COMIRNATY)(12 YR UP) COVID- 19 VACCINE, MRNA, SPIKE PROTEIN, LNP, YOAV(PF) 30 MCG/0.3 ML IM SUSP 04/15/2024 (PREVNAR 20)(6 WKS UP) PNEUM OCOCCAL CONJUGATE VACCINE 20-VALENT (PCV20), POLYSACCHARIDE [id number] CONJUGATE, ADJUVANT 0.5 ML (PF) IM 04/22/2024 [...] ) (1 - 1-dose 75+ series) 2022 COVID-19 Vaccine (2 - season) 2024 INFLUENZA VACCINE Completed 04/06/2024, , 04/23/2022 PNEUMOCOCCAL VACCINE 50+ YEARS Completed 04/22/2024 ZOSTER VACCINE Completed 07/24/2024, 04/27/2024 Insurance RX ALLWIN DATA Medicare Part B RX [employer] RX Member Subscriber Plan / Payer (Ef fective for All Dates) Name:Zaira Bowles Relation to Subscriber:Self Name:BowlesAissatouda Payer ID:Not on file Group ID:[id number] Type:RX Medicare Part D Address: ED[place] ROSALES
[2024-12-26 12:17] LABS: Vitamin D 25 Hydroxy 46.5 ng/mL
[2024-12-26 12:55] LABS: Albumin Level 3.6 g/dL (3.5-5.1); Anion Gap 6 mmol/L (4-12); Blood Urea Nitrogen 42 mg/dL (7-17); Calcium 9.7 mg/dL (8.4-10.2); Carbon Dioxide 27 mmol/L (22-30); Chloride 104 mmol/L (98-107); Estimated Glomerular Filt Rate 21; Glucose 140 mg/dL (65-110); Phosphorus 4.1 mg/dL (2.5-4.5); Potassium 3.8 mmol/L (3.4-5.0); Sodium 137 mmol/L (137-145)
[2024-12-26 13:03] LABS: Parathyroid Intact 54.9 pg/mL (14.5-75.2)
[2024-12-26 13:22] LABS: Total Protein Urine Random 13 mg/dL; Ur Ttl Prot Creatinine Ratio 0.13 mg/mg (0-0.20)
== END 2024-12-26 08:04 | disposition home or self-care (01) ==
LOC: ANHGOSHLAB 08:05
PROVIDERS: PCP Internal Medicine; Visit Provider Internal Medicine Nephrology
DX: I12.9 Hypertensive chronic kidney disease with stage 1 through stage 4 chronic kidney disease, or unspecified chronic kidney disease (principal); N18.4 Chronic kidney disease, stage 4 (severe); N25.81 Secondary hyperparathyroidism of renal origin; E55.9 Vitamin D deficiency, unspecified
CPT/HCPCS: 36415; 80069; 82306; 82570; 83970; 84156

== ENCOUNTER 2025-01-03 08:49 | Outpatient (CLI) | payer OTHER, SELFPAY ==
--- NOTE | ~2025-01-03 | XR_ITS ---
XR cervical spine min 6V Ordering provider: Faby Marcelino NP History: . Cervicalgia s/p lifting box 2 mos ago . Comparison: None. FINDINGS: VERTEBRAL BODIES: Minimal anterolisthesis at the level of C4-C5. Normal height and alignment. No visi ble fracture or subluxation. The dens is intact. Degenerative changes of the spine. DISK SPACES: Narrowing of the disc C5-C6, C6-C7 and C7-T1. Multilevel facet joint disease. Narrowing of the intervertebral foramina more on the right side. Multilevel uncovertebral joint osteoarthritic changes. PARASPINOUS SOFT TISSUES: No prevertebral soft tissue swelling. IMPRESSION: No acute osseous abnormality cervical spine. Minimal anterolisthesis at the level of C4-C5. Multilevel degenerative disc disease. Reviewed, dictated and finalized at location A.
== END 2025-01-03 08:50 | disposition home or self-care (01) ==
PROVIDERS: PCP Nurse Practitioner; Visit Provider Nurse Practitioner
DX: M50.321 Other cervical disc degeneration at C4-C5 level (principal); M48.02 Spinal stenosis, cervical region; M50.322 Other cervical disc degeneration at C5-C6 level; M50.323 Other cervical disc degeneration at C6-C7 level; M50.33 Other cervical disc degeneration, cervicothoracic region
CPT/HCPCS: 72052

== ENCOUNTER 2025-04-25 15:30 | Outpatient (RCR) | payer OTHER, MEDICARE, SELFPAY ==
--- NOTE | 2025-02-23 16:23 | PTOPEVAL1 ---
Assessment and note entered by Rich Nunez PT Evaluation Information Assessment Status Evaluation ICD-10 Condition Codes (PT) Cervicalgia M54.2,Radiculopathy, cervical M54.13, Pain in right shoulder M25.511 Onset Mid October Subjective Information Pt states symptoms started when lifting [place] at work and developed a sharp pain in the back of the R shoulder. Pt states x rays showed arthritis and in her shoulder but previously had no injuries or pain in R shoulder. 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 Pt notes difficulty lifting arm when checking. Pt states she has good days and bad days where she has more pain and greater difficulty with reaching , dressing and housework. Reported Pain Level Pain Score 2: Self Report Assessment PT Clinical Summary Patient presents to physical therapy with a primary issue of neck pain that radiates to R shoulder since mid October. Patient demonstrates deep neck flexor and scapular weakness, pain, decreased mobility, abnormal posture, and decreased flexibility that limit their ability to perform activities of daily living and functional movements at work. Patient will benefit from skilled physical therapy to address the above listed deficits and return to prior level of function. Home exercise program instructed and written handout provided, exercises tolerated well with no adverse effects to note post-session. Patient was educated on importance of adherence to home exercise program. Patient was also educated on anatomy, prognosis, home modalities, and plan of care. Plan of Care Interventions Hot Pack/Cold Pack,Manual Therapy,Neuro Re- education,Therapeutic Activities,Therapeutic Exercise,Other PT Services Indicated Yes Treatment Frequency and 1-2x week 6 visits Duration These treatments will address the objective and functional deficits as defined above. The patient will be advanced safely and appropriately in order for the patient to progress towards his/her prior level of function. Additional exercises will be introduced and as well as a comprehensive home exercise program upon discharge, if needed, ?to ensure carryover of functional gains achieved in the clinic. This treatment plan has been reviewed and agreement upon by the patient.
--- NOTE | 2025-02-23 16:23 | OPREHPOC ---
Outpatient Therapy Plan of Care This is a Multidisciplinary Plan of Care that may contain components documented by all disciplines (PT, OT, and ST.) PT Problem 1 PT Problem #1 Knowledge Deficit PT Goal 1 Goal / Goal Update 1. Patient to demonstrate independence with HEP for improved self-reliance of symptom management. Target Visit 4 PT Problem 2 PT Problem #2 Pain PT Goal 1 Goal / Goal Update 1. Patient to decrease subjective reports of pain to <3/10 for improved ADL tolerance for 2 weeks. 2. Patient to report an improvement in radiating symptoms to R shoulder by 50% to increase ability to perform ADLs. 3. Patient will score </=20% disability on the QuickDash to demonstrate meaningful improvement in patient's quality of life. Target Visit 6 PT Problem 3 PT Problem #3 Impaired Range of Motion PT Goal 1 Goal / Goal Update 1. Patient to demonstrate an increase of cervical rotation and extension active range of motion by 25% to improve safety with driving and while working Target Visit 6 PT Problem 4 PT Problem #4 Impaired Strength PT Goal 1 Goal / Goal Update 1. Pt will show improvements in periscapular strength and deep neck flexor strength by showing improvements in resting posture. Target Visit 6
--- NOTE | 2025-04-25 16:03 | PTOPDC ---
Assessment and note entered by Rich Nunez, PT Evaluation Information Assessment Status Discharge ICD-10 Condition Codes (PT) Cervicalgia M54.2,Radiculopathy, cervical M54.13, Pain in right shoulder M25.511 Onset Mid October Subjective Information Pt states she continues to have shoulder pain but it is not as sharp and much more tolerable then it was previously. Pt notes she is working full duties but does make some modifications to tasks. Reported Pain Level Pain Score 2: Self Report Assessment PT Clinical Summary Patient's R shoulder and neck pain has improved overall as evidenced of decreased severity of symptoms and increases in mobility, strength, and overall functional use of the extremity. Patient has met therapy goals and is pleased with progress made towards the remaining goals. Patient to discharge from physical therapy this date and continue with updated home exercise program as instructed. Patient to contact physical therapist or primary care provider if questions or concerns arise. Plan of Care PT Services Indicated No
== END 2025-04-26 15:42 | disposition home or self-care (01) ==
LOC: ANHGOSHPT 15:30
PROVIDERS: PCP Internal Medicine; Visit Provider Nurse Practitioner
DX: M54.2 Cervicalgia (principal); M25.511 Pain in right shoulder
CPT/HCPCS: 97110; 97112; 97140; 97161

== ENCOUNTER 2025-04-30 09:08 | Outpatient (CLI) | payer MEDICARE, SELFPAY ==
--- OUTSIDE RECORDS SUMMARY | 2025-04-30 09:46 | XMS_ITS | Encounter Summary ---
Author Organization [facility] Address [address] [place] [address] Phone Care Team Providers Care Sleeve Sewer Name Role Phone aNrayan Brennan MD Primary Care Provider Encounter Details Date Type Department Care Team (Late st Contact Info) Description 09/24/2016 Legacy Encounter - Labs Kidney Diseases, Hypertension and Primary Care of [facility] [address] [address] Alexandre Ornelas MD [facility] S [facility] [address] [place] [address] Social History Tobacco Use Types Packs/Day Years Used Date Smoking Tobacco: Never Assessed Comments Unknown Sex and Gender Information Value Date Recorded Sex Assigned at Not on file Legal Sex Female 10:30 AM [facility] Gender Identity Not on file Sexual Orientation Not on file documented as of this encounter Plan of Treatment Not on file documented as of this encounter Procedures Procedure Name Priority Date/Time Associated Diagnosis Comments DPS CONVERSION - LAB RESULT SCAN PROCEDURE 09/24/2016 documented in this encounter Results * DPS CONVERSION - LAB RESULT SCAN PROCEDURE (09/24/2016) us Alexandre Ornelas MD LAB BLOOD ORDERABLES Final Re sult documented in this encounter Visit Diagnoses Not on filedocumented in this encounter Care Teams Sleeve Sewer Relationship Specialty Start Date End Date Narayan Brennan MD [address] [place] [address] PCP - General Internal Medicine 09/04/19 documented as of this encounter
--- OUTSIDE RECORDS SUMMARY | 2025-04-30 09:46 | XMS_ITS | Patient Health Record ---
Author Organization [facility] Address [address] [place], [place] [address] Care Team Providers Care Mfg Assoc Name Role Phone Rafita Carrion Unavailable Unavailable Allergies No Known Allergies Reason For Referral [...] Question Answer Notes Tobacco use: Former smoker Plan Of Treatment No Information Insurance Providers Payer Name Payer Address Payer Phone Subscriber Number Group Number Insured Name Patient Relationship to Insured Coverage Start Date Coverage End Date [facility] [address] [address] [place], [place] [id number] Veronica Bowles Self - patient is the insured Medical (General) History Medical History History ICD Code Leg/Feet cramps Liver disease hypertension varicose veins Surgical History Surgery Date(Month/Year) Left Leg Right Leg
--- OUTSIDE RECORDS SUMMARY | 2025-04-30 09:46 | XMS_ITS | Encounter Summary ---
Author Organization [facility] Address [address] [place] [address] Phone Care Team Providers Care Boot Lace Cutter Machine Name Role Phone Narayan Brennan MD Primary Care Provider [phone] Encounter Details Date Type Department Care Team (Late st Contact Info) Description 09/25/2015 Abstract Kidney Diseases, Hypertension and Primary Care of [facility] S [facility] [address] [place] [address] Sruthi Ornelas MD [address] [facility] [address] [place] [address] Social History Tobacco Use Types Packs/Day Years Used Date Smoking Tobacco: Never Assessed Comments Unknown Sex and Gender Information Value Date Recorded Sex Assigned at Not on file Legal Sex Female 10:30 AM [facility] Gender Identity Not on file Sexual Orientation Not on file documented as of this encounter Plan of Treatment Not on file documented as of this encounter Visit Diagnoses Not on filedocumented in this encounter Care Teams Boot Lace Cutter Machine Relationship Specialty Start Date End Date Narayan Brennan MD [address] [place] [address] PCP - General Internal Medicine 09/04/19 documented as of this encounter
--- OUTSIDE RECORDS SUMMARY | 2025-04-30 09:46 | XMS_ITS | Encounter Summary ---
Author Organization [facility] Address [address] [place] [address] Phone Care Team Providers Care Churn Driller Helper Name Role Phone Narayan Brennan MD Primary Care Provider [phone] Encounter Details Date Type Department Care Team (Late st Contact Info) Description 09/25/2015 Legacy Encounter - Labs Kidney Diseases, Hypertension and Primary Care of [facility] [address] [address] Sruthi Ornelas MD [address] [facility] [address] [place] [address] Social History Tobacco Use Types Packs/Day Years [...] (09/25/2015) Sruthi Ornelas MD LAB BLOOD ORDERABLES Final Resul t documented in this encounter Visit Diagnoses Not on filedocumented in this encounter Care Teams Churn Driller Helper Relationship Specialty Start Date End Date Narayan Brennan MD [address] [place] [address] PCP - General Internal Medicine 09/04/19 documented as of this encounter
--- OUTSIDE RECORDS SUMMARY | 2025-04-30 09:46 | XMS_ITS | Encounter Summary ---
Author Organization [facility] Address [address] [place] [address] Phone Care Team Providers Care Radio Officer Name Role Phone Narayan Brennan MD Primary Care Provider [phone] Encounter Details Date Type Department Care Team (Late st Contact Info) Description 09/25/2015 Abstract Kidney Diseases, Hypertension and Primary Care of [facility] S [facility] [address] [place] [address] Sruthi Ornelas MD [address] [facility] [address] [place] [address] Social History Tobacco Use Types Packs/Day Years [...] on filedocumented in this encounter Care Teams Radio Officer Relationship Specialty Start Date End Date Narayan Brennan MD [address] [place] [address] PCP - General Internal Medicine 09/04/19 documented as of this encounter
--- OUTSIDE RECORDS SUMMARY | 2025-04-30 09:46 | XMS_ITS | Patient Health Record ---
Author Organization [facility] Address [address] [facility] [facility] [place] [address] Support Name Relationship Address Phone Shayne Barton Emergency Contact [address] [place] [address] Veronica Bowles Guarantor Unknown [phone] Allergies No Known Allergies Reason For Referral No Information Medications Medication SIG (Take, Route, Frequency, Duration) Notes Start Date End Date Status Bystolic 20 MG ; Duration: 90 Active Atorvastatin Calcium 20 MG 1 tab(s) oral ly once a day; Duration: 30 day(s) 12/20/2020 Active hydroCHLOROthiazide 25 MG ; Duration: 90 Active amLODIPine Besylate 5 MG 1 tab(s) orally once a day; Duration: 30 day(s) 12/20/2020 Active Social History Tobacco Use: Social History Observation Description Date Details (start date - stop date) Never Smoker NA - NA Smoking Question Answer Notes Are you a: nonsmoker Problems Problem Type SNOMED Code ICD Code Onset Dates Problem Status W/U Status Risk Notes Problem Essential hypertension (59576348) Hypertension, uncontrolled (I10) Active confirmed Plan Of Treatment No Information Insurance Providers Payer Name Payer Address Payer Phone Subscriber Number Group Number Insured Name Patient Relationship to Insured Coverage Start Date Coverage End Date [facility] [address] [address] [place] [address] [id number] Veronica Bowles Self - patient is the insured Medical (General) History Surgical History Surgery Date(Month/Year) Hospitalization History Reason Date(Month/Year) hypertension surgery
--- OUTSIDE RECORDS SUMMARY | 2025-04-30 09:46 | XMS_ITS | Encounter Summary ---
Author Organization [facility] Address [address] [place] [address] Phone Care Team Providers Care Math And Science Instructor Name Role Phone Narayan Brennan MD Primary Care Provider [phone] Encounter Details Date Type Department Care Team (Late st Contact Info) Description 09/25/2015 Legacy Encounter - Labs Kidney Diseases, Hypertension and Primary Care of [facility] [address] [address] Sruthi Ornelas MD [address] [facility] 203 [place] [address] Social History Tobacco Use Types Packs/Day Years [...] on filedocumented in this encounter Care Teams Math And Science Instructor Relationship Specialty Start Date End Date Narayan Brennan MD [address] [place] [address] PCP - General Internal Medicine 09/04/19 documented as of this encounter
--- OUTSIDE RECORDS SUMMARY | 2025-04-30 09:46 | XMS_ITS | Encounter Summary ---
Author Organization [facility] Address [address] [place] [address] Phone Care Team Providers Care Store Product Demonstrator Name Role Phone Narayan Brennan MD Primary Care Provider [phone] Encounter Details Date Type Department Care Team (Late st Contact Info) Description 09/25/2015 Abstract Kidney Diseases, Hypertension and Primary Care of [facility] S [facility] [address] [place] [address] Sruthi Ornelas MD [address] [facility] [address] [place] [address] Social History Tobacco Use Types Packs/Day Years [...] on filedocumented in this encounter Care Teams Store Product Demonstrator Relationship Specialty Start Date End Date Narayan Brennan MD [address] [place] [address] PCP - General Internal Medicine 09/04/19 documented as of this encounter
--- OUTSIDE RECORDS SUMMARY | 2025-04-30 09:46 | XMS_ITS | Encounter Summary ---
Author Organization [facility] Address [address] [place] [address] Phone Care Team Providers Care Viscera Washer Name Role Phone Narayan Brennan MD Primary Care Provider [phone] Encounter Details Date Type Department Care Team (Late st Contact Info) Description 09/25/2015 Abstract Kidney Diseases, Hypertension and Primary Care of [facility] S [facility] [address] [place] [address] Sruthi Ornelas MD [address] [facility] [address] [place] [address] Social History Tobacco Use Types Packs/Day Years [...] on filedocumented in this encounter Care Teams Viscera Washer Relationship Specialty Start Date End Date Narayan Brennan MD [address] [place] [address] PCP - General Internal Medicine 09/04/19 documented as of this encounter
--- OUTSIDE RECORDS SUMMARY | 2025-04-30 09:46 | XMS_ITS | Encounter Summary ---
Author Organization [facility] Address [address] [place] [address] Phone Care Team Providers Care Finish Filer Name Role Phone Narayna Brennan MD Primary Care Provider [phone] Encounter Details Date Type Department Care Team (Late st Contact Info) Description 09/25/2015 Abstract Kidney Diseases, Hypertension and Primary Care of [facility] S [facility] [address] [place] [address] Sruthi Ornelas MD [address] [facility] [address] [place] [address] Social History Tobacco Use Types Packs/Day Years [...] on filedocumented in this encounter Care Teams Finish Filer Relationship Specialty Start Date End Date Narayan Brennan MD [address] [place] [address] PCP - General Internal Medicine 09/04/19 documented as of this encounter
--- OUTSIDE RECORDS SUMMARY | 2025-04-30 09:46 | XMS_ITS | Encounter Summary ---
Author Organization [facility] Address [address] [place] [address] Phone Care Team Providers Care Hourly Sign Language Interpreter Name Role Phone Narayan Brennan MD Primary Care Provider [phone] Encounter Details Date Type Department Care Team (Late st Contact Info) Description 09/25/2015 Abstract Kidney Diseases, Hypertension and Primary Care of [facility] S [facility] [address] [place] [address] Sruthi Ornelas MD [address] [facility] [address] [place] [address] Social History Tobacco Use Types Packs/Day Years [...] on filedocumented in this encounter Care Teams Hourly Sign Language Interpreter Relationship Specialty Start Date End Date Narayan Brennan MD [address] [place] [address] PCP - General Internal Medicine 09/04/19 documented as of this encounter
--- OUTSIDE RECORDS SUMMARY | 2025-04-30 09:46 | XMS_ITS | Clinical Summary ---
Author Organization [facility] Address [address] Ramon: Epic Prelude ADT [place] [address] Care Team Providers Care Woodworking Machine Operator Name Role Phone Unavailable Primary Care Provider Unavailabl e Encounters Date Type Department Care Team Description 04/03/2025 External Device Data STL ABSTRACTION Provider, Abstract from Last 3 Months Immunizations Immunization Administration Dates Next Due (COMRINATY 2024-)(12YR UP) COVID-19 VACCINE, MRNA (PF)30 MCG/0.3 ML, IM SYRINGE 04/15/2024 (PREVNAR 20)(6 WKS UP) PNEUM OCOCCAL CONJUGATE VACCINE 20-VALENT (PCV20), POLYSACCHARIDE [id number] CONJUGATE, ADJUVANT 0.5 ML (PF) IM 04/22/2024 [...] - 1-dose 75+ series) 2022 INFLUENZA VACCINE (#1) 2025 , 04/12/2023, 04/23/2022 COVID-19 Vaccine (2 - season) 2025 PNEUMOCOCCAL VACCINE 50+ YEARS Completed 04/22/2024 ZOSTER VACCINE Completed 07/24/2024, 04/27/2024 Insurance RX ALLWIN DATA Medicare Part B RX [employer] RX Member Subscriber Plan / Payer (Ef fective for All Dates) Name:Veronica Irwin Relation to Subscriber:Self Name:Veronica Irwin Payer ID:Not on file Group ID:[id number] Type:RX Medicare Part D Address: [place]
--- OUTSIDE RECORDS SUMMARY | 2025-04-30 09:46 | XMS_ITS | Encounter Summary ---
Author Organization [facility] Address [address] [place] [address] Phone Care Team Providers Care Appeals Court Associate Justice Name Role Phone aNrayan Brennan MD Primary Care Provider [phone] Encounter Details Date Type Department Care Team (Late st Contact Info) Description 01/04/2017 Office Visit Kidney Diseases, Hypertension and Primary Care of [facility] [address] [address] Alexandre Ornelas MD [address] [facility] 203 [place] [address] Social History Tobacco Use Types Packs/Day Years [...] on filedocumented in this encounter Care Teams Appeals Court Associate Justice Relationship Specialty Start Date End Date Narayan Brennan MD [address] [place] [address] PCP - General Internal Medicine 09/04/19 documented as of this encounter
--- OUTSIDE RECORDS SUMMARY | 2025-04-30 09:46 | XMS_ITS | Clinical Summary ---
Author Organization [facility] Address [address] [place] [address] Care Team Providers Care Engineering Specialist Name Role Phone Rafita Carrion DO Primary Care Provider [phone] Source Comments [facility],non-owned Affiliates and Associated Physician Practices is amultiple site organization consisting of ambulatory clinics and hospital sitesin [place], [place], [place] and [place]. This disclosure is being madepursuant to the Care Everywhere program and may not contain all information available regarding this patient. 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 MANAGED MEDICARE ADV [facility] MANAGED MEDICARE ADV MEDICARE MEDICARE MEDICARE MEDICARE Member Subscriber Plan / Payer (Ef fective 2012-Present) Name:Zaira Bowles Member ID:[id number] Relation to Subscriber:Self Name:ZAIRA BOWLES Subscriber ID:[id number] Payer ID:Not on file Group ID:Not on file Type:Medicare Address[address] MEDICARE MEDICARE MEDICARE MEDICARE MEDICARE MEDICARE MEDICARE MEDICARE Care Teams Engineering Specialist Relationship Specialty Start Date End Date Rafita Carrion DO PCP - General 08/17/22
--- OUTSIDE RECORDS SUMMARY | 2025-04-30 09:46 | XMS_ITS | Encounter Summary ---
Author Organization [facility] Address [address] [place] [address] Phone Care Team Providers Care Mechanic Field Service Name Role Phone Narayan Brennan MD Primary Care Provider [phone] Encounter Details Date Type Department Care Team (Late st Contact Info) Description 09/07/2016 Office Visit Kidney Diseases, Hypertension and Primary Care of [facility] [address] [address] Alexandre Ornelas MD [address] [facility] [address] [place] [address] Social History Tobacco Use Types Packs/Day Years [...] on filedocumented in this encounter Care Teams Mechanic Field Service Relationship Specialty Start Date End Date Narayan Brennan MD [address] [place] [address] PCP - General Internal Medicine 09/04/19 documented as of this encounter
--- OUTSIDE RECORDS SUMMARY | 2025-04-30 09:46 | XMS_ITS | Encounter Summary ---
Author Organization [facility] Address [address] [place] [id number] Phone Care Team Providers Care Manufacturing Controller Name Role Phone Narayan Brennan MD Primary Care Provider [phone] Encounter Details Date Type Department Care Team (Late st Contact Info) Description 09/07/2016 Office Visit Kidney Diseases, Hypertension and Primary Care of [facility] [address] [address] Alexandre Ornelas MD [address] [facility] [address] [place] [address] Social History Tobacco Use Types Packs/Day Years [...] on filedocumented in this encounter Care Teams Manufacturing Controller Relationship Specialty Start Date End Date Narayan Brennan MD [address] [place] [phone] PCP - General Internal Medicine 09/04/19 documented as of this encounter
--- OUTSIDE RECORDS SUMMARY | 2025-04-30 09:46 | XMS_ITS | Encounter Summary ---
Author Organization [facility] Address [address] [place] [address] Phone Care Team Providers Care Copra Sampler Name Role Phone Narayan Brennan MD Primary Care Provider [phone] Encounter Details Date Type Department Care Team (Late st Contact Info) Description 09/25/2015 Legacy Encounter - Labs Kidney Diseases, Hypertension and Primary Care of [facility] [address] [address] Sruthi Ornelas MD [address] [facility] [address] [place] [address] Social History Tobacco Use Types Packs/Day Years [...] on filedocumented in this encounter Care Teams Copra Sampler Relationship Specialty Start Date End Date Narayan Brennan MD [address] [place] [address] PCP - General Internal Medicine 09/04/19 documented as of this encounter
--- OUTSIDE RECORDS SUMMARY | 2025-04-30 09:47 | XMS_ITS | Clinical Summary ---
Author Organization [facility] Address [address] [place] [address] Phone Care Team Providers Care Echocardiographer Name Role Phone Narayan Brennan MD Primary Care Provider [phone] Allergies No known active allergies Medications atorvastatin (LIPITOR) 20 MG tablet 01/05/2020 Active BYSTOLIC 20 MG tablet 01/01/2020 Active clopidogrel (PLAVIX) 75 MG tablet 10/25/2019 Active [...] (primary) hypertension Atherosclerotic heart diseas e of [place] coronary artery without angina pectoris Peripheral vascular disease Immunizations Immunization Administration Dates Next Due Influenza, Injectable, Quadrivalent 03/28/2019 Sars-cov-2, Unspecified 11/14/2020 Family History Medical History Relation Comments Hypertension Father Kidney disease Father Nephrolithiasis Father Stroke Father COPD Mother Diabetes Mother Hypertension Mother Breast cancer Sister Relation Status Comments Father Mother Sister Social History Tobacco Use Types Packs/Day Years Used Date Smoking Tobacco: Former Cigarettes 2 30 1 984 2013 Smokeless Tobacco: Never Alcohol Use Standard Drinks/Week Comments Not Currently 0 (1 standard drink = 0.6 oz pur e alcohol) Comments Unknown Sex and Gender Information Value Date Recorded Sex Assigned at Not on file Legal Sex Female 10:30 AM [facility] Gender Identity Not on file Sexual Orientation Not on file Last Filed Vital Signs Vital Sign Reading Time Taken Comments Blood Pressure 136/74 03/18/2022 2:29 PM CDT Pulse 61 09/07/2016 12:19 PM EST Temperature 37.2 C (98.9 F) 03/18/2022 2:29 PM CDT Respiratory Rate 18 03/18/2022 2:29 PM CDT Oxygen Saturation - - Inhaled Oxygen Concentration - - Weight 73 kg (161 lb) 03/18/2022 2:29 PM CDT Height 165.1 cm (5' 5) 03/18/2022 2:29 PM CDT Body Mass Index 26.79 03/18/2022 2:29 PM CDT Plan of Treatment Health Maintenance Due Date Last Done Comments Pneumococcal PPSV23/PCV13 65 + Years / Low and Medium Risk (1 of 2 - PCV) 1997 Influenza Vaccine (#1) 2025 Insurance [employer] MEDICARE Care Teams Echocardiographer Relationship Specialty Start Date End Date Narayan Brennan MD [address] [place] [phone] PCP - General Internal Medicine 09/04/19
[2025-04-30 12:54] LABS: Hematocrit 30.7 % (37.0-47.0); Hemoglobin 9.5 g/dL (12.0-15.0); Immature Granulocyte Percent A 0.5 % (0-0.5); Lymphocytes Absolute Auto 1.54 K/mm3 (0.9-3.2); Mean Corpuscular HGB Conc 30.9 g/dl (32-36); Mean Corpuscular Hemoglobin 28.3 pg (26-34); Mean Corpuscular Volume 91.4 fl (80-100); Nucleated Red Blood Cells Absolute Auto 0.000 K/mm3 (0.0-0.012); Nucleated Red Blood Cells Perc 0.0 % (0.0-0.2); Platelet Count Result 300 k/mm3 (150-375); Red Blood Count 3.36 M/mm3 (4.2-5.4); White Blood Count 7.4 K/mm3 (4.5-10.0)
[2025-04-30 13:03] LABS: Albumin Level 3.7 g/dL (3.5-5.1); Anion Gap 7 mmol/L (4-12); Blood Urea Nitrogen 35 mg/dL (7-17); Calcium 9.4 mg/dL (8.4-10.2); Carbon Dioxide 26 mmol/L (22-30); Chloride 103 mmol/L (98-107); Estimated Glomerular Filt Rate 25; Glucose 86 mg/dL (65-110); Potassium 3.8 mmol/L (3.4-5.0); Sodium 136 mmol/L (137-145)
[2025-04-30 13:10] LABS: Total Protein Urine Random 13 mg/dL; Ur Ttl Prot Creatinine Ratio 0.20 mg/mg (0-0.20)
== END 2025-04-30 09:09 | disposition home or self-care (01) ==
LOC: ANHGOSHLAB 09:09
PROVIDERS: PCP Internal Medicine; Visit Provider Internal Medicine Nephrology
DX: I12.9 Hypertensive chronic kidney disease with stage 1 through stage 4 chronic kidney disease, or unspecified chronic kidney disease (principal); N18.4 Chronic kidney disease, stage 4 (severe)
CPT/HCPCS: 36415; 80069; 82570; 84156; 85025

== ENCOUNTER 2025-06-18 13:02 | Outpatient (CLI) | payer MEDICARE, SELFPAY ==
--- NOTE | ~2025-06-18 | CT_ITS ---
EXAMINATION:CT lung screening DATE: 06/18/2025 13:18 INDICATION: 100 pack-year history of smoking. TECHNIQUE: Computed tomography (CT) of the chest was performed without intravenous contrast. Automated exposure control and iterative reconstruction technique were employed. The dose-length product (DLP) was 64.36 mGy-cm. COMPARISON: Chest x-ray dated 11/25/2022. FINDINGS: Multiple calcified granulomatous lesions of the right lung are stable from prior chest x-ray. There are no noncalcified pulmonary nodules. Benign calcified nodules of the mediastinum representing lymph nodes in the paratracheal location are noted. No effusion. Significant calcific changes of proximal left anterior descending coronary artery. Mild cardiomegaly. Severe calcific changes of proximal celiac axis, superior mesenteric artery in the upper abdomen. IMPRESSION: 1. Benign calcified granulomatous lesions of right lung and right hilum and mediastinal lymph nodes. Continue annual the screening. Lung RADS category 2 2. Significant coronary artery calcification. Calcific atherosclerotic changes of small celiac axis, superior mesenteric artery in the upper abdomen. Reviewed, dictated and finalized at location [facility]. [facility] IMPRESSION: 1. Benign calcified granulomatous lesions of right lung and right hilum and med iastinal lymph nodes. Continue annual the screening. Lung RADS category 2 2. Significant coronary artery calcification. Calcific atherosclerotic changes of small celiac axis, superior mesenteric artery in the upper abdomen.
--- OUTSIDE RECORDS SUMMARY | 2025-06-18 15:08 | XMS_ITS | Clinical Summary ---
Author Organization [facility] Address [address] [facility] [place] [address] Care Team Providers Care Manager Pulmonary Name Role Phone Rafita Carrion DO Primary Care Provider [phone] Source Comments [facility],non-owned Affiliates and Associated Physician Practices is amultiple site organization consisting of ambulatory clinics and hospital sitesin [place], [place], [place] and [place]. This disclosure is being madepursuant to the Care Everywhere program and may not contain all information available regarding this patient. 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 02/13/2019 Carotid stenosis, bilateral 02/13/2019 PAD (peripheral artery disease) 01/16/2019 Immunizations Immunization Administration Dates Next Due INFLUENZA VACCINE 03/30/2022 Family History Relation Name Status Comments Father Stroke, Kidney Failure Mother Emphysema Social History Tobacco Use Types Packs/Day Years Used Date Smoking Tobacco: Former Cigarettes 0 Q uit: 2013 Smokeless Tobacco: Never Tobacco [...] AWV CALENDAR YEAR 2024 COVID-19 VACCINE (1 2024-2 6 season) 2025 INFLUENZA VACCINE (#1) 2025 , [...] patient's age to complete this topic Insurance [facility] MANAGED MEDICARE ADV [facility] MANAGED MEDICARE ADV MEDICARE MEDICARE MEDICARE MEDICARE Member Subscriber Plan / Payer ( fective 2012-Present) Name:Zaira Bowles Member ID:[id number] Relation to Subscriber:Self Name:ZAIRA BOWLES Subscriber ID:[id number] Payer ID:Not on file Group ID:Not on file Type:Medicare [address] MED[address]ARE MEDICARE MEDICARE MEDICARE MEDICARE MEDICARE MEDICARE MEDICARE Care Teams Manager Pulmonary Relationship Specialty Start Date End Date Rafita Carrion DO PCP - General 08/17/22
--- OUTSIDE RECORDS SUMMARY | 2025-06-18 15:08 | XMS_ITS | Clinical Summary ---
Author Organization [facility] Address [address] Ramon: Epic Prelude ADT [place] [phone] Care Team Providers Care Hand Spring Former Name Role Phone Unavailable Primary Care Provider Unavailabl e Encounters Date Type Department Care Team Description 05/01/2025 External Device Data [facility] ABSTRACTION Provider, Abstract 04/03/2025 External Device Data [facility] ABSTRACTION Provider, Abstract from Last 3 Months Immunizations Immunization Administration Dates Next Due (COMRINATY)(12YR UP) COVID-1 9 VACCINE, MRNA (PF)30 MCG/0.3 ML, IM SYRINGE 04/15/2024 (PREVNAR 20)(6 WKS UP) PNEUM OCOCCAL CONJUGATE VACCINE 20-VALENT (PCV20), POLYSACCHARIDE [id number] CONJUGATE, ADJUVANT 0.5 ML (PF) IM 04/22/2024 (SHINGRIX)(50 YRS UP) ZOSTER VACCINE RECOMBINANT, 0.5 ML, IM 07/24/2024,04/27/2024 INFLUENZA VACCINE HIGH DOSE QUADRIVALENT 65 YR UP PF IM 04/12/2023,04/23/2022 INFLUENZA VACCINE HIGH DOSE TRIVALENT SPLIT VIRUS, (65 YR UP), 0.5ML (PF), IM 05/01/2025,04/06/2024 Social History Tobacco Use Types Packs/Day Years [...] 75+ series) 2022 COVID-19 Vaccine (2 - 2024-2 6 season) 2025 04/15/2024 PNEUMOCOCCAL VACCINE 50+ YEARS Completed 04/22/2024 ZOSTER VACCINE Completed 07/24/2024, 04/27/2024 INFLUENZA VACCINE Completed 05/01/2025, , 04/12/2023, Additional history exists Insurance RX [employer] Medicare Part B RX [employer] Member Subscriber Plan / Payer (Ef fective for All Dates) Name:Veronica Irwin Relation to Subscriber:Self Name:Veronica Irwin Payer ID:Not on file Group ID:[id number] Type:RX Medicare Part D Address: [place] [place]
== END 2025-06-18 13:03 | disposition home or self-care (01) ==
DX: Z12.2 Encounter for screening for malignant neoplasm of respiratory organs (principal); Z87.891 Personal history of nicotine dependence; I25.84 Coronary atherosclerosis due to calcified coronary lesion; I70.8 Atherosclerosis of other arteries; K55.1 Chronic vascular disorders of intestine; J44.9 Chronic obstructive pulmonary disease, unspecified
CPT/HCPCS: 71271